=== PATIENT | female | born 1950 | race Caucasian/White ===

== ENCOUNTER 2016-12-17 22:24 | Emergency (ER) | payer MEDICARE ==
[2016-12-17 22:32] VITALS: BP 132/69
--- NOTE | 2016-12-17 23:49 | ER Document Report ---
HPI - HPI Patient complains to provider of: Rash Onset: Other - Several days ago Quality of pain: Fullness Pain Level: Denies Context: 56-year-old female was at her mother's house using a different laundry detergent and has developed a scaly itchy rash on her trunk and neck. She has a chronic rash under both breasts which is not the same. sHe came to the emergency room because she is unable to sleep due to the itching Associated Symptoms: None Exacerbated by: Denies Relieved by: Denies Similar symptoms previously: No Recently seen / treated by doctor: No - ROS ROS below otherwise negative: Yes Systems Reviewed and Negative: Yes All other systems reviewed and negative - REPRODUCTIVE Reproductive: DENIES: : - DERM Skin Color: Normal, [place] Past Medical History - General Information source: Patient - Social History Smoking Status: Never Smoker Frequency of alcohol use: None Drug Abuse: None Lives with: Spouse/Significant other Family History: Reviewed & Not Pertinent Patient has suicidal ideation: No Patient has homicidal ideation: No Renal/ Medical History: Denies: Hx Peritoneal Dialysis Surgical Hx: Negative - Immunizations Hx Diphtheria, Pertussis, Tetanus Vaccination: No Vertical Provider Document - CONSTITUTIONAL Agree With Documented VS: Yes Exam Limitations: No Limitations General Appearance: No Apparent Distress - INFECTION CONTROL TRAVEL OUTSIDE OF THE [place] IN LAST 30 DAYS: No - HEENT HEENT: Normal ENT Exam - NECK Neck: Supple - RESPIRATORY Respiratory: Breath Sounds Normal, No Respiratory Distress O2 Sat by Pulse Oximetry: 97 - CARDIOVASCULAR Cardiovascular: Regular Rate, Regular Rhythm - GI/ABDOMEN Gastrointestinal: Abdomen Soft, Abdomen Non-Tender - MUSCULOSKELETAL/EXTREMETIES Musculoskeletal/Extremeties: MAEW, FROM - NEURO Level of Consciousness: Awake, Alert - DERM Integumentary: Rash - Scaly maculopapular rash that is demarcated at the Bra line, strap line and waistline Course - Vital Signs Vital signs: Temp Pulse Resp BP Pulse Ox 98.0 F 77 16 132/69 H 97 12/17/16 22:29 12/17/16 22:29 12/17/16 22:29 12/17/16 22:29 12/17/16 22:29 Discharge - Discharge Clinical Impression: Contact dermatitis Qualifiers: Contact dermatitis type: allergic Contact dermatitis trigger: unspecified trigger Qualified Code(s): L23.9 - Allergic contact dermatitis, unspecified cause Condition: Good Disposition: HOME, SELF-CARE Instructions: Contact Dermatitis ([facility]), Steroid Medication, Use of Diphenhydramine, Family Physicians / Practices Additional Instructions: unscented, dye free detergents dove unscented soap to er if worse see retort pre cooker if persists Prescriptions: Prednisone [Deltasone 10 mg Tablet] 10 mg PO ASDIR PRN #15 tablet PRN Reason: Referrals: JEZ FELDMAN DO [ACTIVE STAFF] - Follow up as needed
[2016-12-18] MEDS ORDERED: DIPHENHYDRAMINE HCL 50 MG CAPSULE PO ONE (00:19)
[2016-12-18] MEDS ORDERED: PREDNISONE 20 MG TABLET PO ONE (00:19)
== END 2016-12-18 00:30 | disposition home or self-care (01) ==
LOC: ER 22:24
DX: L23.9 Allergic contact dermatitis, unspecified cause (principal); R21 Rash and other nonspecific skin eruption
CPT/HCPCS: 99282; A9270 ×2; J7512

== ENCOUNTER 2018-05-15 01:12 | Emergency (ER) | payer MEDICARE ==
[2018-05-15 01:18] VITALS: BP 126/62
[2018-05-15] MEDS ORDERED: HYDROXYZINE PAMOATE 50 MG CAPSULE PO ONE (01:37)
--- NOTE | 2018-05-15 01:41 | ER Document Report ---
HPI - HPI Pain Level: Denies Notes: Patient presents with complaint of rash ongoing since December. Patient reports she has been seen by her primary care provider in an urgent care and has tried Benadryl and prednisone without relief. Patient reports that the rash is itchy but does not hurt. Patient does report that she has been out working in her yard over the last several months. Patient unsure what has caused the rash. - REPRODUCTIVE LMP: na Reproductive: DENIES: : Past Medical History - General Information source: Patient - Social History Smoking Status: Current Every Day Smoker Family History: Reviewed & Not Pertinent - Medical History Medical History: Negative Renal/ Medical History: Denies: Hx Peritoneal Dialysis Surgical Hx: Negative - Immunizations Hx Diphtheria, Pertussis, Tetanus Vaccination: No Vertical Provider Document - CONSTITUTIONAL Notes: PHYSICAL EXAMINATION: GENERAL: Well-appearing, well-nourished and in no acute distress. HEAD: Atraumatic, normocephalic. EYES: Pupils equal round extraocular movements intact, conjunctiva are normal. ENT: Nares patent NECK: Normal range of motion LUNGS: No respiratory distress Musculoskeletal: Normal range of motion NEUROLOGICAL: Normal speech, normal gait. PSYCH: Normal mood, normal affect. SKIN: Warm, Dry, normal turgor, scattered pruritic rash with multiple larger lesions noted. - INFECTION CONTROL TRAVEL OUTSIDE OF THE [place] IN LAST 30 DAYS: No Course - Re-evaluation Re-evalutation: Rash does not appear to be anything life-threatening. Will place the patient on hydroxyzine as patient has already tried a course of prednisone without relief. Patient will be referred to dermatology. I did bring Dr. Mosquera to the room to evaluate the patient as well and she agrees with the plan of care. - Vital Signs Vital signs: Temp Pulse Resp BP Pulse Ox 97.5 F 77 18 126/62 H 97 05/15/18 01:17 05/15/18 01:17 05/15/18 01:17 05/15/18 01:17 05/15/18 01:17 Discharge - Discharge Clinical Impression: Rash Condition: Stable Disposition: HOME, SELF-CARE Additional Instructions: We are unsure exactly what is causing your rash but it does not appear to be life-threatening. Please take the hydroxyzine as directed to help with the itching. Please follow-up with the spreader, I have enclosed the contact information for them, call them tomorrow to get an appointment. Prescriptions: Hydroxyzine HCl [Atarax 25 mg Tablet] 1 - 2 tab PO QID #30 tablet Referrals: JEZ FELDMAN DO [ACTIVE STAFF] - Follow up as needed
== END 2018-05-15 01:49 | disposition home or self-care (01) ==
LOC: ER 01:12
DX: R21 Rash and other nonspecific skin eruption (principal); F17.200 Nicotine dependence, unspecified, uncomplicated
CPT/HCPCS: 99282; A9270

== ENCOUNTER → 2019-05-14 | Outpatient (CLI) | payer MEDICARE ==
--- NOTE | 2019-05-14 15:02 | WOMENS IMAGING REPORT ---
EXAM DESCRIPTION: U/S BREAST UNILAT LIMITED COMPLETED DATE/TIME: 05/14/2019 1:30 pm REASON FOR STUDY: R92.2 INCONCLUSIVE MAMMO R92.2 INCONCLUSIVE MAMMOGRAM COMPARISON: 05/05/2019 TECHNIQUE: Real-time and static grayscale imaging performed of the right breast targeted to the area of clinical/mammographic concern. Selected color Doppler images recorded. LIMITATIONS: None. FINDINGS: In the 10 o'clock position, there is an 8 x 5 x 7 mm hypoechoic nodule with incomplete pos terior wall and heterogeneous posterior shadowing. IMPRESSION: Indeterminate nodule. BIRAD: 4 Suspicious. Biopsy should be performed in the absence of clinical contra-indication. RECOMMENDATION: RECOMMENDED FOLLOW-UP: Ultrasound-guided biopsy right breast. COMMENT: The [employer] (A[employer]) has developed recommendations for screening MRI of the breasts in certain patient populations, to be used in conjunction with mammography. Breast MRI s urveillance may be appropriate for women with more than 20% lifetime risk of developing breast cancer as determined by genetic testing, significant family history of the disease, or history of mantle r adiation for Hodgkins Disease. ACR Practice Guidelines 2008. TECHNICAL DOCUMENTATION: JOB ID: [id number] [employer]- All Rights Reserved Reading location - IP/workstation name: [email or web address]
== END ==
LOC: WI 12:55
PROVIDERS: ATTEND Internal Medicine
DX: N63.10 Unspecified lump in the right breast, unspecified quadrant (principal)
CPT/HCPCS: 76642

== ENCOUNTER 2020-03-25 20:38 | Inpatient (IN) | payer MEDICARE ==
--- NOTE | 2020-03-26 01:26 | ER Document Report ---
ED GI/ - General Chief Complaint: Nausea/Vomiting/Diarrhea Stated Complaint: VOMITING/POSSIBLE SEIZURE Time Seen by Provider: 03/26/20 01:05 Primary Care Provider: CASSANDRA AYALA MD [ACTIVE STAFF] - Follow up as needed Notes: Patient is a 69-year-old female that comes emergency department for chief complaint of nausea and vomiting. Patient states she has had 3 days now of vomiting and today she just dry heaves several times. Patient denies any other symptoms including fever, sick contacts, diarrhea, abnormal bowel movements, chest pain, abdominal pain, flank pain. Patient states she actually feels much better now and denies any current symptoms. Patient denies any abdominal surgeries. She states that she was recently given Bactrim for a rash but has been taking this over a week, she only takes ibuprofen as needed for pain, she denies regular alcohol, or denies smoking, denies recreational drugs, denies any other medical history at all. TRAVEL OUTSIDE OF THE [place] IN LAST 30 DAYS: No - Related Data Allergies/Adverse Reactions: No Known Allergies Allergy (Unverified 02/19/12 03:33) Past Medical History - General Information source: Patient - Social History Smoking Status: Former Smoker Chew tobacco use (# tins/day): No Frequency of alcohol use: None Drug Abuse: None Lives with: Alone Family History: Reviewed & Not Pertinent Renal/ Medical History: Denies: Hx Peritoneal Dialysis - Immunizations Hx Diphtheria, Pertussis, Tetanus Vaccination: No Review of Systems - Review of Systems Constitutional: No symptoms reported EENT: No symptoms reported Cardiovascular: No symptoms reported Respiratory: No symptoms reported Gastrointestinal: See HPI Genitourinary: No symptoms reported Female Genitourinary: No symptoms reported Musculoskeletal: No symptoms reported Skin: No symptoms reported Hematologic/Lymphatic: No symptoms reported Neurological/Psychological: No symptoms reported Physical Exam - Vital signs Vitals: Temp Pulse Resp BP Pulse Ox 99.9 F 102 H 20 159/95 H 97 03/25/20 20:47 03/25/20 20:47 03/25/20 20:47 03/25/20 20:47 03/25/20 20:47 - Notes Notes: GENERAL: Alert, interacts well. No acute distress. HEAD: Normocephalic, atraumatic. EYES: Pupils equal, round, and reactive to light. Extraocular movements intact. ENT: Oral mucosa moist, tongue midline. Oropharynx unremarkable. Airway patent. NECK: Full range of motion. Supple. Trachea midline. No lymphadenopathy. LUNGS: Clear to auscultation bilaterally, no wheezes, rales, or rhonchi. No respiratory distress. Non-tender chest wall. HEART: Regular rate and rhythm. No murmur ABDOMEN: Mild generalized tenderness, nonspecific, no guarding. RECTAL: Nontender, no bleeding noted, no masses or lesions noted, Hemoccult negative. Exam performed with Kanchan BOYKIN at bedside. EXTREMITIES: Moves all 4 extremities spontaneously. No edema, normal radial and dorsalis pedis pulses bilaterally. No cyanosis. BACK: no cervical, thoracic, lumbar midline tenderness. No saddle anesthesia, normal distal neurovascular exam. Moves all extremities in full range of motion. NEUROLOGICAL: Alert and oriented x3. Normal speech. Cranial nerves II through XII grossly intact. Strength 5/5 in all extremities. PSYCH: Normal affect, normal mood. SKIN: Various pick lesions in multiple stages of healing over the extremities, no overt erythema, induration, fluctuance, swelling, or concerning findings. No active infection noted. Slightly pale. Course - Re-evaluation Re-evalutation: Patient initially very vague, stating she is not having any symptoms anymore, states she feels much better. Patient's blood pressure slightly borderline but she states this is her baseline, patient is very petite in size. Patient has some mild generalized abdominal tenderness, nonspecific, no guarding. Patient also has multiple areas that appear to be picked with scabs but there does not appear to be any current cellulitis or concerning findings in regards to the sk in exam. Lungs clear, no nuchal rigidity or headache. Work-up pending. Patient initially refusing IV, however she changed her mind and full work-up was completed. CBC shows leukocytosis at 14.5 thousand with 8% bandemia left shift. Hemoglobin is significantly low at 6.6 with microcytic anemia. I did perform a rectal exam but this was unremarkable and Hemoccult negative. Previous hemoglobin in the system is back in 2011 and was 11.9. Patient denies blood in stool, hematemesis, vaginal bleeding. She is not on a blood thinner. Acute abdominal series and x-ray unremarkable, chemistry nonspecific with hyponatremia which is also new compared to prior. Urinalysis unremarkable. Discussed with Dr. Mon, will transfuse 1 unit, CT abd/pelvis pending. Patient began to have a fever, this actually began before the blood transfusion, patient will be treated with Tylenol. I reevaluated patient during transfusion, she has no rash, flushing, itching, or any other complaints. No significant change from prior. As result I do not suspect a transfusion reaction, I am more concerned about SIRS, CT of the abdomen pelvis with no acute findings, unsure of infection source at this time. Started on broad-spectrum antibiotics with cefepime, discussed with Dr. Mon, will discuss with hospitalist for admission. Patient's primary care is Dr. Ayala. I spoke with Dr. Saunders, on-call for Dr. Ayala, patient accepted to [facility] full admission, he requests vancomycin and COVID testing. I have discussed with patient in detail, she states appreciation and agreement with admission. - Vital Signs Vital signs: Temp Pulse Resp BP Pulse Ox 102.6 F H 96 18 106/51 L 97 03/26/20 05:52 03/26/20 04:40 03/26/20 04:40 03/26/20 04:40 03/26/20 04:40 - Laboratory Result Diagrams: 03/26/20 01:04 03/26/20 01:04 Laboratory results interpreted by me: 03/25/20 03/26/20 03/26/20 20:41 01:04 01:04 WBC 14.5 H Hgb 6.6 L Hct 22.1 L MCV 59 L MCH 17.6 L MCHC 30.0 L RDW 20.6 H Seg Neuts % (Manual) 84 H Band Neutrophils % 8 H Lymphocytes % (Manual) 4 L Abs Neuts (Manual) 13.3 H Sodium 126.8 L Chloride 95 L Carbon Dioxide 21 L Glucose 130 H POC Glucose 151 H Calcium 7.8 L Direct Bilirubin 0.8 H AST 77 H Total Protein 6.1 L Albumin 3.1 L Lipase 18.0 L Urine Urobilinogen Crossmatch 03/26/20 03/26/20 02:40 03:05 WBC Hgb Hct MCV MCH MCHC RDW Seg Neuts % (Manual) Band Neutrophils % Lymphocytes % (Manual) Abs Neuts (Manual) Sodium Chloride Carbon Dioxide Glucose POC Glucose Calcium Direct Bilirubin AST Total Protein Albumin Lipase Urine Urobilinogen 4.0 H Crossmatch See Detail - EKG Interpretation by Me Additional EKG results interpreted by me: EKG shows sinus rhythm at a rate of 91, normal axis, QTC prolonged at 517, borderline left bundle branch block, no T wave inversions or ST segment changes in consecutive leads. Discharge - Discharge Clinical Impression: Anemia requiring transfusions, Bandemia Fever Qualifiers: Fever type: unspecified Qualified Code(s): R50.9 - Fever, unspecified Vomiting Qualifiers: Vomiting type: unspecified Vomiting Intractability: non-intractable Nausea presence: with nausea Qualified Code(s): R11.2 - Nausea with vomiting, unspecified Condition: Stable Disposition: ADMITTED INPATIENT Admitting Provider: Chip - for Dr. Ayala Unit Admitted: [facility] Referrals: CASSANDRA AYALA MD [ACTIVE STAFF] - Follow up as needed
[2020-03-26 01:54] LABS: ALBUMIN 3.1 g/dL (3.5-5.0); ALKALINE PHOSPHATASE 104 U/L (38-126); ANION GAP 11 (5-19); ASPARTATE AMINO TRANSFERASE 77 U/L (14-36); BILIRUBIN,DIRECT 0.8 mg/dL (0.0-0.4); BILIRUBIN,TOTAL 1.1 mg/dL (0.2-1.3); BLOOD UREA NITROGEN 12 mg/dL (7-20); CALCIUM 7.8 mg/dL (8.4-10.2); CARBON DIOXIDE 21 mmol/L (22-30); CHLORIDE 95 mmol/L (98-107); GLUCOSE 130 mg/dL (75-110); POTASSIUM 3.6 mmol/L (3.6-5.0); TOTAL PROTEIN 6.1 g/dL (6.3-8.2)
--- NOTE | 2020-03-26 02:21 | RADIOLOGY REPORT (SQ) ---
EXAM DESCRIPTION: XR ABDOMEN SUPINE AND ERECT WITH CHEST (ABD ACUTE SERIES) COMPLETED DATE/TME: 03/26/2020 01:24 CLINICAL HISTORY: 69 years, Female, vomiting x3 days, abd pain COMPARISON: Chest x-ray 02/19/2012 NUMBER OF VIEWS: 3 TECHNIQUE: Upright chest with supine and erect views of the abdomen LIMITATIONS: None. FINDINGS: Heart size normal. Lungs clear. No pneumothorax. No free air under the hemidiaphragms. Bowel gas pattern is nonspecific. Osteopenia. Moderate gas and stool in the colon IMPRESSION: No acute cardiopulmonary process. Moderate gas and stool in the colon copyright 2011 [employer]- All Rights Reserved
[2020-03-26 02:26] LABS: HEMATOCRIT 22.1 % (36.0-47.0); MEAN CORPUSCULAR HEMOGLOBIN 17.6 pg (27.0-33.4); PLATELET COUNT 247 10^3/uL (150-450); RED BLOOD COUNT 3.77 10^6/uL (3.72-5.28); RED CELL DISTRIBUTION WIDTH 20.6 % (11.5-14.0); WHITE BLOOD COUNT 14.5 10^3/uL (4.0-10.5)
[2020-03-26 02:48] LABS: MEAN CORPUSCULAR VOLUME 59 fl (80-97)
[2020-03-26 02:51] LABS: ABSOLUTE LYMPHOCYTES# (MANUAL) 0.6 10^3/uL (0.5-4.7); ABSOLUTE MONOCYTES # (MANUAL) 0.6 10^3/uL (0.1-1.4); BAND NEUTROPHILS % (MANUAL) 8 % (3-5); BASOPHILS % (MANUAL) 0 % (0-2); EOSINOPHILS % (MANUAL) 0 % (0-6); LYMPHOCYTES % (MANUAL) 4 % (13-45); MONOCYTES % (MANUAL) 4 % (3-13); SEGMENTED NEUTROPHILS % (MAN) 84 % (42-78); TOTAL CELLS COUNTED 100
[2020-03-26 02:54] LABS: ANISOCYTOSIS 2+; OVALOCYTES 1+; POIKILOCYTOSIS 2+; POLYCHROMASIA SLIGHT; SCHISTOCYTES SLIGHT; TEAR DROP CELLS SLIGHT; TOXIC GRANULATION 1+; TOXIC VACUOLATION PRESENT
[2020-03-26 02:55] LABS: PLATELET COMMENT ADEQUATE
[2020-03-26 02:56] LABS: HEMOGLOBIN 6.6 g/dL (12.0-15.5)
[2020-03-26 03:06] LABS: APPEARANCE,URINE CLEAR; BILIRUBIN,URINE NEGATIVE (NEGATIVE); COLOR,URINE YELLOW; GLUCOSE, URINE NEGATIVE (NEGATIVE); KETONES,URINE NEGATIVE (NEGATIVE); LEUKOCYTE ESTERASE,URINE NEGATIVE (NEGATIVE); NITRITE,URINE NEGATIVE (NEGATIVE); PROTEIN,URINE NEGATIVE (NEGATIVE); URINE SPECIFIC GRAVITY 1.008
[2020-03-26] MEDS ORDERED: NORMAL SALINE 250 ML IV PRN ×2 (03:06)
--- NOTE | 2020-03-26 04:25 | RADIOLOGY REPORT (SQ) ---
EXAM: CT abdomen and pelvis with IV contrast CLINICAL DATA: 69-year-old female with abdominal pain and vomiting TECHNICAL DATA: Axial CT imaging of the abdomen and pelvis was performed following the administration of intravenous contrast.. Oral contrast was not administered. Sagittal and coronal reconstructed images were then performed. The CT study is performed according to ALARA (as low as reasonably achievable) or ALARA/IMAGE GENTLY, with automatic adjustment of mA and/or kV according to patient size. Performed on: 03/26/2020 at 3:51 AM. Comparison: No prior studies were available for comparison. FINDINGS: Lung bases: The lung bases are clear. Liver:The liver is normal in size and configuration. No focal hepatic abnormalities are identified. There is slightly decreased attenuation of the liver which can be seen with fatty infiltration. Spleen:The spleen is normal is size, configuration and attenuation. Gallbladder and bile duct: The gallbladder is well distended and unremarkable. There is no biliary ductal dilatation. Pancreas: The pancreas is grossly normal in size and configuration. Adrenal Glands:The adrenal glands are normal in size and configuration. Kidneys:The kidneys are normal in size and configuration. There is no evidence of hydronephrosis. There is no evidence of nephrolithiasis. No definite solid or cystic renal mass lesions are identified. Stomach:The stomach is grossly normal. There is a small hiatal hernia. Bowel:The bowel gas pattern is non specific and non obstructive. Appendix: The appendix is normal. Free air:There is no evidence of free air. Free fluid: There is no evidence of free fluid. Vasculature: The aorta is normal in caliber and contour. The inferior vena cava is grossly unremarkable. Lymphadenopathy: No pathologic lymphadenopathy is identified. Bladder: The bladder is partially distended and smooth in contour. Reproductive: The uterus is grossly within normal limits. Bones: No acute osseous abnormalities are identified. There is trace anterolisthesis of L4 relative to L5. Soft tissues: No focal soft tissue abnormalities are identified. IMPRESSION: 1. No evidence of acute intra-abdominal or intrapelvic pathology. 2. There is no evidence of bowel obstruction. 3. Very small hiatal hernia.
[2020-03-26] MEDS ORDERED: ACETAMINOPHEN 325 MG TABLET PO ONE (04:47)
[2020-03-26] MEDS ORDERED: ACETAMINOPHEN 325 MG TABLET ONE (04:47)
[2020-03-26] MEDS ORDERED: CEFEPIME 2 GM/D5W RTU 2 GM/50 ML RTUPB IV ONE ×3 (04:48→22:27)
[2020-03-26] MEDS ORDERED: IBUPROFEN 400 MG TABLET PO ONE (05:42)
[2020-03-26] MEDS ORDERED: VANCOMYCIN HCL INJ 1000 MG VIAL IV ONE (05:51)
--- NOTE | 2020-03-26 08:22 | EKG REPORT ---
SEVERITY:- ABNORMAL ECG - SINUS RHYTHM INCOMPLETE LEFT BUNDLE BRANCH BLOCK LOW VOLTAGE IN FRONTAL LEADS CONSIDER ANTERIOR INFARCT : Confirmed by: Donnell Garcia MD 26-Mar-2020 08:20:56
[2020-03-26 09:16] LABS: HEMATOCRIT 25.1 % (36.0-47.0); HEMOGLOBIN 8.1 g/dL (12.0-15.5); MEAN CORPUSCULAR HEMOGLOBIN 20.1 pg (27.0-33.4); MEAN CORPUSCULAR HGB CONC 32.4 g/dL (32.0-36.0); MEAN CORPUSCULAR VOLUME 62 fl (80-97); PLATELET COUNT 188 10^3/uL (150-450); RED BLOOD COUNT 4.05 10^6/uL (3.72-5.28); RED CELL DISTRIBUTION WIDTH 25.7 % (11.5-14.0); WHITE BLOOD COUNT 9.1 10^3/uL (4.0-10.5)
[2020-03-26] MEDS ORDERED: VANCOMYCIN HCL 1,000 MG in DEXTROSE 5%-WATER 250 ML IV ONE (09:30)
[2020-03-26 09:43] LABS: ABSOLUTE LYMPHOCYTES# (MANUAL) 0.2 10^3/uL (0.5-4.7); ABSOLUTE MONOCYTES # (MANUAL) 0.3 10^3/uL (0.1-1.4); BAND NEUTROPHILS % (MANUAL) 3 % (3-5); BASOPHILS % (MANUAL) 0 % (0-2); EOSINOPHILS % (MANUAL) 1 % (0-6); LYMPHOCYTES % (MANUAL) 1 % (13-45); MONOCYTES % (MANUAL) 3 % (3-13); SEGMENTED NEUTROPHILS % (MAN) 91 % (42-78); TOTAL CELLS COUNTED 100
[2020-03-26 09:45] LABS: ANISOCYTOSIS 3+; HYPOCHROMASIA 2+; POIKILOCYTOSIS SLIGHT; POLYCHROMASIA SLIGHT; TEAR DROP CELLS SLIGHT; TOXIC GRANULATION 1+; TOXIC VACUOLATION PRESENT
[2020-03-26] MEDS ORDERED: NORMAL SALINE 500 ML IV ONE (09:45)
[2020-03-26 09:46] LABS: PLATELET COMMENT ADEQUATE
[2020-03-26] MEDS ORDERED: CEFEPIME HCL 2 GM in DEXTROSE 5%-WATER 50 ML IV ONE (11:30)
[2020-03-26] MEDS: NORMAL SALINE 1000 ML 1,000 ML IV PRN (14:50)
[2020-03-26] MEDS ORDERED: ONDANSETRON HCL INJ/PF 4 MG/2 ML SDV ONE (20:47)
[2020-03-26] MEDS ORDERED: ONDANSETRON HCL INJ/PF 4 MG/2 ML SDV IV PRN (21:08)
--- NOTE | 2020-03-26 21:08 | PDOC H&P ---
History of Present Illness Admission Date/PCP: 03/26/20 05:58 CASSANDRA AYALA MD Patient complains of: Nausea, Vomiting, Diarrhea History of Present Illness: KIEL ADAMES is a 69 year old female patient of Dr Ayala who presented to the ED with 3 days history of nausea and vomiting and subsequent development of diarrhea a day prior to her presentation. She denied any associated abdominal pain. No tarry or black stool. No hematemesis or hematochexia. Patient denied any definite fever or chills prior to her presentation but reported development of fever while in the ED. She denied consumption of any unusual drink or food prior to onset of her symptoms. No associated dysuria, hematuria, frequency, or flank pain. She denied any coughing or chest pain. No headache or dizziness. She denied recent travel or exposure to sick individual. Her initial ED evaluation was significant for vitals suggestive of inflammatory process with tachycardia, tachypnea, elevated temperature, anemia, and significant leukocytosis with left shift and bandemia. She reported use of prescribed Bactrim and OTC Ibuprofen recently. She was advised hospitalization for further evaluation and management. Her morbidities are listed below. Past Medical History Psychiatric Medical History: Reports: Depression Social History Lives with: Alone Smoking Status: Never Smoker Electronic Cigarette use?: No Frequency of Alcohol Use: Rare Hx Recreational Drug Use: No Drugs: None Hx Prescription Drug Abuse: No - Advance Directive Resuscitation Status: Full Code Family History Family History: Reviewed & Not Pertinent Parental Family History Reviewed: Yes Children Family History Reviewed: Yes Sibling(s) Family History Reviewed.: Yes Medication/Allergy Home Medications: Esomeprazole Magnesium [Nexium] 20 mg PO DAILY 03/26/20 Allergies/Adverse Reactions: No Known Allergies Allergy (Unverified 02/19/12 03:33) Review of Systems Constitutional: ABSENT: chills, fever(s), headache(s), weight gain, weight loss Eyes: ABSENT: visual disturbances Ears: ABSENT: hearing changes Cardiovascular: ABSENT: chest pain, dyspnea on exertion, edema, orthropnea, palpitations Respiratory: ABSENT: cough, hemoptysis Gastrointestinal: PRESENT: diarrhea, nausea, vomiting. ABSENT: abdominal pain, constipation, hematemesis, hematochezia Genitourinary: ABSENT: dysuria, hematuria Musculoskeletal: ABSENT: joint swelling Integumentary: ABSENT: rash, wounds Neurological: ABSENT: abnormal gait, abnormal speech, confusion, dizziness, focal weakness, syncope Psychiatric: ABSENT: anxiety, depression, homidical ideation, suicidal ideation Endocrine: ABSENT: cold intolerance, heat intolerance, menstrual abnormalities, polydipsia, polyuria Hematologic/Lymphatic: ABSENT: easy bleeding, easy bruising, lymphadenopathy Physical Exam Vital Signs: Temp Pulse Resp BP Pulse Ox 98.8 F 96 18 96/51 L 99 03/26/20 19:42 03/26/20 19:42 03/26/20 19:42 03/26/20 19:42 03/26/20 19:42 Intake & Output 03/25/20 03/26/20 03/27/20 06:59 06:59 06:59 Intake Total 0 1340 Balance 0 1340 Weight 50 kg 51.9 kg General appearance: PRESENT: no acute distress Head exam: PRESENT: atraumatic, normocephalic Eye exam: PRESENT: conjunctiva pink, EOMI, PERRLA. ABSENT: scleral icterus Ear exam: PRESENT: normal external ear exam Mouth exam: PRESENT: moist, tongue midline Neck exam: PRESENT: full ROM. ABSENT: carotid bruit, JVD, lymphadenopathy, thyromegaly Respiratory exam: PRESENT: clear to auscultation izzy Cardiovascular exam: PRESENT: RRR, +S1, +S2. ABSENT: diastolic murmur, rubs, systolic murmur Pulses: PRESENT: normal dorsalis pedis pul, +2 pedal pulses bilateral Vascular exam: PRESENT: normal capillary refill GI/Abdominal exam: PRESENT: normal bowel sounds, soft. ABSENT: distended, guarding, mass, organolmegaly, rebound, tenderness Rectal exam: PRESENT: deferred Extremities exam: ABSENT: pedal edema Neurological exam: PRESENT: alert, awake, oriented to person, oriented to place, oriented to time, oriented to situation, CN II-XII grossly intact. ABSENT: motor sensory deficit Psychiatric exam: PRESENT: appropriate affect, normal mood. ABSENT: homicidal ideation, suicidal ideation Skin exam: PRESENT: dry, intact, warm. ABSENT: cyanosis, rash Results Laboratory Results: 03/26/20 09:07 03/26/20 01:04 03/26/20 03/26/20 03/26/20 01:04 01:04 01:04 WBC 14.5 H RBC 3.77 Hgb 6.6 L Hct 22.1 L MCV 59 L MCH 17.6 L MCHC 30.0 L RDW 20.6 H Plt Count 247 Seg Neutrophils % Not Reportable Sodium 126.8 L Potassium 3.6 Chloride 95 L Carbon Dioxide 21 L Anion Gap 11 BUN 12 Creatinine 0.71 Est GFR ( Amer) > 60 Glucose 130 H Lactic Acid 1.6 Calcium 7.8 L Total Bilirubin 1.1 AST 77 H Alkaline Phosphatase 104 Total Protein 6.1 L Albumin 3.1 L Lipase 18.0 L Urine Color Urine Appearance Urine pH Ur Specific [place] Urine Protein Urine Glucose (UA) Urine Ketones Urine Blood Urine Nitrite Ur Leukocyte Esterase Urine WBC (Auto) Urine RBC (Auto) Blood Type Antibody Screen 03/26/20 03/26/20 03/26/20 02:40 03:05 09:07 WBC 9.1 RBC 4.05 Hgb 8.1 L Hct 25.1 L MCV 62 L MCH 20.1 L MCHC 32.4 RDW 25.7 H Plt Count 188 Seg Neutrophils % Not Reportable Sodium Potassium Chloride Carbon Dioxide Anion Gap BUN Creatinine Est GFR ( Amer) Glucose Lactic Acid Calcium Total Bilirubin AST Alkaline Phosphatase Total Protein Albumin Lipase Urine Color YELLOW Urine Appearance CLEAR Urine pH 6.0 Ur Specific [place] 1.008 Urine Protein NEGATIVE Urine Glucose (UA) NEGATIVE Urine Ketones NEGATIVE Urine Blood NEGATIVE Urine Nitrite NEGATIVE Ur Leukocyte Esterase NEGATIVE Urine WBC (Auto) 1 Urine RBC (Auto) 1 Blood Type O POSITIVE Antibody Screen NEGATIVE 03/26/20 03/26/20 01:04 06:30 Troponin I 0.017 0.018 Impressions: Acute Abdomen Series 03/26/20 01:24 IMPRESSION: No acute cardiopulmonary process. Moderate gas and stool in the colon copyright 2011 [employer]- All Rights Reserved Abdomen/Pelvis CT 03/26/20 02:59 IMPRESSION: 1. No evidence of acute intra-abdominal or intrapelvic pathology. 2. There is no evidence of bowel obstruction. 3. Very small hiatal hernia. Assessment & Plan - Diagnosis (1) SIRS (systemic inflammatory response syndrome) Is this a current diagnosis for this admission?: Yes Plan: See admitting attending physician orders for details of care plan. (2) Anemia requiring transfusions Is this a current diagnosis for this admission?: Yes Plan: See admitting attending physician orders for details of care plan. (3) Gastroenteritis Is this a current diagnosis for this admission?: Yes Plan: See admitting attending physician orders for details of care plan. (4) Suspected COVID-19 virus infection Is this a current diagnosis for this admission?: Yes Plan: See admitting attending physician orders for details of care plan. - Time Time Spent: 50 to 70 Minutes Medications reviewed and adjusted accordingly: Yes Anticipated Discharge Disposition: Home with Home Health Anticipated Discharge Timeframe: within 72 hours - Inpatient Certification Based on my medical assessment, after consideration of the patient's comorbidities, presenting symptoms, or acuity I expect that the services needed warrant INPATIENT care.: Yes I certify that my determination is in accordance with my understanding of Medic are's requirements for reasonable and necessary INPATIENT services [42 CFR 412.3e].: Yes Medical Necessity: Significant Comorbidiites Make Outpatient Treatment Too Risky, Need Close Monitoring Due to Risk of Patient Decompensation, Need For IV Fluids, Need For Continuous Telemetry Monitoring, Need for IV Antibiotics, Risk of Complication if Not Cared For in Hospital, Risk of Diagnosis Which Will Require Inpatient Eval/Care/Monitoring Post Hospital Care: D/C [employer] Worker Documentation - Plan Summary Plan Summary: See admitting attending physician orders for details of care plan.
[2020-03-26] MEDS ORDERED: VANCOMYCIN HCL 0 MG in DEXTROSE 5%-WATER 250 ML IV NR (21:15)
[2020-03-26] MEDS ORDERED: CEFEPIME 2 GM/D5W RTU 2 GM/50 ML RTUPB IV SCH (22:00)
[2020-03-26 22:11] LABS: ABSOLUTE RETICS # 0.053 10^6/uL (0.028-0.122); RETICULOCYTE COUNT (AUTO) 1.29 % (0.66-2.85)
--- NOTE | 2020-03-26 22:26 | RADIOLOGY REPORT (SQ) ---
EXAM DESCRIPTION: XR CHEST 1 VIEW COMPLETED DATE/TME: 03/26/2020 00:00 CLINICAL HISTORY: 69 years Female SIRS COMPARISON: 02/19/2012. FINDINGS: The cardiomediastinal silhouette appears unremarkable. No consolidating infiltrates or pleural effusions. No pneumothorax. IMPRESSION: No acute abnormality is identified.
[2020-03-26 23:16] LABS: FOLATE 8.82 ng/mL (>2.76)
[2020-03-26 23:19] LABS: IRON(TIBC) < 10.1 ug/dL (37-170)
[2020-03-27 05:40] LABS: HEMATOCRIT 23.9 % (36.0-47.0); MEAN CORPUSCULAR HEMOGLOBIN 19.9 pg (27.0-33.4); MEAN CORPUSCULAR HGB CONC 32.2 g/dL (32.0-36.0); MEAN CORPUSCULAR VOLUME 62 fl (80-97); PLATELET COUNT 148 10^3/uL (150-450); RED BLOOD COUNT 3.86 10^6/uL (3.72-5.28); RED CELL DISTRIBUTION WIDTH 25.1 % (11.5-14.0); WHITE BLOOD COUNT 6.8 10^3/uL (4.0-10.5)
[2020-03-27 06:11] LABS: ALBUMIN 2.4 g/dL (3.5-5.0); ALKALINE PHOSPHATASE 164 U/L (38-126); ANION GAP 7 (5-19); ASPARTATE AMINO TRANSFERASE 95 U/L (14-36); BILIRUBIN,DIRECT 2.2 mg/dL (0.0-0.4); BILIRUBIN,TOTAL 2.5 mg/dL (0.2-1.3); BLOOD UREA NITROGEN 11 mg/dL (7-20); CALCIUM 7.3 mg/dL (8.4-10.2); CARBON DIOXIDE 18 mmol/L (22-30); CHLORIDE 104 mmol/L (98-107); GLUCOSE 97 mg/dL (75-110); TOTAL PROTEIN 5.1 g/dL (6.3-8.2)
[2020-03-27 07:06] LABS: ABSOLUTE LYMPHOCYTES# (MANUAL) 0.9 10^3/uL (0.5-4.7); ABSOLUTE MONOCYTES # (MANUAL) 0.3 10^3/uL (0.1-1.4); BAND NEUTROPHILS % (MANUAL) 1 % (3-5); BASOPHILS % (MANUAL) 0 % (0-2); EOSINOPHILS % (MANUAL) 4 % (0-6); LYMPHOCYTES % (MANUAL) 13 % (13-45); MONOCYTES % (MANUAL) 5 % (3-13); PLATELET COMMENT DECREASED; SEGMENTED NEUTROPHILS % (MAN) 77 % (42-78); TOTAL CELLS COUNTED 100
[2020-03-27 07:09] LABS: ANISOCYTOSIS 3+
[2020-03-27 07:11] LABS: BURR CELLS 2+
[2020-03-27 07:12] LABS: OVALOCYTES 1+; SCHISTOCYTES SLIGHT
[2020-03-27 07:17] LABS: HEMOGLOBIN 7.7 g/dL (12.0-15.5)
[2020-03-27] MEDS: POTASSIUM CHLORIDE 20 MEQ/50 ML RTU IV SCH ×3 (07:31→11:25)
[2020-03-27] MEDS: NORMAL SALINE 1000 ML 1,000 ML IV PRN ×2 (07:32→15:34)
[2020-03-27] MEDS: ENOXAPARIN SODIUM INJ 40 MG/0.4 ML DISP.SYRIN SUBCUT SCH (09:12)
--- NOTE | 2020-03-27 10:16 | PDOC PROGRESS REPORT ---
Subjective Progress Note for:: 03/27/20 Subjective:: No more diarrhea or vomiting but still reported mild nausea. No abdominal pain. No chest pain or difficulty with breathing. No fever or chills. Reason For Visit: ANEMIA,BANDEMIA,FEVER Physical Exam Vital Signs: Temp Pulse Resp BP Pulse Ox 98.4 F 91 17 108/53 L 100 03/27/20 07:23 03/27/20 07:23 03/27/20 07:23 03/27/20 07:23 03/27/20 07:23 Intake & Output 03/26/20 03/27/20 03/28/20 06:59 06:59 06:59 Intake Total 0 2690 42 Balance 0 2690 42 Weight 50 kg 53.3 kg General appearance: PRESENT: no acute distress Head exam: PRESENT: atraumatic, normocephalic Eye exam: PRESENT: conjunctiva pale. ABSENT: scleral icterus Mouth exam: PRESENT: moist Respiratory exam: PRESENT: clear to auscultation izzy Cardiovascular exam: PRESENT: RRR, +S1, +S2. ABSENT: diastolic murmur, rubs, systolic murmur Vascular exam: ABSENT: pallor GI/Abdominal exam: PRESENT: normal bowel sounds, soft. ABSENT: distended, guarding, mass, organolmegaly, rebound, tenderness Extremities exam: ABSENT: pedal edema Neurological exam: PRESENT: alert, awake, oriented to person, oriented to place, oriented to time, oriented to situation, CN II-XII grossly intact. ABSENT: motor sensory deficit Psychiatric exam: PRESENT: appropriate affect, normal mood. ABSENT: homicidal ideation, suicidal ideation Skin exam: PRESENT: dry, warm Results Laboratory Results: 03/27/20 04:50 03/27/20 04:50 03/26/20 03/26/20 03/27/20 21:38 21:38 04:50 WBC 6.8 RBC 3.86 Hgb 7.7 L Hct 23.9 L MCV 62 L MCH 19.9 L MCHC 32.2 RDW 25.1 H Plt Count 148 L Seg Neutrophils % Not Reportable Retic Count (auto) 1.29 Sodium Potassium Chloride Carbon Dioxide Anion Gap BUN Creatinine Est GFR ( Amer) Glucose Calcium Magnesium Iron < 10.1 L TIBC 322 Ferritin 68.10 Total Bilirubin AST Alkaline Phosphatase Total Protein Albumin Vitamin B12 548.0 Folate 8.82 03/27/20 03/27/20 04:50 04:50 WBC RBC Hgb Hct MCV MCH MCHC RDW Plt Count Seg Neutrophils % Retic Count (auto) Sodium 129.1 L Potassium 3.0 L* Chloride 104 Carbon Dioxide 18 L Anion Gap 7 BUN 11 Creatinine 0.58 Est GFR ( Amer) > 60 Glucose 97 Calcium 7.3 L Magnesium 1.8 Iron TIBC Ferritin Total Bilirubin 2.5 H AST 95 H Alkaline Phosphatase 164 H Total Protein 5.1 L Albumin 2.4 L Vitamin B12 Folate 03/26/20 03/26/20 01:04 06:30 Troponin I 0.017 0.018 Impressions: Chest X-Ray 03/26/20 00:00 IMPRESSION: No acute abnormality is identified. Acute Abdomen Series 03/26/20 01:24 IMPRESSION: No acute cardiopulmonary process. Moderate gas and stool in the colon copyright 2010 [employer]- All Rights Reserved Abdomen/Pelvis CT 03/26/20 02:59 IMPRESSION: 1. No evidence of acute intra-abdominal or intrapelvic pathology. 2. There is no evidence of bowel obstruction. 3. Very small hiatal hernia. Assessment & Plan - Diagnosis (1) SIRS (systemic inflammatory response syndrome) Is this a current diagnosis for this admission?: Yes (2) Anemia requiring transfusions Is this a current diagnosis for this admission?: Yes (3) Gastroenteritis Is this a current diagnosis for this admission?: Yes (4) Suspected COVID-19 virus infection Is this a current diagnosis for this admission?: Yes (5) Abnormal mammogram of right breast Is this a current diagnosis for this admission?: Yes Plan: In view of her mammogram and right breast US findings in 04/2019 along with her presentation, I had extensive discussion with her regarding recommendation for a biopsy. She will think about it and we will schedule as she agreed to the procedure. - Time Time Spent with patient: 25-34 minutes Level of Care: TELE Medications reviewed and adjusted accordingly: Yes Anticipated discharge: Home with Homehealth Anticipated DC Timeframe: within 72 hours - Inpatient Certification Based on my medical assessment, after consideration of the patient's comorbidities, presenting symptoms, or acuity I expect that the services needed warrant INPATIENT care.: Yes I certify that my determination is in accordance with my understanding of Medicare's requirements for reasonable and necessary INPATIENT services [42 CFR 412.3e].: Yes Medical Necessity: Significant Comorbidiites Make Outpatient Treatment Too Risky, Need Close Monitoring Due to Risk of Patient Decompensation, Need For IV Fluids, Need For Continuous Telemetry Monitoring, Need for IV Antibiotics, Risk of Complication if Not Cared For in Hospital, Risk of Diagnosis Which Will R equire Inpatient Eval/Care/Monitoring Post Hospital Care: D/C Winemaker Documentation - Plan Summary Plan Summary: Continue current medication management. Transfuse 1 unit PRBC. Potassium replacement in progress. Obtain CBC with diff and CMP in AM.
[2020-03-27] MEDS ORDERED: NORMAL SALINE 250 ML IV PRN ×2 (10:23)
[2020-03-27] MEDS: CEFEPIME HCL 2 GM in DEXTROSE 5%-WATER 50 ML IV SCH ×2 (11:03→21:27)
[2020-03-27] MEDS: PANTOPRAZOLE SODIUM 40 MG TABLET.DR PO SCH (11:03)
[2020-03-27 17:21] LABS: HEMATOCRIT 30.6 % (36.0-47.0); MEAN CORPUSCULAR HEMOGLOBIN 21.5 pg (27.0-33.4); MEAN CORPUSCULAR HGB CONC 32.6 g/dL (32.0-36.0); PLATELET COUNT 211 10^3/uL (150-450); RED BLOOD COUNT 4.64 10^6/uL (3.72-5.28); RED CELL DISTRIBUTION WIDTH 27.1 % (11.5-14.0); WHITE BLOOD COUNT 9.2 10^3/uL (4.0-10.5)
[2020-03-27 17:24] LABS: MEAN CORPUSCULAR VOLUME 66 fl (80-97)
[2020-03-27 17:44] LABS: ABSOLUTE LYMPHOCYTES# (MANUAL) 0.7 10^3/uL (0.5-4.7); ABSOLUTE MONOCYTES # (MANUAL) 0.4 10^3/uL (0.1-1.4); BASOPHILS % (MANUAL) 1 % (0-2); EOSINOPHILS % (MANUAL) 5 % (0-6); LYMPHOCYTES % (MANUAL) 7 % (13-45); MONOCYTES % (MANUAL) 4 % (3-13); SEGMENTED NEUTROPHILS % (MAN) 82 % (42-78); TOTAL CELLS COUNTED 100
[2020-03-27 17:47] LABS: ANISOCYTOSIS 2+; BURR CELLS SLIGHT; HYPOCHROMASIA SLIGHT; OVALOCYTES SLIGHT; PLATELET COMMENT ADEQUATE; POIKILOCYTOSIS 1+; POLYCHROMASIA SLIGHT; SCHISTOCYTES SLIGHT; TEAR DROP CELLS SLIGHT; TOXIC GRANULATION 1+
[2020-03-27] MEDS: ACETAMINOPHEN 325 MG TABLET PO PRN (19:51)
[2020-03-28] MEDS: NORMAL SALINE 1000 ML 1,000 ML IV PRN (05:16)
[2020-03-28] MEDS: PANTOPRAZOLE SODIUM 40 MG TABLET.DR PO SCH (06:55)
[2020-03-28] MEDS: CEFEPIME HCL 2 GM in DEXTROSE 5%-WATER 50 ML IV SCH ×2 (11:02→21:04)
[2020-03-28] MEDS: ENOXAPARIN SODIUM INJ 40 MG/0.4 ML DISP.SYRIN SUBCUT SCH (11:07)
--- NOTE | 2020-03-28 11:45 | PDOC PROGRESS REPORT ---
Subjective Progress Note for:: 03/28/20 Subjective:: Patient denied any abdominal pain, diarrhea, vomiting, or nausea. She reported satisfactory oral intake. No chest pain or difficulty with breathing. No fever or chills. Reason For Visit: ANEMIA,BANDEMIA,FEVER Physical Exam Vital Signs: Temp Pulse Resp BP Pulse Ox 97.6 F 94 23 H 132/64 H 100 03/28/20 08:10 03/28/20 08:10 03/28/20 08:10 03/28/20 08:10 03/28/20 08:10 Intake & Output 03/27/20 03/28/20 03/29/20 06:59 06:59 06:59 Intake Total 2690 3175 Balance 2690 3175 Weight 53.3 kg 55.7 kg Physical Exam: General appearance: PRESENT: no acute distress Head exam: PRESENT: atraumatic, normocephalic Eye exam: PRESENT: conjunctiva pale. ABSENT: scleral icterus Mouth exam: PRESENT: moist Respiratory exam: PRESENT: clear to auscultation izzy Cardiovascular exam: PRESENT: RRR, +S1, +S2. ABSENT: diastolic murmur, rubs, systolic murmur Vascular exam: ABSENT: pallor GI/Abdominal exam: PRESENT: normal bowel sounds, soft. ABSENT: distended, guarding, mass, organomegaly, rebound, tenderness Extremities exam: ABSENT: pedal edema Neurological exam: PRESENT: alert, awake, oriented to person, oriented to place, oriented to time, oriented to situation, CN II-XII grossly intact. ABSENT: motor sensory deficit Psychiatric exam: PRESENT: appropriate affect, normal mood. ABSENT: homicidal ideation, suicidal ideation Skin exam: PRESENT: dry, warm Results Laboratory Results: 03/27/20 16:50 03/27/20 04:50 03/26/20 03/27/20 03:05 16:50 WBC 9.2 RBC 4.64 Hgb 10.0 L D Hct 30.6 L MCV 66 L D MCH 21.5 L MCHC 32.6 RDW 27.1 H Plt Count 211 Seg Neutrophils % Not Reportable Blood Type O POSITIVE Antibody Screen NEGATIVE 03/26/20 03/26/20 01:04 06:30 Troponin I 0.017 0.018 Impressions: Chest X-Ray 03/26/20 00:00 IMPRESSION: No acute abnormality is identified. Acute Abdomen Series 03/26/20 01:24 IMPRESSION: No acute cardiopulmonary process. Moderate gas and stool in the colon copyright 2011 [employer]- All Rights Reserved Abdomen/Pelvis CT 03/26/20 02:59 IMPRESSION: 1. No evidence of acute intra-abdominal or intrapelvic pathology. 2. There is no evidence of bowel obstruction. 3. Very small hiatal hernia. Assessment & Plan - Diagnosis (1) SIRS (systemic inflammatory response syndrome) Is this a current diagnosis for this admission?: Yes (2) Anemia requiring transfusions Is this a current diagnosis for this admission?: Yes (3) Gastroenteritis Is this a current diagnosis for this admission?: Yes (4) Suspected COVID-19 virus infection Is this a current diagnosis for this admission?: Yes (5) Abnormal mammogram of right breast Is this a current diagnosis for this admission?: Yes - Time Time Spent with patient: 25-34 minutes Level of Care: IMCU Medications reviewed and adjusted accordingly: Yes Anticipated discharge: Home, Home with Homehealth Anticipated DC Timeframe: within 72 hours - Inpatient Certification Based on my medical assessment, after consideration of the patient's comorbidities, presenting symptoms, or acuity I expect that the services needed warrant INPATIENT care.: Yes I certify that my determination is in accordance with my understanding of Medicare's requirements for reasonable and necessary INPATIENT services [42 CFR 412.3e].: Yes Medical Necessity: Significant Comorbidiites Make Outpatient Treatment Too Risky, Need Close Monitoring Due to Risk of Patient Decompensation, Need For IV Fluids, Need For Continuous Telemetry Monitoring, Need for IV Antibiotics, Risk of Complication if Not Cared For in Hospital, Risk of Diagnosis Which Will Require Inpatient Eval/Care/Monitoring - Plan Summary Plan Summary: Continue IV antibiotic coverage and follow up on culture findings.
[2020-03-28] MEDS ORDERED: DILTIAZEM HCL/D5W 125 MG/125 ML RTUINJ IV ONE (11:49)
[2020-03-28] MEDS ORDERED: DILTIAZEM HCL INJ 25 MG/5 ML VIAL ONE (11:49)
[2020-03-28] MEDS: DILTIAZEM HCL/D5W 125 MG/125 ML RTUINJ IV PRN (11:58)
[2020-03-28] MEDS ORDERED: DILTIAZEM HCL INJ 25 MG/5 ML VIAL IV ONE (12:00)
[2020-03-28 12:39] LABS: ABSOLUTE EOSINOPHILS # (AUTO) 0.2 10^3/uL (0.0-0.6); ABSOLUTE LYMPHOCYTES (AUTO) 0.5 10^3/uL (0.5-4.7); ABSOLUTE MONOCYTES (AUTO) 0.6 10^3/uL (0.1-1.4); ABSOLUTE NEUT (AUTO) 6.5 10^3/uL (1.7-8.2); BASOPHILS % (AUTO) 0.5 % (0-2); EOSINOPHILS % (AUTO) 2.8 % (0-6); HEMOGLOBIN 10.2 g/dL (12.0-15.5); LYMPHOCYTES % (AUTO) 6.2 % (13-45); MEAN CORPUSCULAR HEMOGLOBIN 21.5 pg (27.0-33.4); MEAN CORPUSCULAR HGB CONC 32.9 g/dL (32.0-36.0); MEAN CORPUSCULAR VOLUME 66 fl (80-97); MONOCYTES % (AUTO) 7.4 % (3-13); PLATELET COUNT 208 10^3/uL (150-450); RED BLOOD COUNT 4.73 10^6/uL (3.72-5.28); RED CELL DISTRIBUTION WIDTH 27.1 % (11.5-14.0); SEGMENTED NEUTROPHILS % (AUTO) 83.1 % (42-78); TOTAL CELLS COUNTED % (AUTO) 100 %; WHITE BLOOD COUNT 7.8 10^3/uL (4.0-10.5)
[2020-03-28 12:44] LABS: ALBUMIN 2.5 g/dL (3.5-5.0); ALKALINE PHOSPHATASE 283 U/L (38-126); ANION GAP 7 (5-19); ASPARTATE AMINO TRANSFERASE 113 U/L (14-36); BILIRUBIN,DIRECT 3.3 mg/dL (0.0-0.4); BILIRUBIN,TOTAL 3.7 mg/dL (0.2-1.3); BLOOD UREA NITROGEN 5 mg/dL (7-20); CALCIUM 7.7 mg/dL (8.4-10.2); CARBON DIOXIDE 18 mmol/L (22-30); CHLORIDE 109 mmol/L (98-107); GLUCOSE 117 mg/dL (75-110); POTASSIUM 3.5 mmol/L (3.6-5.0); TOTAL PROTEIN 5.4 g/dL (6.3-8.2)
[2020-03-28 12:45] LABS: ANISOCYTOSIS 3+; HYPOCHROMASIA 2+; OVALOCYTES 1+; POIKILOCYTOSIS 1+; POLYCHROMASIA SLIGHT
[2020-03-28 12:46] LABS: TARGET CELLS SLIGHT
[2020-03-28 12:48] LABS: PLATELET COMMENT ADEQUATE; TEAR DROP CELLS SLIGHT
[2020-03-28 12:53] LABS: FREE T3 3.15 pg/mL (2.77-5.27); FREE T4 (FREE THYROXINE) 2.12 ng/dL (0.78-2.19)
[2020-03-28] MEDS: APIXABAN 5 MG TABLET PO SCH ×2 (13:01→18:10)
[2020-03-28 13:07] LABS: THYROID STIMULATING HORMONE 1.35 uIU/mL (0.47-4.68)
[2020-03-28] MEDS: ACETAMINOPHEN 325 MG TABLET PO PRN (15:15)
[2020-03-28] MEDS: VANCOMYCIN HCL 1,000 MG in DEXTROSE 5%-WATER 250 ML IV SCH (15:16)
[2020-03-28] MEDS: POTASSIUM CHLORIDE 20 MEQ PACKET PO SCH ×2 (16:40→20:59)
[2020-03-28] MEDS ORDERED: LEVALBUTEROL HCL NEB 1.25 MG/3 ML AMPUL NEB ONE (17:00)
[2020-03-29] MEDS: LEVALBUTEROL HCL NEB 1.25 MG/3 ML AMPUL NEB PRN ×2 (00:31→06:00)
[2020-03-29] MEDS: DILTIAZEM HCL/D5W 125 MG/125 ML RTUINJ IV PRN (03:55)
[2020-03-29] MEDS: PANTOPRAZOLE SODIUM 40 MG TABLET.DR PO SCH (07:10)
--- NOTE | 2020-03-29 08:47 | EKG REPORT ---
SEVERITY:- ABNORMAL ECG - ATRIAL FIBRILLATION WITH RAPID V-RATE NONSPECIFIC INTRAVENTRICULAR CONDUCTION DELAY LOW VOLTAGE IN FRONTAL LEADS : Confirmed by: Kirill Hughes MD 29-Mar-2020 08:47:00
[2020-03-29] MEDS: APIXABAN 5 MG TABLET PO SCH ×2 (11:15→19:54)
[2020-03-29] MEDS: CEFEPIME HCL 2 GM in DEXTROSE 5%-WATER 50 ML IV SCH ×2 (11:16→21:27)
[2020-03-29] MEDS: VANCOMYCIN HCL 1,000 MG in DEXTROSE 5%-WATER 250 ML IV SCH (12:56)
[2020-03-29 14:49] LABS: PATH REVIEW PATHOLOGIST REVIEWED
[2020-03-29] MEDS ORDERED: DEXTROSE 5%-WATER 500 ML with AMIODARONE HCL 900 MG IV PRN ×2 (19:15)
[2020-03-29] MEDS ORDERED: AMIODARONE HCL 150 MG in DEXTROSE 5%-WATER 100 ML IV ONE (19:15)
--- NOTE | 2020-03-29 19:45 | PDOC PROGRESS REPORT ---
Subjective Progress Note for:: 03/29/20 Subjective:: Patient was seen by the bedside, she is noncompliant, she has not been seen in the office this year for follow-up evaluation, she came to the emergency room on 03/26/2020, For evaluation of nausea vomiting diarrhea, she was found to have grossly abnormal lab data, she has an deficiency anemia, the ferritin was elevated partly because there was component of inflammation ongoing, she had leukocytosis, hyponatremia presently empirically on IV antibiotic. She also ward ve A. fib with rapid ventricular response. When I saw her today in the hospital she was wheezing, the BNP was elevated, she had mammogram done [place] 05[place]05/[place], it was incomplete mammogram she was supposed to follow-up she never did. She has iron deficiency anemia, she has no history of colonoscopy, though she was referred outpatient she never went Reason For Visit: ANEMIA,BANDEMIA,FEVER Physical Exam Vital Signs: Temp Pulse Resp BP Pulse Ox 98.0 F 76 16 113/71 92 03/29/20 16:03 03/29/20 16:03 03/29/20 16:03 03/29/20 16:03 03/29/20 16:03 Intake & Output 03/28/20 03/29/20 03/30/20 06:59 06:59 06:59 Intake Total 3175 2807 910 Output Total 1100 Balance 3175 1707 910 Weight 55.7 kg 58 kg General appearance: PRESENT: no acute distress Eye exam: PRESENT: PERRLA Respiratory exam: PRESENT: rhonchi, wheezes Cardiovascular exam: PRESENT: +S1, +S2 GI/Abdominal exam: PRESENT: soft Neurological exam: PRESENT: alert Results Laboratory Results: 03/28/20 12:05 03/28/20 12:05 03/26/20 03/26/20 03/29/20 01:04 06:30 18:24 Troponin I 0.017 0.018 NT-Pro-B Natriuret Pep [id number] H Impressions: Chest X-Ray 03/26/20 00:00 IMPRESSION: No acute abnormality is identified. Acute Abdomen Series 03/26/20 01:24 IMPRESSION: No acute cardiopulmonary process. Moderate gas and stool in the colon copyright 2010 [employer]- All Rights Reserved Abdomen/Pelvis CT 03/26/20 02:59 IMPRESSION: 1. No evidence of acute intra-abdominal or intrapelvic pathology. 2. There is no evidence of bowel obstruction. 3. Very small hiatal hernia. Assessment & Plan - Diagnosis (1) Iron deficiency anemia Qualifiers: Iron deficiency anemia type: chronic blood loss Qualified Code(s): D50.0 - Iron deficiency anemia secondary to blood loss (chronic) Is this a current diagnosis for this admission?: Yes Plan: She has iron deficiency anemia, no history of colonoscopy, GI consult will be requested (2) Atrial fibrillation with rapid ventricular response Is this a current diagnosis for this admission?: Yes Plan: She has atrial fibrillation with rapid ventricular response, she has no history of A. fib, presently on Cardizem infusion, not rate controlled, pressure on the low side, DC Cardizem infusion, start amiodarone. Order 2D echo (3) Hyponatremia Is this a current diagnosis for this admission?: Yes Plan: This is most likely from loss of volume due to diarrhea, improved with hydration (4) Wheezing Is this a current diagnosis for this admission?: Yes Plan: The differential diagnosis include lung disease, heart disease, PE, Request CT chest with contrast (5) Fever Qualifiers: Fever type: unspecified Qualified Code(s): R50.9 - Fever, unspecified Is this a current diagnosis for this admission?: Yes Plan: The etiology of the fever is not clear - Time Time Spent with patient: 35 or more minutes Level of Care: IMCU Medications reviewed and adjusted accordingly: Yes Anticipated discharge: Home Anticipated DC Timeframe: within 72 hours
[2020-03-29] MEDS ORDERED: NORMAL SALINE 1000 ML 1,000 ML IV PRN (19:46)
[2020-03-30] MEDS: PANTOPRAZOLE SODIUM 40 MG TABLET.DR PO SCH (06:54)
--- NOTE | 2020-03-30 07:55 | Progress Note ---
Provider Note Provider Note: received consult on this patient does require a GI work up to include both and EGD and colonoscopy due to iron deficiency anemia Covid 19 negative will get patient rate controlled first and stabilized from the cardiac standpoint prior to undergoing procedure will follow along Full consult to follow
--- NOTE | 2020-03-30 10:03 | RADIOLOGY REPORT (SQ) ---
EXAM DESCRIPTION: CT CHEST WITH IMAGES COMPLETED DATE/TIME: 03/30/2020 9:31 am REASON FOR STUDY: wheezing COMPARISON: CT of the abdomen and pelvis with contrast from 03/26/2020. TECHNIQUE: CT scan of the chest performed using helical scanning technique with dynamic intravenous contrast injection. Images reviewed with lung, soft tissue and bone windows. Reconstructed coronal and sagittal MPR and MIP images reviewed. All images stored on PACS. All CT scanners at this facility use dose modulation, iterative reconstruction, and/or weight based d osing when appropriate to reduce radiation dose to as low as reasonably achievable (ALARA). [facility]: Dose Right [facility]: CareDose [facility]: Dose Right [facility]: Teradose 4D [facility]: Spondo CONTRAST TYPE AND DOSE: Contrast/concentration: Isovue 350.00 mmol/ml; Total Contrast Delivered: 80. 0 ml; Total Saline Delivered: 51.0 ml RENAL FUNCTION: Creatinine 0.54 milligrams/deciliter. RADIATION DOSE: CT Rad equipment meets quality standard of care and radiation dose reduction techniq ues were employed. CTDIvol: 6.8 mGy. DLP: 245 mGy-cm. LIMITATIONS: None. FINDINGS: LUNGS AND PLEURA: The trachea and main bronchi are patent. There are small bilateral pleu ral effusions. The nodular ground-glass opacities in the right lower lobe (image 49 of series 4 and 55 of series 4) are nonspecific and could represent an infectious or inflammatory process. There is no bronchiectasis or segmental mucus plugging. The linear opacities in the right middle lobe associa linda with mild volume loss are consistent with atelectasis. There is no lobar consolidation or pneumo thorax. HILAR AND MEDIASTINAL STRUCTURES: No adenopathy or mass. HEART AND VASCULAR STRUCTURES: Variant 4 vessel arch with a direct origin of the left vertebral arter y from the arch. There is no thoracic aortic dissection or aneurysm. The main pulmonary artery viv ures 3.2 cm in diameter - correlate for pulmonary hypertension. There is mild cardiomegaly. There i s no pericardial effusion. HARDWARE: None in the chest. UPPER ABDOMEN: Hepatic steatosis. THYROID AND OTHER SOFT TISSUES: The thyroid gland is heterogeneous. There is no adenopathy. BONES: Chronic fractures of several lateral right-sided ribs. OTHER: No other finding. IMPRESSION: 1. Mild cardiomegaly and bilateral pleural effusions without evidence of pulmonary edema . 2. Nodular ground-glass opacities in the right lower lobe (image 49 of series 4 and 55 of series 4) t hat are nonspecific and could represent an infectious or inflammatory process. TECHNICAL DOCUMENTATION: JOB ID: [id number] Quality ID # [id number]: Final reports with documentation of one or more dose reduction techniques (e.g., Au tomated exposure control, adjustment of the mA and/or kV according to patient size, use of iterative reconstruction technique) 2010 [employer]- All Rights Reserved Reading location - IP/workstation name: [email or web address]
[2020-03-30] MEDS: APIXABAN 5 MG TABLET PO SCH ×2 (10:04→17:18)
[2020-03-30] MEDS: CEFEPIME HCL 2 GM in DEXTROSE 5%-WATER 50 ML IV SCH ×2 (10:04→22:03)
--- NOTE | 2020-03-30 10:11 | PDOC CONSULTATION ---
Consultation Consult Date: 03/30/20 Provider Consulted: TRENTON ALCANTARA Consult reason:: iron deficiency anemia. patient is A fib, on Eliquis, needing rate control History of Present Illness Admission Date/PCP: 03/26/20 05:58 History of Present Illness: KIEL ADAMES is a 69 year old female patient is admitted and I am asked to see patient for work up of iron deficiency anemia patient had been advised to see outpatient GI in the past but never kept appts admitted in A fib, rate control in progress while patient is mobile, she gets very tachycardic and has SOB when she has to move is on Eliquis needs work up for iron deficiency anemia to rule out possible GIB however, will likely need stabalization of cardiac issues first please get cardiology clearance also issue with having to stop her anticoagulant will need to be addressed while Hgb is on the low side no overt bleeding has been noted currently not a candidate to get prepped yet Past Medical History Psychiatric Medical History: Reports: Depression Social History Lives with: Alone Smoking Status: Never Smoker Electronic Cigarette use?: No Frequency of Alcohol Use: Rare Hx Recreational Drug Use: No Drugs: None Hx Prescription Drug Abuse: No - Advance Directive Resuscitation Status: Full Code Family History Family History: Reviewed & Not Pertinent Parental Family History Reviewed: Yes Children Family History Reviewed: Unknown Sibling(s) Family History Reviewed.: Unknown Medication/Allergy Home Medications: Esomeprazole Magnesium [Nexium] 20 mg PO DAILY 03/26/20 Allergies/Adverse Reactions: No Known Allergies Allergy (Unverified 02/19/12 03:33) Review of Systems Constitutional: ABSENT: fever(s), headache(s), weakness Eyes: ABSENT: visual disturbances Ears: ABSENT: hearing changes Nose, Mouth, and Throat: ABSENT: mouth pain, sore throat Cardiovascular: PRESENT: orthropnea Respiratory: PRESENT: dyspnea. ABSENT: hemoptysis Gastrointestinal: ABSENT: diarrhea, dysphagia, melena Genitourinary: ABSENT: dysuria, hematuria Musculoskeletal: ABSENT: deformity Integumentary: ABSENT: pruritus Neurological: ABSENT: syncope, tingling, tremor(s), vertigo Endocrine: ABSENT: polydipsia, polyphagia, polyuria Hematologic/Lymphatic: ABSENT: easy bruising Physical Exam Vital Signs: Temp Pulse Resp BP Pulse Ox 97.7 F 97 18 106/75 94 03/30/20 09:57 03/30/20 07:35 03/30/20 07:35 03/30/20 07:35 03/30/20 07:35 Intake & Output 03/29/20 03/30/20 03/31/20 06:59 06:59 06:59 Intake Total 2807 1797 Output Total 1100 Balance 1707 1797 Weight 58 kg 57.1 kg General appearance: PRESENT: well-developed, well-nourished Head exam: PRESENT: atraumatic, normocephalic Eye exam: PRESENT: EOMI, PERRLA. ABSENT: scleral icterus Mouth exam: PRESENT: moist, neck supple Throat exam: ABSENT: tonsillar exudate Neck exam: ABSENT: meningismus, thyromegaly, tracheostomy Respiratory exam: PRESENT: tachypnea. ABSENT: chest wall tenderness, rales Cardiovascular exam: PRESENT: irregular rhythm GI/Abdominal exam: PRESENT: soft. ABSENT: rebound, rigid, tenderness Musculoskeletal exam: PRESENT: full ROM Neurological exam: PRESENT: oriented to time, oriented to situation, CN II-XII grossly intact Focused psych exam: ABSENT: restlessness Skin exam: ABSENT: mottled, pallor, urticaria, vesicles Results Laboratory Results: 03/28/20 12:05 03/28/20 12:05 03/28/20 12:05 Thyroxine (T4) 6.5 03/26/20 03/26/20 03/29/20 01:04 06:30 18:24 Troponin I 0.017 0.018 NT-Pro-B Natriuret Pep [id number] H Impressions: Chest X-Ray 03/26/20 00:00 IMPRESSION: No acute abnormality is identified. Acute Abdomen Series 03/26/20 01:24 IMPRESSION: No acute cardiopulmonary process. Moderate gas and stool in the colon copyright 2011 [employer]- All Rights Reserved Abdomen/Pelvis CT 03/26/20 02:59 IMPRESSION: 1. No evidence of acute intra-abdominal or intrapelvic pathology. 2. There is no evidence of bowel obstruction. 3. Very small hiatal hernia. Assessment & Plan - Diagnosis (1) Iron deficiency anemia Qualifiers: Iron deficiency anemia type: chronic blood loss Qualified Code(s): D50.0 - Iron deficiency anemia secondary to blood loss (chronic) Is this a current diagnosis for this admission?: Yes Plan: will need GI work up at some point given lack of outpatient compliance however at this point, will need stabalization of cardiac issues prior to undetaking since no overt active bleeding noted please get cardiology clearance issue of stopping Eliquis will put the patient at high risk so that will be a discussion point as well will follow up on these issues prior to prepping the patient likely will have to defer her GI work up for several days as needed spoke with RN - Time Time Spent: 50 to 70 Minutes
[2020-03-30 10:27] LABS: VANCOMYCIN,TROUGH 5.8 ug/mL (5.0-20.0)
[2020-03-30] MEDS: LORAZEPAM 0.5 MG TABLET PO SCH ×2 (15:42→22:03)
[2020-03-30] MEDS: FOLIC ACID 1 MG TABLET PO SCH (15:42)
[2020-03-30] MEDS: THIAMINE HCL 100 MG TABLET PO SCH (15:42)
[2020-03-30] MEDS: METOPROLOL SUCCINATE 50 MG TAB.SR.24H PO SCH (15:43)
[2020-03-30 16:03] LABS: INTERNATIONAL RATION (INR) 1.39; PROTHROMBIN TIME 17.3 SEC (11.4-15.4)
[2020-03-30 16:04] LABS: PARTIAL THROMBOPLASTIN TIME 47.1 SEC (23.5-35.8)
--- NOTE | 2020-03-30 16:20 | PDOC PROGRESS REPORT ---
Subjective Progress Note for:: 03/30/20 Subjective:: Patient seen by the bedside, the liver enzymes elevation is consistent with alcohol liver disease, I asked patient about alcohol use, she admitted to drinking heavily, presently trying to reduce alcohol consumption Reason For Visit: ANEMIA,BANDEMIA,FEVER Physical Exam Vital Signs: Temp Pulse Resp BP Pulse Ox 97.9 F 90 18 127/76 H 100 03/30/20 11:04 03/30/20 15:00 03/30/20 11:04 03/30/20 15:00 03/30/20 11:04 Intake & Output 03/29/20 03/30/20 03/31/20 06:59 06:59 06:59 Intake Total 2807 1797 168 Output Total 1100 Balance 1707 1797 168 Weight 58 kg 57.1 kg 57.1 kg General appearance: PRESENT: no acute distress Eye exam: PRESENT: PERRLA Respiratory exam: PRESENT: clear to auscultation izzy Cardiovascular exam: PRESENT: +S1, +S2 GI/Abdominal exam: PRESENT: soft Neurological exam: PRESENT: alert, CN II-XII grossly intact Results Laboratory Results: 03/28/20 12:05 03/28/20 12:05 03/28/20 12:05 Thyroxine (T4) 6.5 03/26/20 03/26/20 03/29/20 01:04 06:30 18:24 Troponin I 0.017 0.018 NT-Pro-B Natriuret Pep [id number] H Impressions: Chest X-Ray 03/26/20 00:00 IMPRESSION: No acute abnormality is identified. Acute Abdomen Series 03/26/20 01:24 IMPRESSION: No acute cardiopulmonary process. Moderate gas and stool in the colon copyright 2011 [employer]- All Rights Reserved Abdomen/Pelvis CT 03/26/20 02:59 IMPRESSION: 1. No evidence of acute intra-abdominal or intrapelvic pathology. 2. There is no evidence of bowel obstruction. 3. Very small hiatal hernia. Chest CT 03/30/20 09:15 IMPRESSION: 1. Mild cardiomegaly and bilateral pleural effusions without evidence of pulmonary edema. 2. Nodular ground-glass opacities in the right lower lobe (image 49 of series 4 and 55 of series 4) that are nonspecific and could represent an infectious or inflammatory process. Assessment & Plan - Diagnosis (1) Iron deficiency anemia Qualifiers: Iron deficiency anemia type: chronic blood loss Qualified Code(s): D50.0 - Iron deficiency anemia secondary to blood loss (chronic) Is this a current diagnosis for this admission?: Yes Plan: Patient was seen by GI she will need to have colonoscopy before discharge (2) Atrial fibrillation with rapid ventricular response Is this a current diagnosis for this admission?: Yes Plan: Presently rate controlled, discontinued amiodarone start metoprolol succinate (3) Hyponatremia Is this a current diagnosis for this admission?: Yes (4) Fever Qualifiers: Fever type: unspecified Qualified Code(s): R50.9 - Fever, unspecified Is this a current diagnosis for this admission?: Yes (5) Cardiomyopathy, alcoholic Is this a current diagnosis for this admission?: Yes Plan: She has cardiomyopathy, history of alcohol abuse, heavy alcohol use, transthoracic cardiogram was done, the estimated ejection fraction 44%, consistent with cardiomyopathy most likely alcohol-related (6) Alcoholic liver disease Is this a current diagnosis for this admission?: Yes Plan: The liver enzymes consistent with alcohol liver disease, on direct questioning she admitted to heavy alcohol consumption. Start lorazepam preemptively to prevent alcohol withdrawal syndrome. Start thiamine and folic acid - Time Time Spent with patient: 35 or more minutes Level of Care: IMCU Medications reviewed and adjusted accordingly: Yes Anticipated discharge: Home Anticipated DC Timeframe: within 72 hours
--- NOTE | 2020-03-30 22:17 | XCELERA REPORT ---
[address] [address] Transthoracic Echocardiogram Report Name: KIEL ADAMES Age: 69 yrs Gender: Female : 1950 Patient Status: [facility] Date: 03/29/2020 08:19 PM Height: 57 in Weight: 127 lb BSA: 1.5 m2 Procedure: A two-dimensional transthoracic echocardiogram with color flow and Doppler was performed. Study Quality: Poor. Poor endocardial visualisation , hence very difficult to assess wall motion and LVEF accurately. Reason For Study: HTN,A-FIB History: HTN,A-FIB. Ordering Physician: CASSANDRA AYALA Performed By: Luz Drummond Interpretation Summary The left ventricle is normal in size. LVEF is probaly moderately reduced ar 35%. Mild LV diastolic dysfunction by tissue doppers.In a setting of moderate global hypokinesis ther eis severe hypokinesis of the whole IV septum. There is no thrombus. Probably no ASD,VSD,or PFO seen. The right ventricle is mildly dilated. The right atrium is mildly dilated. The left atrium is mildly dilated. There is no vegetation seen on the mitral valve. There is no mitral valve stenosis. There is a moderate to severe amount of mitral regurgitation There is no aortic valvular vegetation. There is no aortic valve stenosis There is no LVOT obstruction. There is a mild amount of aortic regurgitation There is no tricuspid stenosis. There is a moderate to severe amount of tricuspid regurgitation There is moderate pulmonary hypertension by echo RVSP is 53 to 58 mm of Hg , with RA mean of 5 to 10. There is no pulmonic valvular stenosis. There is a trace amount of pulmonic regurgitation The aortic root is not well visualized but is probably normal size. The inferior vena cava appeared normal and decreased > 50% with respiration (RAP 5-10 mmHg) There is no pericardial effusion. MMode/2D Measurements & Calculations RVDd: 3.0 cm LVIDd: 4.5 cm FS: 21.2 % Ao root diam: 2.7 cm IVSd: 0.93 cm LVIDs: 3.6 cm EDV(Teich): 92.7 ml Ao root area: 5.7 cm2 LVPWd: 0.90 cm ESV(Teich): 52.7 ml LA dimension: 3.8 cm EF(Teich): 43.2 % Doppler Measurements & Calculations MV E max lucy: MV P1/2t max lucy: Ao V2 max: AI max lucy: 104.9 cm/sec 108.6 cm/sec 130.3 cm/sec 364.9 cm/sec MV A max lucy: MV P1/2t: 79.4 msec Ao max PG: AI max P.2 cm/sec MVA(P1/2t): 2.8 cm2 6.8 mmHg 53.2 mmHg MV E/A: 1.1 MV dec slope: AI dec slope: 304.8 cm/sec2 400.8 cm/sec2 AI P1/2t: MV dec time: 350.6 msec 0.18 sec LV V1 max PG: PA V2 max: PI end-d lucy: TR max lucy: 2.4 mmHg 99.1 cm/sec 133.0 cm/sec 347.5 cm/sec LV V1 max: PA max P.9 mmHg TR max P.5 cm/sec 48.3 mmHg AV P1/2t-pr_phl: MV P1/2t-pr_phl: 350.6 msec 79.4 msec Left Ventricle The left ventricle is normal in size. There is normal left ventricular wall thickness. LVEF is probaly moderately reduced ar 35%. Mild LV diastolic dysfunction by tissue doppers.In a setting of moderate global hypokinesis ther eis severe hypokinesis of the whole IV septum. There is no thrombus. Probably no ASD,VSD,or PFO seen. Right Ventricle The right ventricle is mildly dilated. Atria The right atrium is mildly dilated. The left atrium is mildly dilated. Mitral Valve There is no evidence of mitral valve prolapse. There is no vegetation seen on the mitral valve. There is no mitral valve stenosis. There is a moderate to severe amount of mitral regurgitation. Aortic Valve There is no aortic valvular vegetation. There is no aortic valve stenosis. There is no LVOT obstruction. There is a mild amount of aortic regurgitation. Tricuspid Valve There is no tricuspid stenosis. There is a moderate to severe amount of tricuspid regurgitation. There is moderate pulmonary hypertension by echo. RVSP is 53 to 58 mm of Hg , with RA mean of 5 to 10. Pulmonic Valve There is no pulmonic valvular stenosis. There is a trace amount of pulmonic regurgitation. Great Vessels The aortic root is not well visualized but is probably normal size. The inferior vena cava appeared normal and decreased > 50% with respiration (RAP 5-10 mmHg). Effusions There is no pericardial effusion. : CASSANDRA AYALA Lakshmi
[2020-03-31] MEDS: PANTOPRAZOLE SODIUM 40 MG TABLET.DR PO SCH (06:19)
[2020-03-31] MEDS: LORAZEPAM 0.5 MG TABLET PO SCH ×3 (06:19→22:25)
[2020-03-31] MEDS: SACUBITRIL/VALSARTAN 24 MG/26 MG TABLET PO SCH ×2 (12:06→17:28)
[2020-03-31] MEDS: APIXABAN 5 MG TABLET PO SCH ×2 (12:06→17:28)
[2020-03-31] MEDS: THIAMINE HCL 100 MG TABLET PO SCH (12:07)
[2020-03-31] MEDS: FOLIC ACID 1 MG TABLET PO SCH (12:07)
[2020-03-31] MEDS: METOPROLOL SUCCINATE 50 MG TAB.SR.24H PO SCH (12:08)
--- NOTE | 2020-03-31 16:50 | PDOC CONSULTATION ---
Consultation-Blank Consultation: CARDIOLOGY CONSULTATION by Dr. Marianna Tejada on 03/31/2020. Patient seen at 5 PM. 60 minutes spent on this patient more than 50% of time spent direct patient care. REASON FOR CONSULTATION: Patient with atrial fibrillation and cardiomyopathy. CONSULT REQUESTING PHYSICIAN: Dr. Blank. HISTORY OF PRESENT ILLNESS: I am not sure if the patient is reliable historian. Review the patient's records the patient is admitted with nausea and vomiting and fever and was found to be also anemic with a hemoglobin of 6.6. She denies any abdominal pain or tarry stools. She was also diagnosed as having systemic inflammatory response syndrome and treated with antibiotics and given blood transfusions. Subsequently echocardiogram done showed LV ejection fraction to be reduced at 35%. With wall motion abnormalities. There is moderate to severe mitral regurgitation with also moderate to severe tricuspid regurgitation with moderate pulmonary hypertension. The patient also was seen to be in atrial fibrillation and the patient had been started on Eliquis. She was also on IV amiodarone and at present is in sinus rhythm. Not on IV amiodarone anymore. The patient subsequently now is present in sinus rhythm. She denies chest pain discomfort there is no shortness of breath. There is no PND orthopnea. She has been seen by GI. And the plan is to do endoscopy with the patient's status is stable. The patient does not smoke. She has a history of chronic alcohol excessive usage. She has not had any delirium tremens. Past Medical History: Denies coronary artery disease [place] or angina. No prior history of congestive heart failure or cardiac arrhythmia. No history of hypertension or diabetes mellitus. No history of TIA CVA. No history of asthma COPD or sleep apnea. Psychiatric Medical History: Reports: Depression Social History Lives with: Alone Smoking Status: Never Smoker Electronic Cigarette use?: No Frequency of Alcohol Use: Rare Hx Recreational Drug Use: No Drugs: None Hx Prescription Drug Abuse: No - Advance Directive Resuscitation Status: Full Code. Her is her surrogate healthcare decision maker Family History Family History: Reviewed & Not Pertinent Parental Family History Reviewed: Yes Children Family History Reviewed: Yes Sibling(s) Family History Reviewed.: Yes Medication/Allergy Home Medications: Esomeprazole Magnesium [Nexium] 20 mg PO DAILY 03/26/20 Allergies/Adverse Reactions: No Known Allergies Allergy (Unverified 02/19/12 03:33) Current Medications Generic Name Dose Route Start Last Admin Trade Name Paco PRN Reason Stop Dose Admin Acetaminophen 650 mg 03/26/20 21:11 03/28/20 15:15 Tylenol 325 Mg Tablet PO 04/25/20 21:10 650 mg Q4HP PRN Administration FEVER >101 Apixaban 5 mg 03/28/20 12:00 03/31/20 17:28 Eliquis 5 Mg Tablet PO 04/27/20 11:59 5 mg BID SIMBA Administration Folic Acid 1 mg 03/30/20 15:15 03/31/20 12:07 Folvite 1 Mg Tablet PO 04/29/20 15:14 1 mg DAILY SIMBA Administration Levalbuterol HCl 1.25 mg 03/28/20 23:03 03/31/20 17:40 Xopenex Neb 1.25 Mg/3 Ml Ampul NEB 04/27/20 23:02 1.25 mg RTQ4HP PRN Administration WHEEZING Lorazepam 0.25 mg 03/30/20 15:15 03/31/20 15:06 Ativan 0.5 Mg Tablet PO 04/06/20 15:14 0.25 mg Q8 SIMBA Administration Metoprolol Succinate 100 mg 03/30/20 15:15 03/31/20 12:08 Toprol Xl 50 Mg Tab.Sr PO 04/29/20 15:14 Not Given DAILY SIMBA Ondansetron HCl 4 mg 03/26/20 21:08 03/26/20 21:00 Zofran Inj/Pf 4 Mg/2 Ml Sdv IV 04/25/20 21:07 4 mg Q4HP PRN Administration FOR NAUSEA/VOMITING Pantoprazole Sodium 40 mg 03/27/20 06:00 03/31/20 06:[address] Tablet PO 04/26/20 05:59 40 mg Q6AM SIMBA Administration Sacubitril/Valsartan 1 tab 03/31/20 10:00 03/31/20 17:28 Entresto 24 Mg/26 Mg Tablet PO 04/30/20 09:59 1 tab BID SIMBA Administration Thiamine HCl 100 mg 03/30/20 15:15 03/31/20 12:07 Thiamine 100 Mg Tablet PO 04/29/20 15:14 100 mg DAILY SIMBA Administration Discontinued Medications Generic Name Dose Route Start Last Admin Trade Name Paco PRN Reason Stop Dose Admin Acetaminophen 975 mg 03/26/20 04:47 03/26/20 04:49 Tylenol 325 Mg Tablet PO 03/26/20 04:48 975 mg NOW ONE Administration Acetaminophen Confirm 03/26/20 04:47 03/26/20 04:55 Tylenol 325 Mg Tablet Administered 03/26/20 04:48 Not Given Dose 325 mg .ROUTE .STK-MED ONE Diltiazem HCl 10 mg 03/28/20 12:00 03/28/20 11:54 Cardizem Inj 25 Mg/5 Ml Vial IV 03/28/20 12:01 10 mg NOW ONE Administration Diltiazem HCl Confirm 03/28/20 11:49 03/28/20 11:54 Cardizem Inj 25 Mg/5 Ml Vial Administered 03/28/20 11:50 Not Given Dose 25 mg .ROUTE .STK-MED ONE Enoxaparin Sodium 40 mg 03/27/20 10:00 03/28/20 11:07 Lovenox Inj 40 Mg/0.4 Ml Disp.Syrin SUBCUT 04/26/20 09:59 40 mg DAILY SIMBA Administration Sodium Chloride 250 mls @ 30 mls/hr 03/26/20 03:06 Nacl 0.9% 250 Ml Iv Soln IV 03/27/20 03:05 .DURING TRANSFUSION PRN THIS MED IS NOT "PRN" Sodium Chloride 250 mls @ 0 mls/hr 03/26/20 03:06 Nacl 0.9% 250 Ml Iv Soln IV 03/27/20 03:05 CONTINUOUS PRN AFTER EACH UNIT As Directed Cefepime HCl 2 gm in 50 mls @ 100 mls/hr 03/26/20 04:48 03/26/20 08:53 Maxipime Rtu 2 Gm-D5w 50 Ml Premix Bag IV 03/26/20 05:17 Not Given NOW ONE Vancomycin HCl 1,000 mg/ 250 mls @ 166.667 mls/hr 03/26/20 09:30 03/26/20 11:34 Dextrose IV 03/26/20 10:59 Infused NOW ONE Infusion Cefepime HCl 2 gm in 50 mls @ 100 mls/hr 03/26/20 11:30 Maxipime Rtu 2 Gm-D5w 50 Ml Premix Bag IV 03/26/20 11:59 NOW ONE Cefepime HCl 2 gm/ Dextrose 50 mls @ 100 mls/hr 03/26/20 11:30 03/26/20 14:50 IV 03/26/20 11:59 100 mls/hr NOW ONE Administration Sodium Chloride 500 mls @ 0 mls/hr 03/26/20 09:45 03/26/20 13:00 Nacl 0.9% 500 Ml Iv Soln IV 03/26/20 09:46 Infused BOLUS ONE Infusion Wide Open Sodium Chloride 1,000 mls @ 100 mls/hr 03/26/20 09:43 03/28/20 11:20 Nacl 0.9% 1000 Ml Iv Soln IV 04/25/20 09:42 0 mls/hr CONTINUOUS PRN Infusion THIS MED IS NOT "PRN" Cefepime HCl 2 gm in 50 mls @ 100 mls/hr 03/26/20 22:00 03/26/20 23:43 Maxipime Rtu 2 Gm-D5w 50 Ml Premix Bag IV 04/02/20 21:59 Infused Q12 SIMBA Infusion Cefepime HCl Confirm 03/26/20 22:27 03/26/20 22:53 Maxipime Rtu 2 Gm-D5w 50 Ml Premix Bag Administered 03/26/20 22:28 Not Given Dose 2 gm in 50 mls @ ud IV .STK-MED ONE Potassium Chloride/Water 20 meq in 50 mls @ 25 mls/hr 03/27/20 07:00 03/27/20 13:25 Potassium Chloride Abilio 20 Meq/50 Ml IV 03/27/20 12:59 Infused Q2H SIMBA Infusion Cefepime HCl 2 gm/ Dextrose 50 mls @ 100 mls/hr 03/27/20 10:00 03/30/20 22:03 IV 04/03/20 09:59 100 mls/hr Q12 SIMBA Administration Sodium Chloride 250 mls @ 30 mls/hr 03/27/20 10:23 Nacl 0.9% 250 Ml Iv Soln IV 03/28/20 10:22 .DURING TRANSFUSION PRN THIS MED IS NOT "PRN" Sodium Chloride 250 mls @ 0 mls/hr 03/27/20 10:23 Nacl 0.9% 250 Ml Iv Soln IV 03/28/20 10:22 CONTINUOUS PRN AFTER EACH UNIT As Directed Vancomycin HCl 1,000 mg/ 250 mls @ 166.667 mls/hr 03/28/20 15:00 03/29/20 14:26 Dextrose IV 04/04/20 14:59 Infused DAILY SIMBA Infusion Diltiazem HCl 125 mg in 125 mls @ 0 mls/hr 03/28/20 11:44 03/29/20 19:15 Cardizem Rtu Inj 125 Mg-D5w 125 Ml Premix IV 04/27/20 11:43 0 mls/hr CONTINUOUS PRN 0 mls/hr THIS MED IS NOT "PRN" Titration Protocol Titrate Diltiazem HCl Confirm 03/28/20 11:49 03/28/20 11:55 Cardizem Rtu Inj 125 Mg-D5w 125 Ml Premix Administered 03/28/20 11:50 Not Given Dose 125 mg in 125 mls @ ud IV .STK-MED ONE Amiodarone HCl 150 mg/ 100 mls @ 600 mls/hr 03/29/20 19:15 03/29/20 21:05 Dextrose IV 03/29/20 19:24 600 mls/hr NOW ONE Administration Protocol Amiodarone HCl 900 mg/ 500 mls @ 0 mls/hr 03/29/20 19:15 03/30/20 18:55 Dextrose IV 04/01/20 19:14 Infused CONTINUOUS PRN Titration THIS MED IS NOT "PRN" Protocol Per Protocol Sodium Chloride 1,000 mls @ 30 mls/hr 03/29/20 19:46 03/29/20 21:06 Nacl 0.9% 1000 Ml Iv Soln IV 04/25/20 09:42 30 mls/hr CONTINUOUS PRN Administration THIS MED IS NOT "PRN" Ibuprofen 400 mg 03/26/20 05:42 03/26/20 05:45 Motrin 400 Mg Tablet PO 03/26/20 05:43 400 mg NOW ONE Administration Levalbuterol HCl 1.25 mg 03/28/20 17:00 03/28/20 16:55 Xopenex Neb 1.25 Mg/3 Ml Ampul NEB 03/28/20 17:01 1.25 mg RTNOW ONE Administration Ondansetron HCl Confirm 03/26/20 20:47 03/26/20 22:53 Zofran Inj/Pf 4 Mg/2 Ml Sdv Administered 03/26/20 20:48 Not Given Dose 4 mg .ROUTE .STK-MED ONE Potassium Chloride 40 meq 03/28/20 16:00 03/28/20 20:59 Potassium Chloride 20 Meq Packet PO 03/28/20 20:01 40 meq Q4A SIMBA Administration Vancomycin HCl 1,000 mg 03/26/20 05:51 03/26/20 08:53 Vancocin Inj 1000 Mg Vial IV 03/26/20 05:52 Not Given NOW ONE Review of Systems Constitutional: ABSENT: chills, fever(s), headache(s), weight gain, weight loss Eyes: ABSENT: visual disturbances Ears: ABSENT: hearing changes Cardiovascular: ABSENT: chest pain, dyspnea on exertion, edema, orthropnea, palpitations Respiratory: ABSENT: cough, hemoptysis Gastrointestinal: PRESENT: diarrhea, nausea, vomiting. ABSENT: abdominal pain, constipation, hematemesis, hematochezia Genitourinary: ABSENT: dysuria, hematuria Musculoskeletal: ABSENT: joint swelling Integumentary: ABSENT: rash, wounds Neurological: ABSENT: abnormal gait, abnormal speech, confusion, dizziness, focal weakness, syncope Psychiatric: ABSENT: anxiety, depression, homidical ideation, suicidal ideation Endocrine: ABSENT: cold intolerance, heat intolerance, menstrual abnormalities, polydipsia, polyuria Hematologic/Lymphatic: ABSENT: easy bleeding, easy bruising, lymphadenopathy PHYSICAL EXAMINATION: The patient is well-built. At present no acute distress. Selected Entries 03/31/20 16:37 Temperature 98.0 F Temperature Axillary Source Pulse Rate 73 Respiratory 18 Rate Blood Pressure 133/63 H Blood Pressure 86 Mean BP Location Left Arm BP Position Sitting Oxygen Flow 1.50 Rate Oxygen Delivery Room Air Method HEAD:: Is atraumatic normocephalic EYES: Pupils equal round regular reactive light accommodation. Extraocular movements are normal. There is no conjunctival pallor. There is no scleral icterus. EARS: Tympanic membranes are intact. External auditory canals canals are clear. NOSE: There is no deviated nasal septum. There is no inflammation of the nasal mucous membrane. NOSE: There is no deviated nasal septum. There is no inflammation of the nasal mucous membrane. MOUTH: Mucous membranes of the mouth are moist. Tongue is moist. THROAT: There is no redness of the oropharynx. There is no exudates. SKIN: There is no skin rashes. There is no petechia or ecchymosis. There is no skin lesions. NECK: Supple. There is no JVD. Carotids are equal there is no bruit there is no lymphadenopathy. There is no goiter. LUNGS: Trachea central lungs are clear to auscultation percussion. There is no chest wall tenderness. Heart HEART: S1-S2 is heard. There is no S3 gallop. There is no S4 gallop. There is systolic murmur of mitral regurgitation and tricuspid regurgitation present. There is no rub. ABDOMEN: Soft. Nontender there is no paraspinal megaly. Bowel sounds are well heard. EXTREMITIES: Femorals are well felt. Leg pulses well felt. There is no pedal edema. There is no DVT or cellulitis. There is no cyanosis or clubbing. Capillary refill is normal. There is no calf tenderness. 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 PSYCHIATRIC: The patient judgment site are intact his affect is normal. EKG: The EKG on 03/28/2020 shows atrial fibrillation with rapid ventricular response nonspecific IVCD of the left bundle branch block type pattern. The patient is EKG today shows sinus rhythm with left bundle branch block pattern. Labs- Entire Visit 03/25/20 03/26/20 03/26/20 20:41 01:04 01:04 WBC 14.5 H RBC 3.77 Hgb 6.6 L Hct 22.1 L MCV 59 L MCH 17.6 L MCHC 30.0 L RDW 20.6 H Plt Count 247 Lymph % (Auto) Not Reportable Story % (Auto) Not Reportable Eos % (Auto) Not Reportable Baso % (Auto) Not Reportable Reticulocyte # Absolute Neuts (auto) Not Reportable Absolute Lymphs (auto) Not Reportable Absolute Monos (auto) Not Reportable Absolute Eos (auto) Not Reportable Absolute Basos (auto) Not Reportable Total Counted 100 Seg Neutrophils % Not Reportable Seg Neuts % (Manual) 84 H Band Neutrophils % 8 H Lymphocytes % (Manual) 4 L Atypical Lymphs % Monocytes % (Manual) 4 Eosinophils % (Manual) 0 Basophils % (Manual) 0 Abs Neuts (Manual) 13.3 H Abs Lymphs (Manual) 0.6 Abs Monocytes (Manual) 0.6 Absolute Eos (Manual) 0.0 Abs Basophils (Manual) 0.0 Toxic Granulation 1+ Toxic Vacuolation PRESENT Platelet Comment ADEQUATE Polychromasia SLIGHT Hypochromasia Poikilocytosis 2+ Anisocytosis 2+ Microcytosis 3+ Target Cells Tear Drop Cells SLIGHT Ovalocytes 1+ Robert Cells Schistocytes SLIGHT Retic Count (auto) PT INR APTT Sodium 126.8 L Potassium 3.6 Chloride 95 L Carbon Dioxide 21 L Anion Gap 11 BUN 12 Creatinine 0.71 Est GFR ( Amer) > 60 Est GFR (MDRD) Non-Af > 60 Glucose 130 H POC Glucose 151 H Lactic Acid Calcium 7.8 L Magnesium Iron TIBC Iron Saturation Ferritin Total Bilirubin 1.1 Direct Bilirubin 0.8 H Neonat Total Bilirubin Not Reportable Neonat Direct Bilirubin Not Reportable Neonat Indirect Bili Not Reportable AST 77 H ALT 31 Alkaline Phosphatase 104 Troponin I NT-Pro-B Natriuret Pep Total Protein 6.1 L Albumin 3.1 L Lipase 18.0 L Carcinoembryonic Ag Vitamin B12 Folate TSH Free T4 Thyroxine (T4) Free T3 pg/mL Urine Color Urine Appearance Urine pH Ur Specific [place] Urine Protein Urine Glucose (UA) Urine Ketones Urine Blood Urine Nitrite Urine Bilirubin Urine Urobilinogen Ur Leukocyte Esterase Urine WBC (Auto) Urine RBC (Auto) Squamous Epi Cells Auto Urine Mucus (Auto) Urine Ascorbic Acid POC Stool Occult Blood Time Trough Drawn Vancomycin Trough COVID-19 Source COVID-19 (IGNACIA) Slides for Path Review PATHOLOGIST REVIEWED Blood Type Blood Type Confirm Antibody Screen Crossmatch 03/26/20 03/26/20 03/26/20 01:04 01:04 02:40 WBC RBC Hgb Hct MCV MCH MCHC RDW Plt Count Lymph % (Auto) Story % (Auto) Eos % (Auto) Baso % (Auto) Reticulocyte # Absolute Neuts (auto) Absolute Lymphs (auto) Absolute Monos (auto) Absolute Eos (auto) Absolute Basos (auto) Total Counted Seg Neutrophils % Seg Neuts % (Manual) Band Neutrophils % Lymphocytes % (Manual) Atypical Lymphs % Monocytes % (Manual) Eosinophils % (Manual) Basophils % (Manual) Abs Neuts (Manual) Abs Lymphs (Manual) Abs Monocytes (Manual) Absolute Eos (Manual) Abs Basophils (Manual) Toxic Granulation Toxic Vacuolation Platelet Comment Polychromasia Hypochromasia Poikilocytosis Anisocytosis Microcytosis Target Cells Tear Drop Cells Ovalocytes [place] Cells Schistocytes Retic Count (auto) PT INR APTT Sodium Potassium Chloride Carbon Dioxide Anion Gap BUN Creatinine Est GFR ( Amer) Est GFR (MDRD) Non-Af Glucose POC Glucose Lactic Acid 1.6 Calcium Magnesium Iron TIBC Iron Saturation Ferritin Total Bilirubin Direct Bilirubin Neonat Total Bilirubin Neonat Direct Bilirubin Neonat Indirect Bili AST ALT Alkaline Phosphatase Troponin I 0.017 NT-Pro-B Natriuret Pep Total Protein Albumin Lipase Carcinoembryonic Ag Vitamin B12 Folate TSH Free T4 Thyroxine (T4) Free T3 pg/mL Urine Color YELLOW Urine Appearance CLEAR Urine pH 6.0 Ur Specific [place] 1.008 Urine Protein NEGATIVE Urine Glucose (UA) NEGATIVE Urine Ketones NEGATIVE Urine Blood NEGATIVE Urine Nitrite NEGATIVE Urine Bilirubin NEGATIVE Urine Urobilinogen 4.0 H Ur Leukocyte Esterase NEGATIVE Urine WBC (Auto) 1 Urine RBC (Auto) 1 Squamous Epi Cells Auto <1 Urine Mucus (Auto) RARE Urine Ascorbic Acid NEGATIVE POC Stool Occult Blood Time Trough Drawn Vancomycin Trough COVID-19 Source COVID-19 (IGNACIA) Slides for Path Review Blood Type Blood Type Confirm Antibody Screen Crossmatch 03/26/20 03/26/20 03/26/20 03:05 03:06 03:45 WBC RBC Hgb Hct MCV MCH MCHC RDW Plt Count Lymph % (Auto) Story % (Auto) Eos % (Auto) Baso % (Auto) Reticulocyte # Absolute Neuts (auto) Absolute Lymphs (auto) Absolute Monos (auto) Absolute Eos (auto) Absolute Basos (auto) Total Counted Seg Neutrophils % Seg Neuts % (Manual) Band Neutrophils % Lymphocytes % (Manual) Atypical Lymphs % Monocytes % (Manual) Eosinophils % (Manual) Basophils % (Manual) Abs Neuts (Manual) Abs Lymphs (Manual) Abs Monocytes (Manual) Absolute Eos (Manual) Abs Basophils (Manual) Toxic Granulation Toxic Vacuolation Platelet Comment Polychromasia Hypochromasia Poikilocytosis Anisocytosis Microcytosis Target Cells Tear Drop Cells Ovalocytes [place] Cells Schistocytes Retic Count (auto) PT INR APTT Sodium Potassium Chloride Carbon Dioxide Anion Gap BUN Creatinine Est GFR ( Amer) Est GFR (MDRD) Non-Af Glucose POC Glucose Lactic Acid Calcium Magnesium Iron TIBC Iron Saturation Ferritin Total Bilirubin Direct Bilirubin Neonat Total Bilirubin Neonat Direct Bilirubin Neonat Indirect Bili AST ALT Alkaline Phosphatase Troponin I NT-Pro-B Natriuret Pep Total Protein Albumin Lipase Carcinoembryonic Ag Vitamin B12 Folate TSH Free T4 Thyroxine (T4) Free T3 pg/mL Urine Color Urine Appearance Urine pH Ur Specific [place] Urine Protein Urine Glucose (UA) Urine Ketones Urine Blood Urine Nitrite Urine Bilirubin Urine Urobilinogen Ur Leukocyte Esterase Urine WBC (Auto) Urine RBC (Auto) Squamous Epi Cells Auto Urine Mucus (Auto) Urine Ascorbic Acid POC Stool Occult Blood NEGATIVE Time Trough Drawn Vancomycin Trough COVID-19 Source COVID-19 (IGNACIA) Slides for Path Review Blood Type O POSITIVE Blood Type Confirm O POSITIVE Antibody Screen NEGATIVE Crossmatch See Detail 03/26/20 03/26/20 03/26/20 06:20 06:30 09:07 WBC 9.1 RBC 4.05 Hgb 8.1 L Hct 25.1 L MCV 62 L MCH 20.1 L MCHC 32.4 RDW 25.7 H Plt Count 188 Lymph % (Auto) Not Reportable Story % (Auto) Not Reportable Eos % (Auto) Not Reportable Baso % (Auto) Not Reportable Reticulocyte # Absolute Neuts (auto) Not Reportable Absolute Lymphs (auto) Not Reportable Absolute Monos (auto) Not Reportable Absolute Eos (auto) Not Reportable Absolute Basos (auto) Not Reportable Total Counted 100 Seg Neutrophils % Not Reportable Seg Neuts % (Manual) 91 H Band Neutrophils % 3 Lymphocytes % (Manual) 1 L Atypical Lymphs % 1 Monocytes % (Manual) 3 Eosinophils % (Manual) 1 Basophils % (Manual) 0 Abs Neuts (Manual) 8.6 H Abs Lymphs (Manual) 0.2 L Abs Monocytes (Manual) 0.3 Absolute Eos (Manual) 0.1 Abs Basophils (Manual) 0.0 Toxic Granulation 1+ Toxic Vacuolation PRESENT Platelet Comment ADEQUATE Polychromasia SLIGHT Hypochromasia 2+ Poikilocytosis SLIGHT Anisocytosis 3+ Microcytosis 3+ Target Cells Tear Drop Cells SLIGHT Ovalocytes Robert Cells Schistocytes Retic Count (auto) PT INR APTT Sodium Potassium Chloride Carbon Dioxide Anion Gap BUN Creatinine Est GFR ( Amer) Est GFR (MDRD) Non-Af Glucose POC Glucose Lactic Acid Calcium Magnesium Iron TIBC Iron Saturation Ferritin Total Bilirubin Direct Bilirubin Neonat Total Bilirubin Neonat Direct Bilirubin Neonat Indirect Bili AST ALT Alkaline Phosphatase Troponin I 0.018 NT-Pro-B Natriuret Pep Total Protein Albumin Lipase Carcinoembryonic Ag Vitamin B12 Folate TSH Free T4 Thyroxine (T4) Free T3 pg/mL Urine Color Urine Appearance Urine pH Ur Specific [place] Urine Protein Urine Glucose (UA) Urine Ketones Urine Blood Urine Nitrite Urine Bilirubin Urine Urobilinogen Ur Leukocyte Esterase Urine WBC (Auto) Urine RBC (Auto) Squamous Epi Cells Auto Urine Mucus (Auto) Urine Ascorbic Acid POC Stool Occult Blood Time Trough Drawn Vancomycin Trough COVID-19 Source NASOPHARYNGEAL COVID-19 (IGNACIA) NOT DETECTED Slides for Path Review Blood Type Blood Type Confirm Antibody Screen Crossmatch 03/26/20 03/26/20 03/27/20 21:38 21:38 04:50 WBC 6.8 RBC 3.86 Hgb 7.7 L Hct 23.9 L MCV 62 L MCH 19.9 L MCHC 32.2 RDW 25.1 H Plt Count 148 L Lymph % (Auto) Not Reportable Story % (Auto) Not Reportable Eos % (Auto) Not Reportable Baso % (Auto) Not Reportable Reticulocyte # 0.053 Absolute Neuts (auto) Not Reportable Absolute Lymphs (auto) Not Reportable Absolute Monos (auto) Not Reportable Absolute Eos (auto) Not Reportable Absolute Basos (auto) Not Reportable Total Counted 100 Seg Neutrophils % Not Reportable Seg Neuts % (Manual) 77 Band Neutrophils % 1 L Lymphocytes % (Manual) 13 Atypical Lymphs % Monocytes % (Manual) 5 Eosinophils % (Manual) 4 Basophils % (Manual) 0 Abs Neuts (Manual) 5.3 Abs Lymphs (Manual) 0.9 Abs Monocytes (Manual) 0.3 Absolute Eos (Manual) 0.3 Abs Basophils (Manual) 0.0 Toxic Granulation Toxic Vacuolation Platelet Comment DECREASED Polychromasia Hypochromasia Poikilocytosis Anisocytosis 3+ Microcytosis 3+ Target Cells Tear Drop Cells Ovalocytes 1+ [place] Cells 2+ Schistocytes SLIGHT Retic Count (auto) 1.29 PT INR APTT Sodium Potassium Chloride Carbon Dioxide Anion Gap BUN Creatinine Est GFR ( Amer) Est GFR (MDRD) Non-Af Glucose POC Glucose Lactic Acid Calcium Magnesium Iron < 10.1 L TIBC 322 Iron Saturation UNABLE TO CALCULATE Ferritin 68.10 Total Bilirubin Direct Bilirubin Neonat Total Bilirubin Neonat Direct Bilirubin Neonat Indirect Bili AST ALT Alkaline Phosphatase Troponin I NT-Pro-B Natriuret Pep Total Protein Albumin Lipase Carcinoembryonic Ag Vitamin B12 548.0 Folate 8.82 TSH Free T4 Thyroxine (T4) Free T3 pg/mL Urine Color Urine Appearance Urine pH Ur Specific [place] Urine Protein Urine Glucose (UA) Urine Ketones Urine Blood Urine Nitrite Urine Bilirubin Urine Urobilinogen Ur Leukocyte Esterase Urine WBC (Auto) Urine RBC (Auto) Squamous Epi Cells Auto Urine Mucus (Auto) Urine Ascorbic Acid POC Stool Occult Blood Time Trough Drawn Vancomycin Trough COVID-19 Source COVID-19 (IGNACIA) Slides for Path Review Blood Type Blood Type Confirm Antibody Screen Crossmatch 03/27/20 03/27/20 03/27/20 04:50 04:50 16:50 WBC 9.2 RBC 4.64 Hgb 10.0 L D Hct 30.6 L MCV 66 L D MCH 21.5 L MCHC 32.6 RDW 27.1 H Plt Count 211 Lymph % (Auto) Not Reportable Story % (Auto) Not Reportable Eos % (Auto) Not Reportable Baso % (Auto) Not Reportable Reticulocyte # Absolute Neuts (auto) Not Reportable Absolute Lymphs (auto) Not Reportable Absolute Monos (auto) Not Reportable Absolute Eos (auto) Not Reportable Absolute Basos (auto) Not Reportable Total Counted 100 Seg Neutrophils % Not Reportable Seg Neuts % (Manual) 82 H Band Neutrophils % Lymphocytes % (Manual) 7 L Atypical Lymphs % 1 Monocytes % (Manual) 4 Eosinophils % (Manual) 5 Basophils % (Manual) 1 Abs Neuts (Manual) 7.5 Abs Lymphs (Manual) 0.7 Abs Monocytes (Manual) 0.4 Absolute Eos (Manual) 0.5 Abs Basophils (Manual) 0.1 Toxic Granulation 1+ Toxic Vacuolation Platelet Comment ADEQUATE Polychromasia SLIGHT Hypochromasia SLIGHT Poikilocytosis 1+ Anisocytosis 2+ Microcytosis 2+ Target Cells Tear Drop Cells SLIGHT Ovalocytes SLIGHT [place] Cells SLIGHT Schistocytes SLIGHT Retic Count (auto) PT INR APTT Sodium 129.1 L Potassium 3.0 L* Chloride 104 Carbon Dioxide 18 L Anion Gap 7 BUN 11 Creatinine 0.58 Est GFR ( Amer) > 60 Est GFR (MDRD) Non-Af > 60 Glucose 97 POC Glucose Lactic Acid Calcium 7.3 L Magnesium 1.8 Iron TIBC Iron Saturation Ferritin Total Bilirubin 2.5 H Direct Bilirubin 2.2 H Neonat Total Bilirubin Not Reportable Neonat Direct Bilirubin Not Reportable Neonat Indirect Bili Not Reportable AST 95 H ALT 47 H Alkaline Phosphatase 164 H Troponin I NT-Pro-B Natriuret Pep Total Protein 5.1 L Albumin 2.4 L Lipase Carcinoembryonic Ag Vitamin B12 Folate TSH Free T4 Thyroxine (T4) Free T3 pg/mL Urine Color Urine Appearance Urine pH Ur Specific [place] Urine Protein Urine Glucose (UA) Urine Ketones Urine Blood Urine Nitrite Urine Bilirubin Urine Urobilinogen Ur Leukocyte Esterase Urine WBC (Auto) Urine RBC (Auto) Squamous Epi Cells Auto Urine Mucus (Auto) Urine Ascorbic Acid POC Stool Occult Blood Time Trough Drawn Vancomycin Trough COVID-19 Source COVID-19 (IGNACIA) Slides for Path Review Blood Type Blood Type Confirm Antibody Screen Crossmatch 03/28/20 03/28/20 03/28/20 12:05 12:05 12:05 WBC 7.8 RBC 4.73 Hgb 10.2 L Hct 31.0 L MCV 66 L MCH 21.5 L MCHC 32.9 RDW 27.1 H Plt Count 208 Lymph % (Auto) 6.2 L Story % (Auto) 7.4 Eos % (Auto) 2.8 Baso % (Auto) 0.5 Reticulocyte # Absolute Neuts (auto) 6.5 Absolute Lymphs (auto) 0.5 Absolute Monos (auto) 0.6 Absolute Eos (auto) 0.2 Absolute Basos (auto) 0.0 Total Counted Seg Neutrophils % 83.1 H Seg Neuts % (Manual) Band Neutrophils % Lymphocytes % (Manual) Atypical Lymphs % Monocytes % (Manual) Eosinophils % (Manual) Basophils % (Manual) Abs Neuts (Manual) Abs Lymphs (Manual) Abs Monocytes (Manual) Absolute Eos (Manual) Abs Basophils (Manual) Toxic Granulation Toxic Vacuolation Platelet Comment ADEQUATE Polychromasia SLIGHT Hypochromasia 2+ Poikilocytosis 1+ Anisocytosis 3+ Microcytosis 3+ Target Cells SLIGHT Tear Drop Cells SLIGHT Ovalocytes 1+ Robert Cells Schistocytes Retic Count (auto) PT INR APTT Sodium 134.0 L Potassium 3.5 L Chloride 109 H Carbon Dioxide 18 L Anion Gap 7 BUN 5 L Creatinine 0.54 Est GFR ( Amer) > 60 Est GFR (MDRD) Non-Af > 60 Glucose 117 H POC Glucose Lactic Acid Calcium 7.7 L Magnesium 1.9 Iron TIBC Iron Saturation Ferritin Total Bilirubin 3.7 H Direct Bilirubin 3.3 H Neonat Total Bilirubin Not Reportable Neonat Direct Bilirubin Not Reportable Neonat Indirect Bili Not Reportable AST 113 H ALT 74 H Alkaline Phosphatase 283 H Troponin I NT-Pro-B Natriuret Pep Total Protein 5.4 L Albumin 2.5 L Lipase Carcinoembryonic Ag Vitamin B12 Folate TSH 1.35 Free T4 2.12 Thyroxine (T4) Free T3 pg/mL 3.15 Urine Color Urine Appearance Urine pH Ur Specific [place] Urine Protein Urine Glucose (UA) Urine Ketones Urine Blood Urine Nitrite Urine Bilirubin Urine Urobilinogen Ur Leukocyte Esterase Urine WBC (Auto) Urine RBC (Auto) Squamous Epi Cells Auto Urine Mucus (Auto) Urine Ascorbic Acid POC Stool Occult Blood Time Trough Drawn Vancomycin Trough COVID-19 Source COVID-19 (IGNACIA) Slides for Path Review Blood Type Blood Type Confirm Antibody Screen Crossmatch 03/28/20 03/29/20 03/29/20 12:05 18:24 18:24 WBC RBC Hgb Hct MCV MCH MCHC RDW Plt Count Lymph % (Auto) Story % (Auto) Eos % (Auto) Baso % (Auto) Reticulocyte # Absolute Neuts (auto) Absolute Lymphs (auto) Absolute Monos (auto) Absolute Eos (auto) Absolute Basos (auto) Total Counted Seg Neutrophils % Seg Neuts % (Manual) Band Neutrophils % Lymphocytes % (Manual) Atypical Lymphs % Monocytes % (Manual) Eosinophils % (Manual) Basophils % (Manual) Abs Neuts (Manual) Abs Lymphs (Manual) Abs Monocytes (Manual) Absolute Eos (Manual) Abs Basophils (Manual) Toxic Granulation Toxic Vacuolation Platelet Comment Polychromasia Hypochromasia Poikilocytosis Anisocytosis Microcytosis Target Cells Tear Drop Cells Ovalocytes [place] Cells Schistocytes Retic Count (auto) PT INR APTT Sodium Potassium Chloride Carbon Dioxide Anion Gap BUN Creatinine Est GFR ( Amer) Est GFR (MDRD) Non-Af Glucose POC Glucose Lactic Acid Calcium Magnesium Iron TIBC Iron Saturation Ferritin Total Bilirubin Direct Bilirubin Neonat Total Bilirubin Neonat Direct Bilirubin Neonat Indirect Bili AST ALT Alkaline Phosphatase Troponin I NT-Pro-B Natriuret Pep 43304 H Total Protein Albumin Lipase Carcinoembryonic Ag 1.87 Vitamin B12 Folate TSH Free T4 Thyroxine (T4) 6.5 Free T3 pg/mL Urine Color Urine Appearance Urine pH Ur Specific [place] Urine Protein Urine Glucose (UA) Urine Ketones Urine Blood Urine Nitrite Urine Bilirubin Urine Urobilinogen Ur Leukocyte Esterase Urine WBC (Auto) Urine RBC (Auto) Squamous Epi Cells Auto Urine Mucus (Auto) Urine Ascorbic Acid POC Stool Occult Blood Time Trough Drawn Vancomycin Trough COVID-19 Source COVID-19 (IGNACIA) Slides for Path Review Blood Type Blood Type Confirm Antibody Screen Crossmatch 03/30/20 03/30/20 03/31/20 09:41 15:41 20:53 WBC 8.2 RBC 4.64 Hgb 9.9 L Hct 31.4 L MCV 68 L MCH 21.3 L MCHC 31.5 L RDW 27.6 H Plt Count 395 Lymph % (Auto) Not Reportable Story % (Auto) Not Reportable Eos % (Auto) Not Reportable Baso % (Auto) Not Reportable Reticulocyte # Absolute Neuts (auto) Not Reportable Absolute Lymphs (auto) Not Reportable Absolute Monos (auto) Not Reportable Absolute Eos (auto) Not Reportable Absolute Basos (auto) Not Reportable Total Counted 100 Seg Neutrophils % Not Reportable Seg Neuts % (Manual) 75 Band Neutrophils % 2 L Lymphocytes % (Manual) 15 Atypical Lymphs % 1 Monocytes % (Manual) 5 Eosinophils % (Manual) 2 Basophils % (Manual) 0 Abs Neuts (Manual) 6.3 Abs Lymphs (Manual) 1.3 Abs Monocytes (Manual) 0.4 Absolute Eos (Manual) 0.2 Abs Basophils (Manual) 0.0 Toxic Granulation Toxic Vacuolation Platelet Comment ADEQUATE Polychromasia SLIGHT Hypochromasia SLIGHT Poikilocytosis SLIGHT Anisocytosis 3+ Microcytosis 2+ Target Cells SLIGHT Tear Drop Cells Ovalocytes SLIGHT [place] Cells Schistocytes Retic Count (auto) PT 17.3 H INR 1.39 APTT 47.1 H Sodium Potassium Chloride Carbon Dioxide Anion Gap BUN Creatinine Est GFR ( Amer) Est GFR (MDRD) Non-Af Glucose POC Glucose Lactic Acid Calcium Magnesium Iron TIBC Iron Saturation Ferritin Total Bilirubin Direct Bilirubin Neonat Total Bilirubin Neonat Direct Bilirubin Neonat Indirect Bili AST ALT Alkaline Phosphatase Troponin I NT-Pro-B Natriuret Pep Total Protein Albumin Lipase Carcinoembryonic Ag Vitamin B12 Folate TSH Free T4 Thyroxine (T4) Free T3 pg/mL Urine Color Urine Appearance Urine pH Ur Specific [place] Urine Protein Urine Glucose (UA) Urine Ketones Urine Blood Urine Nitrite Urine Bilirubin Urine Urobilinogen Ur Leukocyte Esterase Urine WBC (Auto) Urine RBC (Auto) Squamous Epi Cells Auto Urine Mucus (Auto) Urine Ascorbic Acid POC Stool Occult Blood Time Trough Drawn 0941 Vancomycin Trough 5.8 COVID-19 Source COVID-19 (IGNACIA) Slides for Path Review Blood Type Blood Type Confirm Antibody Screen Crossmatch 03/31/20 20:53 WBC RBC Hgb Hct MCV MCH MCHC RDW Plt Count Lymph % (Auto) Story % (Auto) Eos % (Auto) Baso % (Auto) Reticulocyte # Absolute Neuts (auto) Absolute Lymphs (auto) Absolute Monos (auto) Absolute Eos (auto) Absolute Basos (auto) Total Counted Seg Neutrophils % Seg Neuts % (Manual) Band Neutrophils % Lymphocytes % (Manual) Atypical Lymphs % Monocytes % (Manual) Eosinophils % (Manual) Basophils % (Manual) Abs Neuts (Manual) Abs Lymphs (Manual) Abs Monocytes (Manual) Absolute Eos (Manual) Abs Basophils (Manual) Toxic Granulation Toxic Vacuolation Platelet Comment Polychromasia Hypochromasia Poikilocytosis Anisocytosis Microcytosis Target Cells Tear Drop Cells Ovalocytes [place] Cells Schistocytes Retic Count (auto) PT INR APTT Sodium 132.8 L Potassium 3.7 Chloride 104 Carbon Dioxide 20 L Anion Gap 9 BUN 5 L Creatinine 0.62 Est GFR ( Amer) > 60 Est GFR (MDRD) Non-Af > 60 Glucose 150 H POC Glucose Lactic Acid Calcium 8.0 L Magnesium Iron TIBC Iron Saturation Ferritin Total Bilirubin 1.2 Direct Bilirubin 0.8 H Neonat Total Bilirubin Not Reportable Neonat Direct Bilirubin Not Reportable Neonat Indirect Bili Not Reportable AST 34 ALT 49 H Alkaline Phosphatase 274 H Troponin I NT-Pro-B Natriuret Pep Total Protein 5.7 L Albumin 2.8 L Lipase Carcinoembryonic Ag Vitamin B12 Folate TSH Free T4 Thyroxine (T4) Free T3 pg/mL Urine Color Urine Appearance Urine pH Ur Specific [place] Urine Protein Urine Glucose (UA) Urine Ketones Urine Blood Urine Nitrite Urine Bilirubin Urine Urobilinogen Ur Leukocyte Esterase Urine WBC (Auto) Urine RBC (Auto) Squamous Epi Cells Auto Urine Mucus (Auto) Urine Ascorbic Acid POC Stool Occult Blood Time Trough Drawn Vancomycin Trough COVID-19 Source COVID-19 (IGNACIA) Slides for Path Review Blood Type Blood Type Confirm Antibody Screen Crossmatch Chest X-Ray 03/26/20 00:00 IMPRESSION: No acute abnormality is identified. Acute Abdomen Series 03/26/20 01:24 IMPRESSION: No acute cardiopulmonary process. Moderate gas and stool in the colon copyright 2011 [employer]- All Rights Reserved Abdomen/Pelvis CT 03/26/20 02:59 IMPRESSION: 1. No evidence of acute intra-abdominal or intrapelvic pathology. 2. There is no evidence of bowel obstruction. 3. Very small hiatal hernia. Chest CT 03/30/20 09:15 IMPRESSION: 1. Mild cardiomegaly and bilateral pleural effusions without evidence of pulmonary edema. 2. Nodular ground-glass opacities in the right lower lobe (image 49 of series 4 and 55 of series 4) that are nonspecific and could represent an infectious or inflammatory process. ECHOCARDIOGRAM: Shows moderately reduced LV ejection fraction of 35% with wall motion abnormality. There is moderate to severe mitral regurgitation moderate to severe tricuspid regurgitation. There is moderate pulmonary hypertension there is no pericardial effusion. Impression/RECOMMENDATION. 1. Paroxysmal atrial fibrillation: Patient present in sinus rhythm. Patient on Eliquis. At present heart rate seems to be controlled. The patient's corrected Jose vas 2 score is 3 hence chronic anticoagulation is indicated. But needs a GI work-up to make sure that there is no increasing bleeding risk from GI bleeds. 2. Severe anemia seems to be iron deficiency. GI work-up in progress. Would strongly recommend that the patient have an inpatient GI work-up since the patient is being placed on Eliquis. 3. 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 Would recommend st arting the patient on a beta-barrington and Entresto. 4. Abnormal LFTs secondary to alcohol abuse. 5. Moderate to severe mitral regurgitation. 6. Moderate to severe tricuspid regurgitation 7. Moderate pulmonary hypertension. 8. History of alcohol abuse. Patient counseled to abstain from alcohol in the face of alcohol have been explained in detail. EKG reviewed. Medications adjusted. Medical decision making is of high complexity. 60 minutes spent as patient more than 50% time spent in direct patient care. Medical regimen and management plan discussed with attending provider on the case. 7.
[2020-03-31] MEDS: LEVALBUTEROL HCL NEB 1.25 MG/3 ML AMPUL NEB PRN (17:40)
--- NOTE | 2020-03-31 20:20 | PDOC PROGRESS REPORT ---
Subjective Progress Note for:: 03/31/20 Subjective:: Patient seen by the bedside,, complain of cough, she was seen by Dr. Barclay, cardiology. Reason For Visit: ANEMIA,BANDEMIA,FEVER Physical Exam Vital Signs: Temp Pulse Resp BP Pulse Ox 98.0 F 73 16 133/63 H 100 03/31/20 16:37 03/31/20 17:40 03/31/20 17:40 03/31/20 16:37 03/31/20 16:37 Intake & Output 03/30/20 03/31/20 04/01/20 06:59 06:59 06:59 Intake Total 1797 1198 1238 Balance 1797 1198 1238 Weight 57.1 kg 57.1 kg General appearance: PRESENT: no acute distress Eye exam: PRESENT: PERRLA Respiratory exam: PRESENT: clear to auscultation izzy Cardiovascular exam: PRESENT: +S1, +S2 GI/Abdominal exam: PRESENT: soft Neurological exam: PRESENT: alert Results Laboratory Results: 03/28/20 12:05 03/28/20 12:05 03/26/20 07:54 Blood Blood Culture - Final NO GROWTH IN 5 DAYS 03/26/20 06:30 Blood Blood Culture - Final NO GROWTH IN 5 DAYS 03/26/20 03/26/20 03/29/20 01:04 06:30 18:24 Troponin I 0.017 0.018 NT-Pro-B Natriuret Pep 46082 H Impressions: Chest X-Ray 03/26/20 00:00 IMPRESSION: No acute abnormality is identified. Acute Abdomen Series 03/26/20 01:24 IMPRESSION: No acute cardiopulmonary process. Moderate gas and stool in the colon copyright 2011 [employer]- All Rights Reserved Abdomen/Pelvis CT 03/26/20 02:59 IMPRESSION: 1. No evidence of acute intra-abdominal or intrapelvic pathology. 2. There is no evidence of bowel obstruction. 3. Very small hiatal hernia. Chest CT 03/30/20 09:15 IMPRESSION: 1. Mild cardiomegaly and bilateral pleural effusions without evidence of pulmonary edema. 2. Nodular ground-glass opacities in the right lower lobe (image 49 of series 4 and 55 of series 4) that are nonspecific and could represent an infectious or inflammatory process. Assessment & Plan - Diagnosis (1) Iron deficiency anemia Qualifiers: Iron deficiency anemia type: chronic blood loss Qualified Code(s): D50.0 - Iron deficiency anemia secondary to blood loss (chronic) Is this a current diagnosis for this admission?: Yes Plan: Patient was seen by GI she will need to have colonoscopy before discharge (2) Atrial fibrillation with rapid ventricular response Is this a current diagnosis for this admission?: Yes Plan: Presently rate controlled, continue present treatment (3) Hyponatremia Is this a current diagnosis for this admission?: Yes Plan: Resolved (4) Fever Qualifiers: Fever type: unspecified Qualified Code(s): R50.9 - Fever, unspecified Is this a current diagnosis for this admission?: Yes (5) Cardiomyopathy, alcoholic Is this a current diagnosis for this admission?: Yes Plan: She has cardiomyopathy, history of alcohol abuse, heavy alcohol use, transthoracic cardiogram was done, the estimated ejection fraction 34%, consistent with cardiomyopathy most likely alcohol-related (6) Alcoholic liver disease Is this a current diagnosis for this admission?: Yes Plan: The liver enzymes consistent with alcohol liver disease, on direct questioning she admitted to heavy alcohol consumption. continue lorazepam preemptively to prevent alcohol withdrawal syndrome. continue thiamine and folic acid - Time Time Spent with patient: 25-34 minutes Level of Care: IMCU Medications reviewed and adjusted accordingly: Yes Anticipated discharge: Home Anticipated DC Timeframe: within 72 hours
[2020-03-31 21:24] LABS: HEMATOCRIT 31.4 % (36.0-47.0); HEMOGLOBIN 9.9 g/dL (12.0-15.5); MEAN CORPUSCULAR HEMOGLOBIN 21.3 pg (27.0-33.4); MEAN CORPUSCULAR HGB CONC 31.5 g/dL (32.0-36.0); MEAN CORPUSCULAR VOLUME 68 fl (80-97); PLATELET COUNT 395 10^3/uL (150-450); RED BLOOD COUNT 4.64 10^6/uL (3.72-5.28); RED CELL DISTRIBUTION WIDTH 27.6 % (11.5-14.0); WHITE BLOOD COUNT 8.2 10^3/uL (4.0-10.5)
[2020-03-31 21:34] LABS: ALBUMIN 2.8 g/dL (3.5-5.0); ALKALINE PHOSPHATASE 274 U/L (38-126); ANION GAP 9 (5-19); ASPARTATE AMINO TRANSFERASE 34 U/L (14-36); BILIRUBIN,DIRECT 0.8 mg/dL (0.0-0.4); BILIRUBIN,TOTAL 1.2 mg/dL (0.2-1.3); BLOOD UREA NITROGEN 5 mg/dL (7-20); CARBON DIOXIDE 20 mmol/L (22-30); CHLORIDE 104 mmol/L (98-107); GLUCOSE 150 mg/dL (75-110); POTASSIUM 3.7 mmol/L (3.6-5.0); TOTAL PROTEIN 5.7 g/dL (6.3-8.2)
[2020-03-31 21:44] LABS: ABSOLUTE LYMPHOCYTES# (MANUAL) 1.3 10^3/uL (0.5-4.7); ABSOLUTE MONOCYTES # (MANUAL) 0.4 10^3/uL (0.1-1.4); BAND NEUTROPHILS % (MANUAL) 2 % (3-5); BASOPHILS % (MANUAL) 0 % (0-2); EOSINOPHILS % (MANUAL) 2 % (0-6); LYMPHOCYTES % (MANUAL) 15 % (13-45); MONOCYTES % (MANUAL) 5 % (3-13); SEGMENTED NEUTROPHILS % (MAN) 75 % (42-78); TOTAL CELLS COUNTED 100
[2020-03-31 21:46] LABS: ANISOCYTOSIS 3+; OVALOCYTES SLIGHT; PLATELET COMMENT ADEQUATE; POIKILOCYTOSIS SLIGHT; POLYCHROMASIA SLIGHT; TARGET CELLS SLIGHT
[2020-03-31 21:48] LABS: HYPOCHROMASIA SLIGHT
[2020-04-01] MEDS: PANTOPRAZOLE SODIUM 40 MG TABLET.DR PO SCH (06:00)
[2020-04-01] MEDS: LORAZEPAM 0.5 MG TABLET PO SCH ×3 (06:00→22:32)
--- NOTE | 2020-04-01 10:23 | Progress Note ---
Provider Note Provider Note: Cardiology consult noted patient has been stable on sinus rhythm will prep for colonoscopy on Wednesday 04/04. since has iron deficiency anemia , may benefit from EGD as well prep orders will be written over the weekend she currently has to stay on anticoagulation due to her GEORGE score
[2020-04-01] MEDS: APIXABAN 5 MG TABLET PO SCH ×2 (10:25→18:20)
[2020-04-01] MEDS: THIAMINE HCL 100 MG TABLET PO SCH (10:26)
[2020-04-01] MEDS: METOPROLOL SUCCINATE 50 MG TAB.SR.24H PO SCH (10:26)
[2020-04-01] MEDS: SACUBITRIL/VALSARTAN 24 MG/26 MG TABLET PO SCH ×2 (10:26→18:24)
[2020-04-01] MEDS: FOLIC ACID 1 MG TABLET PO SCH (10:26)
--- NOTE | 2020-04-01 16:44 | EKG REPORT ---
SEVERITY:- ABNORMAL ECG - SINUS RHYTHM VENTRICULAR PREMATURE COMPLEX LEFT BUNDLE BRANCH BLOCK : Confirmed by: Kirill Hughes MD 01-Apr-2020 16:43:41
--- NOTE | 2020-04-01 19:27 | Progress Note ---
Provider Note Provider Note: CARDIOLOGY PROGRESS NOTE by Dr. Shmuel Mcclendon on 04/01/2020 SUBJECTIVE: The patient denies any chest pain discomfort. She remains in sinus rhythm. There is no ventricle arrhythmia seen on the monitor. There is no TIA CVA symptoms. There is no further evidence of GI bleed. Patient is awaiting a work-up. She has a good dose of beta-barrington. Will later increase the patient's Entresto. The patient is more likely Eliquis will be held until the GI work-up is finished. PHYSICAL EXAMINATION: The patient is well-built. In no acute distress Selected Entries 04/02/20 14:54 Temperature 98.3 F Temperature Oral Source Pulse Rate 72 Respiratory 18 Rate Blood Pressure 113/57 L Blood Pressure 75 Mean BP Location Right Arm BP Position Supine O2 Sat by Pulse 100 Oximetry Oxygen Delivery Room Air Method HEAD:: Is atraumatic normocephalic EYES: Pupils equal round regular reactive light accommodation. Extraocular movements are normal. There is no conjunctival pallor. There is no scleral icterus. EARS: Tympanic membranes are intact. External auditory canals canals are clear. NOSE: There is no deviated nasal septum. There is no inflammation of the nasal mucous membrane. NOSE: There is no deviated nasal septum. There is no inflammation of the nasal mucous membrane. MOUTH: Mucous membranes of the mouth are moist. Tongue is moist. THROAT: There is no redness of the oropharynx. There is no exudates. SKIN: There is no skin rashes. There is no petechia or ecchymosis. There is no skin lesions. NECK: Supple. There is no JVD. Carotids are equal there is no bruit there is no lymphadenopathy. There is no goiter. LUNGS: Trachea central lungs are clear to auscultation percussion. There is no chest wall tenderness. Heart HEART: S1-S2 is heard. There is no S3 gallop. There is no S4 gallop. There is systolic murmur of mitral regurgitation and tricuspid regurgitation present. There is no rub. ABDOMEN: Soft. Nontender there is no paraspinal megaly. Bowel sounds are well heard. EXTREMITIES: Femorals are well felt. Leg pulses well felt. There is no pedal edema. There is no DVT or cellulitis. There is no cyanosis or clubbing. Capillary refill is normal. There is no calf tenderness. GATE KEEPER: The patient is conscious awake alert oriented x3 with no focal deficits. PSYCHIATRIC: The patient judgment site are intact his affect is normal. Labs- Entire Visit 03/25/20 03/26/20 03/26/20 20:41 01:04 01:04 WBC 14.5 H RBC 3.77 Hgb 6.6 L Hct 22.1 L MCV 59 L MCH 17.6 L MCHC 30.0 L RDW 20.6 H Plt Count 247 Lymph % (Auto) Not Reportable Wilkinson % (Auto) Not Reportable Eos % (Auto) Not Reportable Baso % (Auto) Not Reportable Reticulocyte # Absolute Neuts (auto) Not Reportable Absolute Lymphs (auto) Not Reportable Absolute Monos (auto) Not Reportable Absolute Eos (auto) Not Reportable Absolute Basos (auto) Not Reportable Total Counted 100 Seg Neutrophils % Not Reportable Seg Neuts % (Manual) 84 H Band Neutrophils % 8 H Lymphocytes % (Manual) 4 L Atypical Lymphs % Monocytes % (Manual) 4 Eosinophils % (Manual) 0 Basophils % (Manual) 0 Abs Neuts (Manual) 13.3 H Abs Lymphs (Manual) 0.6 Abs Monocytes (Manual) 0.6 Absolute Eos (Manual) 0.0 Abs Basophils (Manual) 0.0 Toxic Granulation 1+ Toxic Vacuolation PRESENT Platelet Comment ADEQUATE Polychromasia SLIGHT Hypochromasia Poikilocytosis 2+ Anisocytosis 2+ Microcytosis 3+ Target Cells Tear Drop Cells SLIGHT Ovalocytes 1+ Robert Cells Schistocytes SLIGHT Retic Count (auto) PT INR APTT Sodium 126.8 L Potassium 3.6 Chloride 95 L Carbon Dioxide 21 L Anion Gap 11 BUN 12 Creatinine 0.71 Est GFR ( Amer) > 60 Est GFR (MDRD) Non-Af > 60 Glucose 130 H POC Glucose 151 H Lactic Acid Calcium 7.8 L Magnesium Iron TIBC Iron Saturation Ferritin Total Bilirubin 1.1 Direct Bilirubin 0.8 H Neonat Total Bilirubin Not Reportable Neonat Direct Bilirubin Not Reportable Neonat Indirect Bili Not Reportable AST 77 H ALT 31 Alkaline Phosphatase 104 Troponin I NT-Pro-B Natriuret Pep Total Protein 6.1 L Albumin 3.1 L Lipase 18.0 L Carcinoembryonic Ag Vitamin B12 Folate TSH Free T4 Thyroxine (T4) Free T3 pg/mL Urine Color Urine Appearance Urine pH Ur Specific [place] Urine Protein Urine Glucose (UA) Urine Ketones Urine Blood Urine Nitrite Urine Bilirubin Urine Urobilinogen Ur Leukocyte Esterase Urine WBC (Auto) Urine RBC (Auto) Squamous Epi Cells Auto Urine Mucus (Auto) Urine Ascorbic Acid POC Stool Occult Blood Time Trough Drawn Vancomycin Trough COVID-19 Source COVID-19 (IGNACIA) Slides for Path Review PATHOLOGIST REVIEWED Blood Type Blood Type Confirm Antibody Screen Crossmatch 03/26/20 03/26/20 03/26/20 01:04 01:04 02:40 WBC RBC Hgb Hct MCV MCH MCHC RDW Plt Count Lymph % (Auto) Wilkinson % (Auto) Eos % (Auto) Baso % (Auto) Reticulocyte # Absolute Neuts (auto) Absolute Lymphs (auto) Absolute Monos (auto) Absolute Eos (auto) Absolute Basos (auto) Total Counted Seg Neutrophils % Seg Neuts % (Manual) Band Neutrophils % Lymphocytes % (Manual) Atypical Lymphs % Monocytes % (Manual) Eosinophils % (Manual) Basophils % (Manual) Abs Neuts (Manual) Abs Lymphs (Manual) Abs Monocytes (Manual) Absolute Eos (Manual) Abs Basophils (Manual) Toxic Granulation Toxic Vacuolation Platelet Comment Polychromasia Hypochromasia Poikilocytosis Anisocytosis Microcytosis Target Cells Tear Drop Cells Ovalocytes Robert Cells Schistocytes Retic Count (auto) PT INR APTT Sodium Potassium Chloride Carbon Dioxide Anion Gap BUN Creatinine Est GFR ( Amer) Est GFR (MDRD) Non-Af Glucose POC Glucose Lactic Acid 1.6 Calcium Magnesium Iron TIBC Iron Saturation Ferritin Total Bilirubin Direct Bilirubin Neonat Total Bilirubin Neonat Direct Bilirubin Neonat Indirect Bili AST ALT Alkaline Phosphatase Troponin I 0.017 NT-Pro-B Natriuret Pep Total Protein Albumin Lipase Carcinoembryonic Ag Vitamin B12 Folate TSH Free T4 Thyroxine (T4) Free T3 pg/mL Urine Color YELLOW Urine Appearance CLEAR Urine pH 6.0 Ur Specific [place] 1.008 Urine Protein NEGATIVE Urine Glucose (UA) NEGATIVE Urine Ketones NEGATIVE Urine Blood NEGATIVE Urine Nitrite NEGATIVE Urine Bilirubin NEGATIVE Urine Urobilinogen 4.0 H Ur Leukocyte Esterase NEGATIVE Urine WBC (Auto) 1 Urine RBC (Auto) 1 Squamous Epi Cells Auto <1 Urine Mucus (Auto) RARE Urine Ascorbic Acid NEGATIVE POC Stool Occult Blood Time Trough Drawn Vancomycin Trough COVID-19 Source COVID-19 (IGNACIA) Slides for Path Review Blood Type Blood Type Confirm Antibody Screen Crossmatch 03/26/20 03/26/20 03/26/20 03:05 03:06 03:45 WBC RBC Hgb Hct MCV MCH MCHC RDW Plt Count Lymph % (Auto) Wilkinson % (Auto) Eos % (Auto) Baso % (Auto) Reticulocyte # Absolute Neuts (auto) Absolute Lymphs (auto) Absolute Monos (auto) Absolute Eos (auto) Absolute Basos (auto) Total Counted Seg Neutrophils % Seg Neuts % (Manual) Band Neutrophils % Lymphocytes % (Manual) Atypical Lymphs % Monocytes % (Manual) Eosinophils % (Manual) Basophils % (Manual) Abs Neuts (Manual) Abs Lymphs (Manual) Abs Monocytes (Manual) Absolute Eos (Manual) Abs Basophils (Manual) Toxic Granulation Toxic Vacuolation Platelet Comment Polychromasia Hypochromasia Poikilocytosis Anisocytosis Microcytosis Target Cells Tear Drop Cells Ovalocytes Robert Cells Schistocytes Retic Count (auto) PT INR APTT Sodium Potassium Chloride Carbon Dioxide Anion Gap BUN Creatinine Est GFR ( Amer) Est GFR (MDRD) Non-Af Glucose POC Glucose Lactic Acid Calcium Magnesium Iron TIBC Iron Saturation Ferritin Total Bilirubin Direct Bilirubin Neonat Total Bilirubin Neonat Direct Bilirubin Neonat Indirect Bili AST ALT Alkaline Phosphatase Troponin I NT-Pro-B Natriuret Pep Total Protein Albumin Lipase Carcinoembryonic Ag Vitamin B12 Folate TSH Free T4 Thyroxine (T4) Free T3 pg/mL Urine Color Urine Appearance Urine pH Ur Specific [place] Urine Protein Urine Glucose (UA) Urine Ketones Urine Blood Urine Nitrite Urine Bilirubin Urine Urobilinogen Ur Leukocyte Esterase Urine WBC (Auto) Urine RBC (Auto) Squamous Epi Cells Auto Urine Mucus (Auto) Urine Ascorbic Acid POC Stool Occult Blood NEGATIVE Time Trough Drawn Vancomycin Trough COVID-19 Source COVID-19 (IGNACIA) Slides for Path Review Blood Type O POSITIVE Blood Type Confirm O POSITIVE Antibody Screen NEGATIVE Crossmatch See Detail 03/26/20 03/26/20 03/26/20 06:20 06:30 09:07 WBC 9.1 RBC 4.05 Hgb 8.1 L Hct 25.1 L MCV 62 L MCH 20.1 L MCHC 32.4 RDW 25.7 H Plt Count 188 Lymph % (Auto) Not Reportable Wilkinson % (Auto) Not Reportable Eos % (Auto) Not Reportable Baso % (Auto) Not Reportable Reticulocyte # Absolute Neuts (auto) Not Reportable Absolute Lymphs (auto) Not Reportable Absolute Monos (auto) Not Reportable Absolute Eos (auto) Not Reportable Absolute Basos (auto) Not Reportable Total Counted 100 Seg Neutrophils % Not Reportable Seg Neuts % (Manual) 91 H Band Neutrophils % 3 Lymphocytes % (Manual) 1 L Atypical Lymphs % 1 Monocytes % (Manual) 3 Eosinophils % (Manual) 1 Basophils % (Manual) 0 Abs Neuts (Manual) 8.6 H Abs Lymphs (Manual) 0.2 L Abs Monocytes (Manual) 0.3 Absolute Eos (Manual) 0.1 Abs Basophils (Manual) 0.0 Toxic Granulation 1+ Toxic Vacuolation PRESENT Platelet Comment ADEQUATE Polychromasia SLIGHT Hypochromasia 2+ Poikilocytosis SLIGHT Anisocytosis 3+ Microcytosis 3+ Target Cells Tear Drop Cells SLIGHT Ovalocytes Robert Cells Schistocytes Retic Count (auto) PT INR APTT Sodium Potassium Chloride Carbon Dioxide Anion Gap BUN Creatinine Est GFR ( Amer) Est GFR (MDRD) Non-Af Glucose POC Glucose Lactic Acid Calcium Magnesium Iron TIBC Iron Saturation Ferritin Total Bilirubin Direct Bilirubin Neonat Total Bilirubin Neonat Direct Bilirubin Neonat Indirect Bili AST ALT Alkaline Phosphatase Troponin I 0.018 NT-Pro-B Natriuret Pep Total Protein Albumin Lipase Carcinoembryonic Ag Vitamin B12 Folate TSH Free T4 Thyroxine (T4) Free T3 pg/mL Urine Color Urine Appearance Urine pH Ur Specific [place] Urine Protein Urine Glucose (UA) Urine Ketones Urine Blood Urine Nitrite Urine Bilirubin Urine Urobilinogen Ur Leukocyte Esterase Urine WBC (Auto) Urine RBC (Auto) Squamous Epi Cells Auto Urine Mucus (Auto) Urine Ascorbic Acid POC Stool Occult Blood Time Trough Drawn Vancomycin Trough COVID-19 Source NASOPHARYNGEAL COVID-19 (IGNACIA) NOT DETECTED Slides for Path Review Blood Type Blood Type Confirm Antibody Screen Crossmatch 03/26/20 03/26/20 03/27/20 21:38 21:38 04:50 WBC 6.8 RBC 3.86 Hgb 7.7 L Hct 23.9 L MCV 62 L MCH 19.9 L MCHC 32.2 RDW 25.1 H Plt Count 148 L Lymph % (Auto) Not Reportable Wilkinson % (Auto) Not Reportable Eos % (Auto) Not Reportable Baso % (Auto) Not Reportable Reticulocyte # 0.053 Absolute Neuts (auto) Not Reportable Absolute Lymphs (auto) Not Reportable Absolute Monos (auto) Not Reportable Absolute Eos (auto) Not Reportable Absolute Basos (auto) Not Reportable Total Counted 100 Seg Neutrophils % Not Reportable Seg Neuts % (Manual) 77 Band Neutrophils % 1 L Lymphocytes % (Manual) 13 Atypical Lymphs % Monocytes % (Manual) 5 Eosinophils % (Manual) 4 Basophils % (Manual) 0 Abs Neuts (Manual) 5.3 Abs Lymphs (Manual) 0.9 Abs Monocytes (Manual) 0.3 Absolute Eos (Manual) 0.3 Abs Basophils (Manual) 0.0 Toxic Granulation Toxic Vacuolation Platelet Comment DECREASED Polychromasia Hypochromasia Poikilocytosis Anisocytosis 3+ Microcytosis 3+ Target Cells Tear Drop Cells Ovalocytes 1+ Robert Cells 2+ Schistocytes SLIGHT Retic Count (auto) 1.29 PT INR APTT Sodium Potassium Chloride Carbon Dioxide Anion Gap BUN Creatinine Est GFR ( Amer) Est GFR (MDRD) Non-Af Glucose POC Glucose Lactic Acid Calcium Magnesium Iron < 10.1 L TIBC 322 Iron Saturation UNABLE TO CALCULATE Ferritin 68.10 Total Bilirubin Direct Bilirubin Neonat Total Bilirubin Neonat Direct Bilirubin Neonat Indirect Bili AST ALT Alkaline Phosphatase Troponin I NT-Pro-B Natriuret Pep Total Protein Albumin Lipase Carcinoembryonic Ag Vitamin B12 548.0 Folate 8.82 TSH Free T4 Thyroxine (T4) Free T3 pg/mL Urine Color Urine Appearance Urine pH Ur Specific [place] Urine Protein Urine Glucose (UA) Urine Ketones Urine Blood Urine Nitrite Urine Bilirubin Urine Urobilinogen Ur Leukocyte Esterase Urine WBC (Auto) Urine RBC (Auto) Squamous Epi Cells Auto Urine Mucus (Auto) Urine Ascorbic Acid POC Stool Occult Blood Time Trough Drawn Vancomycin Trough COVID-19 Source COVID-19 (IGNACIA) Slides for Path Review Blood Type Blood Type Confirm Antibody Screen Crossmatch 03/27/20 03/27/20 03/27/20 04:50 04:50 16:50 WBC 9.2 RBC 4.64 Hgb 10.0 L D Hct 30.6 L MCV 66 L D MCH 21.5 L MCHC 32.6 RDW 27.1 H Plt Count 211 Lymph % (Auto) Not Reportable Wilkinson % (Auto) Not Reportable Eos % (Auto) Not Reportable Baso % (Auto) Not Reportable Reticulocyte # Absolute Neuts (auto) Not Reportable Absolute Lymphs (auto) Not Reportable Absolute Monos (auto) Not Reportable Absolute Eos (auto) Not Reportable Absolute Basos (auto) Not Reportable Total Counted 100 Seg Neutrophils % Not Reportable Seg Neuts % (Manual) 82 H Band Neutrophils % Lymphocytes % (Manual) 7 L Atypical Lymphs % 1 Monocytes % (Manual) 4 Eosinophils % (Manual) 5 Basophils % (Manual) 1 Abs Neuts (Manual) 7.5 Abs Lymphs (Manual) 0.7 Abs Monocytes (Manual) 0.4 Absolute Eos (Manual) 0.5 Abs Basophils (Manual) 0.1 Toxic Granulation 1+ Toxic Vacuolation Platelet Comment ADEQUATE Polychromasia SLIGHT Hypochromasia SLIGHT Poikilocytosis 1+ Anisocytosis 2+ Microcytosis 2+ Target Cells Tear Drop Cells SLIGHT Ovalocytes SLIGHT [place] Cells SLIGHT Schistocytes SLIGHT Retic Count (auto) PT INR APTT Sodium 129.1 L Potassium 3.0 L* Chloride 104 Carbon Dioxide 18 L Anion Gap 7 BUN 11 Creatinine 0.58 Est GFR ( Amer) > 60 Est GFR (MDRD) Non-Af > 60 Glucose 97 POC Glucose Lactic Acid Calcium 7.3 L Magnesium 1.8 Iron TIBC Iron Saturation Ferritin Total Bilirubin 2.5 H Direct Bilirubin 2.2 H Neonat Total Bilirubin Not Reportable Neonat Direct Bilirubin Not Reportable Neonat Indirect Bili Not Reportable AST 95 H ALT 47 H Alkaline Phosphatase 164 H Troponin I NT-Pro-B Natriuret Pep Total Protein 5.1 L Albumin 2.4 L Lipase Carcinoembryonic Ag Vitamin B12 Folate TSH Free T4 Thyroxine (T4) Free T3 pg/mL Urine Color Urine Appearance Urine pH Ur Specific [place] Urine Protein Urine Glucose (UA) Urine Ketones Urine Blood Urine Nitrite Urine Bilirubin Urine Urobilinogen Ur Leukocyte Esterase Urine WBC (Auto) Urine RBC (Auto) Squamous Epi Cells Auto Urine Mucus (Auto) Urine Ascorbic Acid POC Stool Occult Blood Time Trough Drawn Vancomycin Trough COVID-19 Source COVID-19 (IGNACIA) Slides for Path Review Blood Type Blood Type Confirm Antibody Screen Crossmatch 03/28/20 03/28/20 03/28/20 12:05 12:05 12:05 WBC 7.8 RBC 4.73 Hgb 10.2 L Hct 31.0 L MCV 66 L MCH 21.5 L MCHC 32.9 RDW 27.1 H Plt Count 208 Lymph % (Auto) 6.2 L Wilkinson % (Auto) 7.4 Eos % (Auto) 2.8 Baso % (Auto) 0.5 Reticulocyte # Absolute Neuts (auto) 6.5 Absolute Lymphs (auto) 0.5 Absolute Monos (auto) 0.6 Absolute Eos (auto) 0.2 Absolute Basos (auto) 0.0 Total Counted Seg Neutrophils % 83.1 H Seg Neuts % (Manual) Band Neutrophils % Lymphocytes % (Manual) Atypical Lymphs % Monocytes % (Manual) Eosinophils % (Manual) Basophils % (Manual) Abs Neuts (Manual) Abs Lymphs (Manual) Abs Monocytes (Manual) Absolute Eos (Manual) Abs Basophils (Manual) Toxic Granulation Toxic Vacuolation Platelet Comment ADEQUATE Polychromasia SLIGHT Hypochromasia 2+ Poikilocytosis 1+ Anisocytosis 3+ Microcytosis 3+ Target Cells SLIGHT Tear Drop Cells SLIGHT Ovalocytes 1+ Robert Cells Schistocytes Retic Count (auto) PT INR APTT Sodium 134.0 L Potassium 3.5 L Chloride 109 H Carbon Dioxide 18 L Anion Gap 7 BUN 5 L Creatinine 0.54 Est GFR ( Amer) > 60 Est GFR (MDRD) Non-Af > 60 Glucose 117 H POC Glucose Lactic Acid Calcium 7.7 L Magnesium 1.9 Iron TIBC Iron Saturation Ferritin Total Bilirubin 3.7 H Direct Bilirubin 3.3 H Neonat Total Bilirubin Not Reportable Neonat Direct Bilirubin Not Reportable Neonat Indirect Bili Not Reportable AST 113 H ALT 74 H Alkaline Phosphatase 283 H Troponin I NT-Pro-B Natriuret Pep Total Protein 5.4 L Albumin 2.5 L Lipase Carcinoembryonic Ag Vitamin B12 Folate TSH 1.35 Free T4 2.12 Thyroxine (T4) Free T3 pg/mL 3.15 Urine Color Urine Appearance Urine pH Ur Specific [place] Urine Protein Urine Glucose (UA) Urine Ketones Urine Blood Urine Nitrite Urine Bilirubin Urine Urobilinogen Ur Leukocyte Esterase Urine WBC (Auto) Urine RBC (Auto) Squamous Epi Cells Auto Urine Mucus (Auto) Urine Ascorbic Acid POC Stool Occult Blood Time Trough Drawn Vancomycin Trough COVID-19 Source COVID-19 (IGNACIA) Slides for Path Review Blood Type Blood Type Confirm Antibody Screen Crossmatch 03/28/20 03/29/20 03/29/20 12:05 18:24 18:24 WBC RBC Hgb Hct MCV MCH MCHC RDW Plt Count Lymph % (Auto) [place] % (Auto) Eos % (Auto) Baso % (Auto) Reticulocyte # Absolute Neuts (auto) Absolute Lymphs (auto) Absolute Monos (auto) Absolute Eos (auto) Absolute Basos (auto) Total Counted Seg Neutrophils % Seg Neuts % (Manual) Band Neutrophils % Lymphocytes % (Manual) Atypical Lymphs % Monocytes % (Manual) Eosinophils % (Manual) Basophils % (Manual) Abs Neuts (Manual) Abs Lymphs (Manual) Abs Monocytes (Manual) Absolute Eos (Manual) Abs Basophils (Manual) Toxic Granulation Toxic Vacuolation Platelet Comment Polychromasia Hypochromasia Poikilocytosis Anisocytosis Microcytosis Target Cells Tear Drop Cells Ovalocytes [place] Cells Schistocytes Retic Count (auto) PT INR APTT Sodium Potassium Chloride Carbon Dioxide Anion Gap BUN Creatinine Est GFR ( Amer) Est GFR (MDRD) Non-Af Glucose POC Glucose Lactic Acid Calcium Magnesium Iron TIBC Iron Saturation Ferritin Total Bilirubin Direct Bilirubin Neonat Total Bilirubin Neonat Direct Bilirubin Neonat Indirect Bili AST ALT Alkaline Phosphatase Troponin I NT-Pro-B Natriuret Pep 07980 H Total Protein Albumin Lipase Carcinoembryonic Ag 1.87 Vitamin B12 Folate TSH Free T4 Thyroxine (T4) 6.5 Free T3 pg/mL Urine Color Urine Appearance Urine pH Ur Specific [place] Urine Protein Urine Glucose (UA) Urine Ketones Urine Blood Urine Nitrite Urine Bilirubin Urine Urobilinogen Ur Leukocyte Esterase Urine WBC (Auto) Urine RBC (Auto) Squamous Epi Cells Auto Urine Mucus (Auto) Urine Ascorbic Acid POC Stool Occult Blood Time Trough Drawn Vancomycin Trough COVID-19 Source COVID-19 (IGNACIA) Slides for Path Review Blood Type Blood Type Confirm Antibody Screen Crossmatch 03/30/20 03/30/20 03/31/20 09:41 15:41 20:53 WBC 8.2 RBC 4.64 Hgb 9.9 L Hct 31.4 L MCV 68 L MCH 21.3 L MCHC 31.5 L RDW 27.6 H Plt Count 395 Lymph % (Auto) Not Reportable [place] % (Auto) Not Reportable Eos % (Auto) Not Reportable Baso % (Auto) Not Reportable Reticulocyte # Absolute Neuts (auto) Not Reportable Absolute Lymphs (auto) Not Reportable Absolute Monos (auto) Not Reportable Absolute Eos (auto) Not Reportable Absolute Basos (auto) Not Reportable Total Counted 100 Seg Neutrophils % Not Reportable Seg Neuts % (Manual) 75 Band Neutrophils % 2 L Lymphocytes % (Manual) 15 Atypical Lymphs % 1 Monocytes % (Manual) 5 Eosinophils % (Manual) 2 Basophils % (Manual) 0 Abs Neuts (Manual) 6.3 Abs Lymphs (Manual) 1.3 Abs Monocytes (Manual) 0.4 Absolute Eos (Manual) 0.2 Abs Basophils (Manual) 0.0 Toxic Granulation Toxic Vacuolation Platelet Comment ADEQUATE Polychromasia SLIGHT Hypochromasia SLIGHT Poikilocytosis SLIGHT Anisocytosis 3+ Microcytosis 2+ Target Cells SLIGHT Tear Drop Cells Ovalocytes SLIGHT Robert Cells Schistocytes Retic Count (auto) PT 17.3 H INR 1.39 APTT 47.1 H Sodium Potassium Chloride Carbon Dioxide Anion Gap BUN Creatinine Est GFR ( Amer) Est GFR (MDRD) Non-Af Glucose POC Glucose Lactic Acid Calcium Magnesium Iron TIBC Iron Saturation Ferritin Total Bilirubin Direct Bilirubin Neonat Total Bilirubin Neonat Direct Bilirubin Neonat Indirect Bili AST ALT Alkaline Phosphatase Troponin I NT-Pro-B Natriuret Pep Total Protein Albumin Lipase Carcinoembryonic Ag Vitamin B12 Folate TSH Free T4 Thyroxine (T4) Free T3 pg/mL Urine Color Urine Appearance Urine pH Ur Specific [place] Urine Protein Urine Glucose (UA) Urine Ketones Urine Blood Urine Nitrite Urine Bilirubin Urine Urobilinogen Ur Leukocyte Esterase Urine WBC (Auto) Urine RBC (Auto) Squamous Epi Cells Auto Urine Mucus (Auto) Urine Ascorbic Acid POC Stool Occult Blood Time Trough Drawn [id number] Vancomycin Trough 5.8 COVID-19 Source COVID-19 (IGNACIA) Slides for Path Review Blood Type Blood Type Confirm Antibody Screen Crossmatch 03/31/20 20:53 WBC RBC Hgb Hct MCV MCH MCHC RDW Plt Count Lymph % (Auto) [place] % (Auto) Eos % (Auto) Baso % (Auto) Reticulocyte # Absolute Neuts (auto) Absolute Lymphs (auto) Absolute Monos (auto) Absolute Eos (auto) Absolute Basos (auto) Total Counted Seg Neutrophils % Seg Neuts % (Manual) Band Neutrophils % Lymphocytes % (Manual) Atypical Lymphs % Monocytes % (Manual) Eosinophils % (Manual) Basophils % (Manual) Abs Neuts (Manual) Abs Lymphs (Manual) Abs Monocytes (Manual) Absolute Eos (Manual) Abs Basophils (Manual) Toxic Granulation Toxic Vacuolation Platelet Comment Polychromasia Hypochromasia Poikilocytosis Anisocytosis Microcytosis Target Cells Tear Drop Cells Ovalocytes Robert Cells Schistocytes Retic Count (auto) PT INR APTT Sodium 132.8 L Potassium 3.7 Chloride 104 Carbon Dioxide 20 L Anion Gap 9 BUN 5 L Creatinine 0.62 Est GFR ( Amer) > 60 Est GFR (MDRD) Non-Af > 60 Glucose 150 H POC Glucose Lactic Acid Calcium 8.0 L Magnesium Iron TIBC Iron Saturation Ferritin Total Bilirubin 1.2 Direct Bilirubin 0.8 H Neonat Total Bilirubin Not Reportable Neonat Direct Bilirubin Not Reportable Neonat Indirect Bili Not Reportable AST 34 ALT 49 H Alkaline Phosphatase 274 H Troponin I NT-Pro-B Natriuret Pep Total Protein 5.7 L Albumin 2.8 L Lipase Carcinoembryonic Ag Vitamin B12 Folate TSH Free T4 Thyroxine (T4) Free T3 pg/mL Urine Color Urine Appearance Urine pH Ur Specific [place] Urine Protein Urine Glucose (UA) Urine Ketones Urine Blood Urine Nitrite Urine Bilirubin Urine Urobilinogen Ur Leukocyte Esterase Urine WBC (Auto) Urine RBC (Auto) Squamous Epi Cells Auto Urine Mucus (Auto) Urine Ascorbic Acid POC Stool Occult Blood Time Trough Drawn Vancomycin Trough COVID-19 Source COVID-19 (IGNACIA) Slides for Path Review Blood Type Blood Type Confirm Antibody Screen Crossmatch Chest X-Ray 03/26/20 00:00 IMPRESSION: No acute abnormality is identified. Acute Abdomen Series 03/26/20 01:24 IMPRESSION: No acute cardiopulmonary process. Moderate gas and stool in the colon copyright 2011 [employer]- All Rights Reserved Abdomen/Pelvis CT 03/26/20 02:59 IMPRESSION: 1. No evidence of acute intra-abdominal or intrapelvic pathology. 2. There is no evidence of bowel obstruction. 3. Very small hiatal hernia. Chest CT 03/30/20 09:15 IMPRESSION: 1. Mild cardiomegaly and bilateral pleural effusions without evidence of pulmonary edema. 2. Nodular ground-glass opacities in the right lower lobe (image 49 of series 4 and 55 of series 4) that are nonspecific and could represent an infectious or inflammatory process. Impression/RECOMMENDATION. 1. Paroxysmal atrial fibrillation: Patient present in sinus rhythm. Patient on Eliquis. At present heart rate seems to be controlled. The patient's corrected Jose vas 2 score is 3 hence chronic anticoagulation is indicated. But needs a GI work-up to make sure that there is no increasing bleeding risk from GI bleeds. 2. Severe anemia seems to be iron deficiency. GI work-up in progress. Would strongly recommend that the patient have an inpatient GI work-up since the patient is being placed on Eliquis. 3. 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 Would recommend starting the patient on a beta-barrington and Entresto. 4. Abnormal LFTs secondary to alcohol abuse. 5. Moderate to severe mitral regurgitation. 6. Moderate to severe tricuspid regurgitation 7. Moderate pulmonary hypertension. 8. Left bundle branch block pattern. This is chronic. 9. History of alcohol abuse. Patient counseled to abstain from alcohol in the face of alcohol have been explained in detail. EKG reviewed. Medications adjusted. Medical decision making is of high complexity. 60 minutes spent as patient more than 50% time spent in direct patient care. Medical regimen and management plan discussed with attending provider on the case.
--- NOTE | 2020-04-01 21:17 | PDOC PROGRESS REPORT ---
Subjective Progress Note for:: 04/01/20 Subjective:: Patient seen by the bedside, scheduled for colonoscopy on Saturday, we will hold Eliquis anticoagulation for 2 to 3 days Reason For Visit: ANEMIA,BANDEMIA,FEVER Physical Exam Vital Signs: Temp Pulse Resp BP Pulse Ox 98.9 F 83 14 103/74 100 04/01/20 20:19 04/01/20 20:19 04/01/20 20:19 04/01/20 20:19 04/01/20 20:19 Intake & Output 03/31/20 04/01/20 04/02/20 06:59 06:59 06:59 Intake Total 1198 1238 720 Balance 1198 1238 720 Weight 57.1 kg 55.5 kg General appearance: PRESENT: no acute distress Eye exam: PRESENT: PERRLA Respiratory exam: PRESENT: clear to auscultation izzy Cardiovascular exam: PRESENT: +S1, +S2 GI/Abdominal exam: PRESENT: soft Neurological exam: PRESENT: alert Results Laboratory Results: 03/31/20 20:53 03/31/20 20:53 03/31/20 03/31/20 20:53 20:53 WBC 8.2 RBC 4.64 Hgb 9.9 L Hct 31.4 L MCV 68 L MCH 21.3 L MCHC 31.5 L RDW 27.6 H Plt Count 395 Seg Neutrophils % Not Reportable Sodium 132.8 L Potassium 3.7 Chloride 104 Carbon Dioxide 20 L Anion Gap 9 BUN 5 L Creatinine 0.62 Est GFR ( Amer) > 60 Glucose 150 H Calcium 8.0 L Total Bilirubin 1.2 AST 34 Alkaline Phosphatase 274 H Total Protein 5.7 L Albumin 2.8 L 03/26/20 03/26/20 03/29/20 01:04 06:30 18:24 Troponin I 0.017 0.018 NT-Pro-B Natriuret Pep [id number] H Impressions: Chest X-Ray 03/26/20 00:00 IMPRESSION: No acute abnormality is identified. Acute Abdomen Series 03/26/20 01:24 IMPRESSION: No acute cardiopulmonary process. Moderate gas and stool in the colon copyright 2011 [employer]- All Rights Reserved Abdomen/Pelvis CT 03/26/20 02:59 IMPRESSION: 1. No evidence of acute intra-abdominal or intrapelvic pathology. 2. There is no evidence of bowel obstruction. 3. Very small hiatal hernia. Chest CT 03/30/20 09:15 IMPRESSION: 1. Mild cardiomegaly and bilateral pleural effusions without evidence of pulmonary edema. 2. Nodular ground-glass opacities in the right lower lobe (image 49 of series 4 and 55 of series 4) that are nonspecific and could represent an infectious or inflammatory process. Assessment & Plan - Diagnosis (1) Iron deficiency anemia Qualifiers: Iron deficiency anemia type: chronic blood loss Qualified Code(s): D50.0 - Iron deficiency anemia secondary to blood loss (chronic) Is this a current diagnosis for this admission?: Yes Plan: Patient was seen by GI she will need to have colonoscopy before discharge (2) Atrial fibrillation with rapid ventricular response Is this a current diagnosis for this admission?: Yes Plan: Presently rate controlled, continue present treatment (3) Hyponatremia Is this a current diagnosis for this admission?: Yes (4) Fever Qualifiers: Fever type: unspecified Qualified Code(s): R50.9 - Fever, unspecified Is this a current diagnosis for this admission?: Yes (5) Cardiomyopathy, alcoholic Is this a current diagnosis for this admission?: Yes Plan: She has cardiomyopathy, history of alcohol abuse, heavy alcohol use, transthoracic cardiogram was done, the estimated ejection fraction 34%, consistent with cardiomyopathy most likely alcohol-related (6) Alcoholic liver disease Is this a current diagnosis for this admission?: Yes Plan: The liver enzymes consistent with alcohol liver disease, on direct questioning she admitted to heavy alcohol consumption. continue lorazepam preemptively to prevent alcohol withdrawal syndrome. continue thiamine and folic acid - Time Time Spent with patient: 25-34 minutes Level of Care: IMCU Medications reviewed and adjusted accordingly: Yes Anticipated discharge: Home Anticipated DC Timeframe: within 72 hours
[2020-04-02] MEDS: PANTOPRAZOLE SODIUM 40 MG TABLET.DR PO SCH (05:56)
[2020-04-02] MEDS: LORAZEPAM 0.5 MG TABLET PO SCH ×3 (05:56→22:21)
[2020-04-02] MEDS: SACUBITRIL/VALSARTAN 24 MG/26 MG TABLET PO SCH ×2 (09:59→17:29)
[2020-04-02] MEDS: METOPROLOL SUCCINATE 50 MG TAB.SR.24H PO SCH (09:59)
[2020-04-02] MEDS: THIAMINE HCL 100 MG TABLET PO SCH (09:59)
[2020-04-02] MEDS: FOLIC ACID 1 MG TABLET PO SCH (10:00)
--- NOTE | 2020-04-02 14:39 | Progress Note ---
Provider Note Provider Note: CARDIOLOGY PROGRESS NOTE by Dr. Marianna Tejada on 04/02/2020 SUBJECTIVE: The patient is sitting up in the chair. She has no complaints. She denies any chest pain or discomfort. There is no shortness of breath. There is no PND orthopnea or leg edema. She remains in sinus rhythm. There is no recurrence of atrial fibrillation or flutter. There is no ventricle arrhythmia seen on the monitor. There is no further evidence of active bleeding. The patient's Eliquis has been held since the patient is going to have a endoscopic GI work-up to assess for GI source of anemia on Saturday. PHYSICAL EXAMINATION: The patient is well-built in no acute distress. Selected Entries 04/02/20 11:08 Temperature 97.5 F Temperature Oral Source Pulse Rate 71 Respiratory 18 Rate Blood Pressure 134/59 H Blood Pressure 84 Mean BP Location Right Arm BP Position Supine O2 Sat by Pulse 100 Oximetry Oxygen Delivery Room Air Method HEAD:: Is atraumatic normocephalic EYES: Pupils equal round regular reactive light accommodation. Extraocular movements are normal. There is no conjunctival pallor. There is no scleral icterus. EARS: Tympanic membranes are intact. External auditory canals canals are clear. NOSE: There is no deviated nasal septum. There is no inflammation of the nasal mucous membrane. NOSE: There is no deviated nasal septum. There is no inflammation of the nasal mucous membrane. MOUTH: Mucous membranes of the mouth are moist. Tongue is moist. THROAT: There is no redness of the oropharynx. There is no exudates. SKIN: There is no skin rashes. There is no petechia or ecchymosis. There is no skin lesions. NECK: Supple. There is no JVD. Carotids are equal there is no bruit there is no lymphadenopathy. There is no goiter. LUNGS: Trachea central lungs are clear to auscultation percussion. There is no chest wall tenderness. Heart HEART: S1-S2 is heard. There is no S3 gallop. There is no S4 gallop. There is systolic murmur of mitral regurgitation and tricuspid regurgitation present. There is no rub. ABDOMEN: Soft. Nontender there is no paraspinal megaly. Bowel sounds are well heard. EXTREMITIES: Femorals are well felt. Leg pulses well felt. There is no pedal edema. There is no DVT or cellulitis. There is no cyanosis or clubbing. Capillary refill is normal. There is no calf tenderness. 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 PSYCHIATRIC: The patient judgment site are intact his affect is normal. Chest X-Ray 03/26/20 00:00 IMPRESSION: No acute abnormality is identified. Acute Abdomen Series 03/26/20 01:24 IMPRESSION: No acute cardiopulmonary process. Moderate gas and stool in the colon copyright 2011 [employer]- All Rights Reserved Abdomen/Pelvis CT 03/26/20 02:59 IMPRESSION: 1. No evidence of acute intra-abdominal or intrapelvic pathology. 2. There is no evidence of bowel obstruction. 3. Very small hiatal hernia. Chest CT 03/30/20 09:15 IMPRESSION: 1. Mild cardiomegaly and bilateral pleural effusions without evidence of pulmonary edema. 2. Nodular ground-glass opacities in the right lower lobe (image 49 of series 4 and 55 of series 4) that are nonspecific and could represent an infectious or inflammatory process. Impression/RECOMMENDATION. 1. Paroxysmal atrial fibrillation: Patient present in sinus rhythm. Patient on Eliquis. At present heart rate seems to be controlled. The patient's corrected Jose vas 2 score is 3 hence chronic anticoagulation is indicated. But needs a GI work-up to make sure that there is no increasing bleeding risk from GI bleeds. 2. Severe anemia seems to be iron deficiency. GI work-up in progress. Would strongly recommend that the patient have an inpatient GI work-up since the patient is being placed on Eliquis. 3. 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 Would recommend starting the patient on a beta-barrington and Entresto. 4. Abnormal LFTs secondary to alcohol abuse. 5. Moderate to severe mitral regurgitation. 6. Moderate to severe tricuspid regurgitation 7. Moderate pulmonary hypertension. 8. History of alcohol abuse. Patient counseled to abstain from alcohol in the face of alcohol have been explained in detail. EKG reviewed. Medications adjusted. Medical decision making is of high complexity. 60 minutes spent as patient more than 50% time spent in direct patient care. Medical regimen and management plan discussed with attending provider on the case. 7.
--- NOTE | 2020-04-02 15:23 | PDOC PROGRESS REPORT ---
Subjective Progress Note for:: 04/02/20 Subjective:: Patient seen by the bedside, she is scheduled for colonoscopy on Saturday, Elilalais on hold for now Reason For Visit: ANEMIA,BANDEMIA,FEVER Physical Exam Vital Signs: Temp Pulse Resp BP Pulse Ox 97.5 F 71 18 134/59 H 100 04/02/20 11:08 04/02/20 11:08 04/02/20 11:08 04/02/20 11:08 04/02/20 11:08 Intake & Output 04/01/20 04/02/20 04/03/20 06:59 06:59 06:59 Intake Total 1238 720 450 Balance 1238 720 450 Weight 55.5 kg 55.6 kg General appearance: PRESENT: no acute distress Eye exam: PRESENT: PERRLA Respiratory exam: PRESENT: clear to auscultation izzy Cardiovascular exam: PRESENT: +S1, +S2 GI/Abdominal exam: PRESENT: soft Neurological exam: PRESENT: alert, CN II-XII grossly intact Results Laboratory Results: 03/31/20 20:53 03/31/20 20:53 03/26/20 03/26/20 03/29/20 01:04 06:30 18:24 Troponin I 0.017 0.018 NT-Pro-B Natriuret Pep [id number] H Impressions: Chest X-Ray 03/26/20 00:00 IMPRESSION: No acute abnormality is identified. Acute Abdomen Series 03/26/20 01:24 IMPRESSION: No acute cardiopulmonary process. Moderate gas and stool in the colon copyright 2011 [email or web address]- All Rights Reserved Abdomen/Pelvis CT 03/26/20 02:59 IMPRESSION: 1. No evidence of acute intra-abdominal or intrapelvic pathology. 2. There is no evidence of bowel obstruction. 3. Very small hiatal hernia. Chest CT 03/30/20 09:15 IMPRESSION: 1. Mild cardiomegaly and bilateral pleural effusions without evidence of pulmonary edema. 2. Nodular ground-glass opacities in the right lower lobe (image 49 of series 4 and 55 of series 4) that are nonspecific and could represent an infectious or inflammatory process. Assessment & Plan - Diagnosis (1) Iron deficiency anemia Qualifiers: Iron deficiency anemia type: chronic blood loss Qualified Code(s): D50.0 - Iron deficiency anemia secondary to blood loss (chronic) Is this a current diagnosis for this admission?: Yes Plan: Patient was seen by GI she will need to have colonoscopy before discharge (2) Atrial fibrillation with rapid ventricular response Is this a current diagnosis for this admission?: Yes Plan: Presently rate controlled, continue present treatment (3) Hyponatremia Is this a current diagnosis for this admission?: Yes (4) Fever Qualifiers: Fever type: unspecified Qualified Code(s): R50.9 - Fever, unspecified Is this a current diagnosis for this admission?: Yes (5) Cardiomyopathy, alcoholic Is this a current diagnosis for this admission?: Yes Plan: She has cardiomyopathy, history of alcohol abuse, heavy alcohol use, transthoracic cardiogram was done, the estimated ejection fraction 34%, consistent with cardiomyopathy most likely alcohol-related (6) Alcoholic liver disease Is this a current diagnosis for this admission?: Yes Plan: The liver enzymes consistent with alcohol liver disease, on direct questioning she admitted to heavy alcohol consumption. continue lorazepam preemptively to prevent alcohol withdrawal syndrome. continue thiamine and folic acid (7) Acute systolic heart failure Is this a current diagnosis for this admission?: Yes Plan: Continue Entresto, evidence-based beta-barrington, consult Dr. Barclay cardiology - Time Time Spent with patient: 25-34 minutes Level of Care: IMCU Medications reviewed and adjusted accordingly: Yes Anticipated discharge: Home Anticipated DC Timeframe: within 72 hours
[2020-04-03] MEDS: LORAZEPAM 0.5 MG TABLET PO SCH ×3 (05:46→21:17)
[2020-04-03] MEDS: PANTOPRAZOLE SODIUM 40 MG TABLET.DR PO SCH (05:46)
[2020-04-03] MEDS: FOLIC ACID 1 MG TABLET PO SCH (10:21)
[2020-04-03] MEDS: THIAMINE HCL 100 MG TABLET PO SCH (10:21)
[2020-04-03] MEDS: SACUBITRIL/VALSARTAN 24 MG/26 MG TABLET PO SCH ×2 (10:21→18:02)
[2020-04-03] MEDS: METOPROLOL SUCCINATE 50 MG TAB.SR.24H PO SCH (10:21)
[2020-04-03] MEDS ORDERED: PEG 3350/NA SULF,BICARB,CL/KCL 4000 ML PO ONE (12:00)
--- NOTE | 2020-04-03 12:20 | PDOC PROGRESS REPORT ---
Subjective Progress Note for:: 04/03/20 Subjective:: Patient seen by the bedside, she is scheduled for colonoscopy tomorrow, she is getting colon prep today in anticipation of colonoscopy tomorrow. Reason For Visit: ANEMIA,BANDEMIA,FEVER Physical Exam Vital Signs: Temp Pulse Resp BP Pulse Ox 98.7 F 86 17 125/56 L 100 04/03/20 08:00 04/03/20 08:00 04/03/20 08:00 04/03/20 08:00 04/03/20 08:00 Intake & Output 04/02/20 04/03/20 04/04/20 06:59 06:59 06:59 Intake Total 720 1530 Balance 720 1530 Weight 55.6 kg 53.9 kg General appearance: PRESENT: no acute distress Eye exam: PRESENT: PERRLA Respiratory exam: PRESENT: clear to auscultation izzy Cardiovascular exam: PRESENT: +S1, +S2 GI/Abdominal exam: PRESENT: soft Neurological exam: PRESENT: alert, CN II-XII grossly intact Results Laboratory Results: 03/31/20 20:53 03/31/20 20:53 03/26/20 03/26/20 03/29/20 01:04 06:30 18:24 Troponin I 0.017 0.018 NT-Pro-B Natriuret Pep [id number] H Impressions: Chest X-Ray 03/26/20 00:00 IMPRESSION: No acute abnormality is identified. Acute Abdomen Series 03/26/20 01:24 IMPRESSION: No acute cardiopulmonary process. Moderate gas and stool in the colon copyright 2011 [employer]- All Rights Reserved Abdomen/Pelvis CT 03/26/20 02:59 IMPRESSION: 1. No evidence of acute intra-abdominal or intrapelvic pathology. 2. There is no evidence of bowel obstruction. 3. Very small hiatal hernia. Chest CT 03/30/20 09:15 IMPRESSION: 1. Mild cardiomegaly and bilateral pleural effusions without evidence of pulmonary edema. 2. Nodular ground-glass opacities in the right lower lobe (image 49 of series 4 and 55 of series 4) that are nonspecific and could represent an infectious or inflammatory process. Assessment & Plan - Diagnosis (1) Iron deficiency anemia Qualifiers: Iron deficiency anemia type: chronic blood loss Qualified Code(s): D50.0 - Iron deficiency anemia secondary to blood loss (chronic) Is this a current diagnosis for this admission?: Yes Plan: She has iron deficiency anemia no history of colonoscopy, patient scheduled tomorrow for colonoscopy (2) Hyponatremia Is this a current diagnosis for this admission?: Yes (3) Fever Qualifiers: Fever type: unspecified Qualified Code(s): R50.9 - Fever, unspecified Is this a current diagnosis for this admission?: Yes (4) Cardiomyopathy, alcoholic Is this a current diagnosis for this admission?: Yes (5) Alcoholic liver disease Is this a current diagnosis for this admission?: Yes (6) Acute systolic heart failure Is this a current diagnosis for this admission?: Yes Plan: She has newly diagnosed acute systolic heart failure, most likely alcohol- related presently on Entresto, evidence-based beta-barrington metoprolol succinate (7) Paroxysmal atrial fibrillation with rapid ventricular response Is this a current diagnosis for this admission?: Yes Plan: Patient presently sinus rhythm rate control on Eliquis for CVA prophylaxis - Time Time Spent with patient: 35 or more minutes Level of Care: IMCU Medications reviewed and adjusted accordingly: Yes Anticipated discharge: Home Anticipated DC Timeframe: within 48 hours
[2020-04-03] MEDS: ACETAMINOPHEN 325 MG TABLET PO PRN (13:52)
--- NOTE | 2020-04-03 14:57 | Progress Note ---
Provider Note Provider Note: CARDIOLOGY PROGRESS NOTE by Dr. Marianna Tejada on 04/02/2020 SUBJECTIVE: The patient is sitting up in the chair. She has no complaints. She denies any chest pain or discomfort. There is no shortness of breath. There is no PND orthopnea or leg edema. She remains in sinus rhythm. There is no r ecurrence of atrial fibrillation or flutter. There is no ventricle arrhythmia seen on the monitor. There is no further evidence of active bleeding. The patient's Eliquis has been held since the patient is going to have a endoscopic GI work-up to assess for GI source of anemia on Saturday. PHYSICAL EXAMINATION: The patient is well-built in no acute distress. Selected Entries 04/03/20 10:54 Temperature 98.0 F Temperature Oral Source Pulse Rate 81 Respiratory 19 Rate Blood Pressure 120/57 L Blood Pressure 78 Mean BP Location Right Arm BP Position Supine O2 Sat by Pulse 100 Oximetry Oxygen Delivery Room Air Method HEAD:: Is atraumatic normocephalic EYES: Pupils equal round regular reactive light accommodation. Extraocular movements are normal. There is no conjunctival pallor. There is no scleral icterus. EARS: Tympanic membranes are intact. External auditory canals canals are clear. NOSE: There is no deviated nasal septum. There is no inflammation of the nasal mucous membrane. NOSE: There is no deviated nasal septum. There is no inflammation of the nasal mucous membrane. MOUTH: Mucous membranes of the mouth are moist. Tongue is moist. THROAT: There is no redness of the oropharynx. There is no exudates. SKIN: There is no skin rashes. There is no petechia or ecchymosis. There is no skin lesions. NECK: Supple. There is no JVD. Carotids are equal there is no bruit there is no lymphadenopathy. There is no goiter. LUNGS: Trachea central lungs are clear to auscultation percussion. There is no chest wall tenderness. Heart HEART: S1-S2 is heard. There is no S3 gallop. There is no S4 gallop. There is systolic murmur of mitral regurgitation and tricuspid regurgitation present. There is no rub. ABDOMEN: Soft. Nontender there is no paraspinal megaly. Bowel sounds are well heard. EXTREMITIES: Femorals are well felt. Leg pulses well felt. There is no pedal edema. There is no DVT or cellulitis. There is no cyanosis or clubbing. Capillary refill is normal. There is no calf tenderness. VEHICLE CARE SPECIALIST: The patient is conscious awake alert oriented x3 with no focal deficits. PSYCHIATRIC: The patient judgment site are intact his affect is normal. Chest X-Ray 03/26/20 00:00 IMPRESSION: No acute abnormality is identified. Acute Abdomen Series 03/26/20 01:24 IMPRESSION: No acute cardiopulmonary process. Moderate gas and stool in the colon copyright 2011 [employer]- All Rights Reserved Abdomen/Pelvis CT 03/26/20 02:59 IMPRESSION: 1. No evidence of acute intra-abdominal or intrapelvic pathology. 2. There is no evidence of bowel obstruction. 3. Very small hiatal hernia. Chest CT 03/30/20 09:15 IMPRESSION: 1. Mild cardiomegaly and bilateral pleural effusions without evidence of pulmonary edema. 2. Nodular ground-glass opacities in the right lower lobe (image 49 of series 4 and 55 of series 4) that are nonspecific and could represent an infectious or inflammatory process. Impression/RECOMMENDATION. 1. Paroxysmal atrial fibrillation: Patient present in sinus rhythm. Patient on Eliquis. At present heart rate seems to be controlled. The patient's corrected Jose vas 2 score is 3 hence chronic anticoagulation is indicated. But needs a GI work-up to make sure that there is no increasing bleeding risk from GI bleeds. 2. Severe anemia seems to be iron deficiency. GI work-up in progress. Would strongly recommend that the patient have an inpatient GI work-up since the patient is being placed on Eliquis. 3. 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 Would recommend starting the patient on a beta-barrington and Entresto. 4. Abnormal LFTs secondary to alcohol abuse. 5. Moderate to severe mitral regurgitation. 6. Moderate to severe tricuspid regurgitation 7. Moderate pulmonary hypertension. 8. History of alcohol abuse. Patient counseled to abstain from alcohol in the face of alcohol have been explained in detail. EKG reviewed. Medications adjusted. Medical decision making is of moderate complexity. 40 minutes spent as patient more than 50% time spent in direct patient care. Medical regimen and management plan discussed with attending provider on the case.
[2020-04-03] MEDS ORDERED: DEXTROSE 40% GEL 15 GM TUBE PO PRN ×2 (18:04)
[2020-04-03] MEDS ORDERED: DEXTROSE 50%-WATER 25 GM/50 ML DISP.SYRIN IV PRN ×2 (18:04)
[2020-04-03] MEDS ORDERED: GLUCAGON,HUMAN RECOMB 1 MG INJ SUBCUT PRN (18:04)
[2020-04-04] MEDS: PANTOPRAZOLE SODIUM 40 MG TABLET.DR PO SCH (05:15)
[2020-04-04] MEDS: LORAZEPAM 0.5 MG TABLET PO SCH ×2 (05:15→13:33)
[2020-04-04] MEDS: FOLIC ACID 1 MG TABLET PO SCH (09:29)
[2020-04-04] MEDS: THIAMINE HCL 100 MG TABLET PO SCH (09:29)
[2020-04-04] MEDS: METOPROLOL SUCCINATE 50 MG TAB.SR.24H PO SCH (09:29)
[2020-04-04] MEDS: SACUBITRIL/VALSARTAN 24 MG/26 MG TABLET PO SCH ×2 (09:30→18:01)
[2020-04-04 10:17] LABS: ANION GAP 10 (5-19); CALCIUM 8.5 mg/dL (8.4-10.2); CARBON DIOXIDE 21 mmol/L (22-30); CHLORIDE 106 mmol/L (98-107); GLUCOSE 91 mg/dL (75-110)
[2020-04-04 10:19] LABS: BLOOD UREA NITROGEN < 2 mg/dL (7-20)
[2020-04-04 10:30] LABS: ABSOLUTE BASOPHILS # (AUTO) 0.1 10^3/uL (0.0-0.2); ABSOLUTE EOSINOPHILS # (AUTO) 0.3 10^3/uL (0.0-0.6); ABSOLUTE MONOCYTES (AUTO) 0.4 10^3/uL (0.1-1.4); ABSOLUTE NEUT (AUTO) 4.8 10^3/uL (1.7-8.2); BASOPHILS % (AUTO) 1.3 % (0-2); HEMATOCRIT 32.4 % (36.0-47.0); HEMOGLOBIN 10.5 g/dL (12.0-15.5); LYMPHOCYTES % (AUTO) 15.4 % (13-45); MEAN CORPUSCULAR HEMOGLOBIN 22.6 pg (27.0-33.4); MEAN CORPUSCULAR HGB CONC 32.5 g/dL (32.0-36.0); MEAN CORPUSCULAR VOLUME 70 fl (80-97); MONOCYTES % (AUTO) 6.2 % (3-13); PLATELET COUNT 541 10^3/uL (150-450); RED BLOOD COUNT 4.66 10^6/uL (3.72-5.28); RED CELL DISTRIBUTION WIDTH 29.1 % (11.5-14.0); SEGMENTED NEUTROPHILS % (AUTO) 73.1 % (42-78); TOTAL CELLS COUNTED % (AUTO) 100 %; WHITE BLOOD COUNT 6.6 10^3/uL (4.0-10.5)
[2020-04-04 11:05] LABS: ANISOCYTOSIS 4+
[2020-04-04 11:06] LABS: HYPOCHROMASIA SLIGHT; OVALOCYTES SLIGHT; POIKILOCYTOSIS SLIGHT; POLYCHROMASIA SLIGHT
[2020-04-04 11:07] LABS: PLATELET COMMENT INCREASED; TARGET CELLS SLIGHT
[2020-04-04] MEDS ORDERED: PROPOFOL INJ 200 MG/20 ML VIAL IV ONE (11:16)
[2020-04-04] MEDS ORDERED: MORPHINE SULFATE 10 MG/ML INJ IV PRN (12:10)
[2020-04-04] MEDS ORDERED: DIPHENHYDRAMINE HCL 50 MG/ML VIAL IV PRN (12:10)
[2020-04-04] MEDS ORDERED: FENTANYL CITRATE INJ/PF 100 MCG/2 ML AMPUL IV PRN ×3 (12:10)
[2020-04-04] MEDS ORDERED: PROMETHAZINE HCL INJ 25 MG/1 ML VIAL IV PRN ×2 (12:10)
[2020-04-04] MEDS ORDERED: MEPERIDINE HCL/PF INJ 25 MG/1 ML DISP.SYRIN IV PRN (12:10)
--- NOTE | 2020-04-04 12:38 | Operative Report ---
Operative Report DATE OF SURGERY: 04/04/20 Operative Report: The risk, benefits and alternatives of the procedure including the risk of bleeding, perforation requiring surgery have been explained to the patient in detail and informed consent has been obtained. Patient is taken down to the operating room placed in a left, lateral decubital position. Timeout was called. Propofol medication is administered. Rectal examination is done which did not reveal any masses, tears or fissures. An Olympus videoscope was in troduced into the patient's rectum and carefully advanced all the way to the cecum. The cecum was identified by the usual anatomical landmarks including the ileocecal valve as well as the appendiceal office. Photodocumentation is obtained. Scope was then sequentially pulled back via the various segments of the colon including the ascending colon, hepatic flexure, transverse colon, splenic flexure, descending colon and finally into the rectosigmoid portions of the colon. Retroflexion maneuvers performed. The risks benefits and alternatives of the procedure explained to the patient in detail and informed consent is obtained.A GIF Olympus video scope was inserted into the patient's mouth and hypopharynx, the esophagus is identified intubated and insufflated ,the scope was then advanced through the esophagus stomach and duodenum ,retroflexion maneuver is done ,the esophagus stomach and first and second portions of the duodenum examined PREOPERATIVE DIAGNOSIS: Iron deficiency anemia rule out GI bleeding. Chronic diarrhea POSTOPERATIVE DIAGNOSIS: Gastritis with small shallow biopsy taken. inflammation status post biopsy. No overt signs of GI bleeding. OPERATION: Colonoscopy with biopsy. EGD with biopsy SURGEON: TRENTON ALCANTARA ANESTHESIA: LMAC TISSUE REMOVED OR ALTERED: As noted above. COMPLICATIONS: None. ESTIMATED BLOOD LOSS: None. INTRAOPERATIVE FINDINGS: As noted above. PROCEDURE: Patient tolerated the procedure well. No immediate postprocedure complications are noted. Patient is sent back to her room in good condition. Wait on biopsies. No overt GI bleeding is noted. Resume previous diet. Can be discharged. Does not need outpatient follow-up from the GI standpoint.
[2020-04-04 19:22] VITALS: BP 125/63
--- NOTE | 2020-04-04 20:02 | PDOC DISCHARGE SUMMARY ---
Impression - Admit/DC Date/PCP Admission Date/Primary Care Provider: 03/26/20 05:58 Discharge Date: 04/04/20 - Discharge Diagnosis (1) Acute systolic heart failure Is this a current diagnosis for this admission?: Yes (2) Paroxysmal atrial fibrillation with rapid ventricular response Is this a current diagnosis for this admission?: Yes (3) Iron deficiency anemia Is this a current diagnosis for this admission?: Yes (4) Hyponatremia Is this a current diagnosis for this admission?: Yes (5) Fever Is this a current diagnosis for this admission?: Yes (6) Cardiomyopathy, alcoholic Is this a current diagnosis for this admission?: Yes (7) Alcoholic liver disease Is this a current diagnosis for this admission?: Yes - Additional Information Resuscitation Status: Full Code Discharge Activity: Activity As Tolerated, Balance Activity w/Rest Referrals: CASSANDRA AYALA MD [ACTIVE STAFF] - 04/08/20 2:00 pm Prescriptions: Apixaban [Eliquis 5 mg Tablet] 5 mg PO BID #60 tablet Sacubitril/Valsartan [Entresto 24 mg/26 mg Tablet] 1 tab PO BID #60 tablet Folic Acid [Folvite 1 mg Tablet] 1 mg PO DAILY #90 tablet Thiamine HCl [Thiamine 100 mg Tablet] 100 mg PO DAILY #90 tablet Metoprolol Succinate [Toprol Xl 50 mg Tab.sr] 100 mg PO DAILY #90 tab.sr.24h Home Medications: Esomeprazole Magnesium [Nexium] 20 mg PO DAILY 03/26/20 Apixaban [Eliquis 5 mg Tablet] 5 mg PO BID #60 tablet 04/04/20 Folic Acid [Folvite 1 mg Tablet] 1 mg PO DAILY #90 tablet 04/04/20 Metoprolol Succinate [Toprol Xl 50 mg Tab.sr] 100 mg PO DAILY #90 tab.sr.24h 04/04/20 Sacubitril/Valsartan [Entresto 24 mg/26 mg Tablet] 1 tab PO BID #60 tablet 04/04/20 Thiamine HCl [Thiamine 100 mg Tablet] 100 mg PO DAILY #90 tablet 04/04/20 History of Present Illiness History of Present Illness: KIEL ADAMES is a 69 year old female patient who presented to the ED with 3 days history of nausea and vomiting and subsequent development of diarrhea a day prior to her presentation. She denied any associated abdominal pain. No tarry or black stool. No hematemesis or hematochexia. Patient denied any definite fever or chills prior to her presentation but reported development of fever while in the ED. She denied consumption of any unusual drink or food prior to onset of her symptoms. No associated dysuria, hematuria, frequency, or flank pain. She denied any coughing or chest pain. No headache or dizziness. She denied recent travel or exposure to sick individual. Her initial ED evaluation was significant for vitals suggestive of inflammatory process with tachycardia, tachypnea, elevated temperature, anemia, and significant leukocytosis with left shift and bandemia. She reported use of prescribed Bactrim and OTC Ibuprofen recently. She was advised hospitalization for further evaluation and management. Her morbidities are listed below. Hospital Course Hospital Course: Patient was admitted on 03/26/2024 evaluation of nausea, vomiting and diarrhea.Hospital course was eventful she developed paroxysmal atrial fibrillation with rapid regular response, rate control was initially achieved with intravenous Cardizem infusion, she was also started on p.o. Eliquis for CVA prophylaxis.The Cardizem infusion could not be optimized because of low blood pressure patient's heart rate remains elevated on Cardizem infusion at 10 mg/HR.This was transitioned to amiodarone with good response the atrial fibrillation spontaneously terminated to sinus rhythm. She also have iron deficiency anemia requiring blood transfusion, she was seen by GI she underwent colonoscopy and EGD which was normal. Patient serum aminotransferases was consistent with alcohol liver disease on direct questioning she admitted to heavy alcohol consumption she says she is trying to stop alcohol intake, she has reduced the number of cases she drinks on a daily basis.She was treated with p.o. thiamine, folic acid a 2D echo was done demonstrated ejection fraction of 25% of left ventricle.Patient was not overly CHF clinically she was started on Entresto ,evidence-based beta-barrington, consultation was requested from Dr. Barclay as a new onset CHF. The cardiomyopathy was felt to be alcohol-related cannot completely rule out ischemic heart disease, she will follow with Dr. Barclay outpatient for further evaluation to rule out ischemia.She was empirically treated with IV antibiotic for presumptive infection because of alcohol consumption there was no source of infection identified throughout hospital stay Physical Exam Vital Signs: Temp Pulse Resp BP Pulse Ox 97.8 F 63 19 125/63 96 04/04/20 19:20 04/04/20 19:20 04/04/20 19:20 04/04/20 19:20 04/04/20 19:20 Intake & Output 04/03/20 04/04/20 04/05/20 06:59 06:59 06:59 Intake Total 6088 379 6916 Output Total 0 Balance 1404 179 5258 Weight 53.9 kg 53.9 kg General appearance: PRESENT: no acute distress Eye exam: PRESENT: PERRLA Respiratory exam: PRESENT: clear to auscultation izzy Cardiovascular exam: PRESENT: +S1, +S2 GI/Abdominal exam: PRESENT: soft Neurological exam: PRESENT: alert, CN II-XII grossly intact Results Laboratory Results: WBC 6.6 10^3/uL (4.0-10.5) 04/04/20 10:15 RBC 4.66 10^6/uL (3.72-5.28) 04/04/20 10:15 Hgb 10.5 g/dL (12.0-15.5) L 04/04/20 10:15 Hct 32.4 % (36.0-47.0) L 04/04/20 10:15 MCV 70 fl (80-97) L 04/04/20 10:15 MCH 22.6 pg (27.0-33.4) L 04/04/20 10:15 MCHC 32.5 g/dL (32.0-36.0) 04/04/20 10:15 RDW 29.1 % (11.5-14.0) H 04/04/20 10:15 Plt Count 541 10^3/uL (150-450) H 04/04/20 10:15 Lymph % (Auto) 15.4 % (13-45) 04/04/20 10:15 Dare % (Auto) 6.2 % (3-13) 04/04/20 10:15 Eos % (Auto) 4.0 % (0-6) 04/04/20 10:15 Baso % (Auto) 1.3 % (0-2) 04/04/20 10:15 Reticulocyte # 0.053 10^6/uL (0.028-0.122) 03/26/20 21:38 Absolute Neuts (auto) 4.8 10^3/uL (1.7-8.2) 04/04/20 10:15 Absolute Lymphs (auto) 1.0 10^3/uL (0.5-4.7) 04/04/20 10:15 Absolute Monos (auto) 0.4 10^3/uL (0.1-1.4) 04/04/20 10:15 Absolute Eos (auto) 0.3 10^3/uL (0.0-0.6) 04/04/20 10:15 Absolute Basos (auto) 0.1 10^3/uL (0.0-0.2) 04/04/20 10:15 Total Counted 100 03/31/20 20:53 Seg Neutrophils % 73.1 % (42-78) 04/04/20 10:15 Seg Neuts % (Manual) 75 % (42-78) 03/31/20 20:53 Band Neutrophils % 2 % (3-5) L 03/31/20 20:53 Lymphocytes % (Manual) 15 % (13-45) 03/31/20 20:53 Atypical Lymphs % 1 % (0) 03/31/20 20:53 Monocytes % (Manual) 5 % (3-13) 03/31/20 20:53 Eosinophils % (Manual) 2 % (0-6) 03/31/20 20:53 Basophils % (Manual) 0 % (0-2) 03/31/20 20:53 Abs Neuts (Manual) 6.3 10^3/uL (1.7-8.2) 03/31/20 20:53 Abs Lymphs (Manual) 1.3 10^3/uL (0.5-4.7) 03/31/20 20:53 Abs Monocytes (Manual) 0.4 10^3/uL (0.1-1.4) 03/31/20 20:53 Absolute Eos (Manual) 0.2 10^3/uL (0.0-0.6) 03/31/20 20:53 Abs Basophils (Manual) 0.0 10^3/uL (0.0-0.2) 03/31/20 20:53 Toxic Granulation 1+ 03/27/20 16:50 Toxic Vacuolation PRESENT 03/26/20 09:07 Platelet Estimate Cancelled 04/04/20 09:21 Platelet Comment INCREASED 04/04/20 10:15 Polychromasia SLIGHT 04/04/20 10:15 Hypochromasia SLIGHT 04/04/20 10:15 Poikilocytosis SLIGHT 04/04/20 10:15 Anisocytosis 4+ 04/04/20 10:15 Microcytosis 2+ 04/04/20 10:15 Target Cells SLIGHT 04/04/20 10:15 Tear Drop Cells SLIGHT 03/28/20 12:05 Ovalocytes SLIGHT 04/04/20 10:15 [place] Cells SLIGHT 03/27/20 16:50 Schistocytes SLIGHT 03/27/20 16:50 Retic Count (auto) 1.29 % (0.66-2.85) 03/26/20 21:38 PT 17.3 SEC (11.4-15.4) H 03/30/20 15:41 INR 1.39 03/30/20 15:41 APTT 47.1 SEC (23.5-35.8) H 03/30/20 15:41 Sodium 137.1 mmol/L (137-145) 04/04/20 09:21 Potassium 4.0 mmol/L (3.6-5.0) 04/04/20 09:21 Chloride 106 mmol/L (98-107) 04/04/20 09:21 Carbon Dioxide 21 mmol/L (22-30) L 04/04/20 09:21 Anion Gap 10 (5-19) 04/04/20 09:21 BUN < 2 mg/dL (7-20) L 04/04/20 09:21 Creatinine 0.39 mg/dL (0.52-1.25) L 04/04/20 09:21 Est GFR ( Amer) > 60 (>60) 04/04/20 09:21 Est GFR (MDRD) Non-Af > 60 (>60) 04/04/20 09:21 Glucose 91 mg/dL (75-110) 04/04/20 09:21 POC Glucose 151 mg/dL (70-110) H 03/25/20 20:41 Lactic Acid 1.6 mmol/L (0.7-2.1) 03/26/20 01:04 Calcium 8.5 mg/dL (8.4-10.2) 04/04/20 09:21 Magnesium 1.9 mg/dL (1.6-2.3) 03/28/20 12:05 Iron < 10.1 ug/dL (37-170) L 03/26/20 21:38 TIBC 322 ug/dL (250-450) 03/26/20 21:38 Iron Saturation UNABLE TO CALCULATE % (15% - 50%) 03/26/20 21:38 Ferritin 68.10 ng/mL (11.1-264.0) 03/26/20 21:38 Total Bilirubin 1.2 mg/dL (0.2-1.3) 03/31/20 20:53 Direct Bilirubin 0.8 mg/dL (0.0-0.4) H 03/31/20 20:53 Neonat Total Bilirubin Not Reportable 03/31/20 20:53 Neonat Direct Bilirubin Not Reportable 03/31/20 20:53 Neonat Indirect Bili Not Reportable 03/31/20 20:53 AST 34 U/L (14-36) 03/31/20 20:53 ALT 49 U/L (<35) H 03/31/20 20:53 Alkaline Phosphatase 274 U/L (38-126) H 03/31/20 20:53 Troponin I 0.018 ng/mL 03/26/20 06:30 NT-Pro-B Natriuret Pep 98723 pg/mL (<125) H 03/29/20 18:24 Total Protein 5.7 g/dL (6.3-8.2) L 03/31/20 20:53 Albumin 2.8 g/dL (3.5-5.0) L 03/31/20 20:53 Lipase 18.0 U/L (23-300) L 03/26/20 01:04 Carcinoembryonic Ag 1.87 ng/mL (<3.0) 03/29/20 18:24 Vitamin B12 548.0 pg/mL (239-931) 03/26/20 21:38 Folate 8.82 ng/mL (>2.76) 03/26/20 21:38 TSH 1.35 uIU/mL (0.47-4.68) 03/28/20 12:05 Free T4 2.12 ng/dL (0.78-2.19) 03/28/20 12:05 Thyroxine (T4) 6.5 ug/dL (4.5-12.0) 03/28/20 12:05 Free T3 pg/mL 3.15 pg/mL (2.77-5.27) 03/28/20 12:05 Urine Color YELLOW 03/26/20 02:40 Urine Appearance CLEAR 03/26/20 02:40 Urine pH 6.0 (5.0-9.0) 03/26/20 02:40 Ur Specific Universal 1.008 03/26/20 02:40 Urine Protein NEGATIVE mg/dL (NEGATIVE) 03/26/20 02:40 Urine Glucose (UA) NEGATIVE mg/dL (NEGATIVE) 03/26/20 02:40 Urine Ketones NEGATIVE mg/dL (NEGATIVE) 03/26/20 02:40 Urine Blood NEGATIVE (NEGATIVE) 03/26/20 02:40 Urine Nitrite NEGATIVE (NEGATIVE) 03/26/20 02:40 Urine Bilirubin NEGATIVE (NEGATIVE) 03/26/20 02:40 Urine Urobilinogen 4.0 mg/dL (<2.0) H 03/26/20 02:40 Ur Leukocyte Esterase NEGATIVE (NEGATIVE) 03/26/20 02:40 Urine WBC (Auto) 1 /HPF 03/26/20 02:40 Urine RBC (Auto) 1 /HPF 03/26/20 02:40 Squamous Epi Cells Auto <1 /HPF 03/26/20 02:40 Urine Mucus (Auto) RARE /LPF 03/26/20 02:40 Urine Ascorbic Acid NEGATIVE (NEGATIVE) 03/26/20 02:40 POC Stool Occult Blood NEGATIVE (NEGATIVE) 03/26/20 03:06 Time Trough Drawn 0941 03/30/20 09:41 Vancomycin Trough 5.8 ug/mL (5.0-20.0) 03/30/20 09:41 COVID-19 Source NASOPHARYNGEAL 03/26/20 06:20 COVID-19 (IGNACIA) NOT DETECTED 03/26/20 06:20 Slides for Path Review Cancelled 04/04/20 09:21 Blood Type O POSITIVE 03/26/20 03:05 Blood Type Confirm O POSITIVE 03/26/20 03:45 Antibody Screen NEGATIVE 03/26/20 03:05 Crossmatch See Detail 03/26/20 03:05 03/26/20 03/26/20 03/29/20 01:04 06:30 18:24 Troponin I 0.017 0.018 NT-Pro-B Natriuret Pep 31617 H Impressions: Chest X-Ray 03/26/20 00:00 IMPRESSION: No acute abnormality is identified. Acute Abdomen Series 03/26/20 01:24 IMPRESSION: No acute cardiopulmonary process. Moderate gas and stool in the colon copyright 2011 [employer]- All Rights Reserved Abdomen/Pelvis CT 03/26/20 02:59 IMPRESSION: 1. No evidence of acute intra-abdominal or intrapelvic pathology. 2. There is no evidence of bowel obstruction. 3. Very small hiatal hernia. Chest CT 03/30/20 09:15 IMPRESSION: 1. Mild cardiomegaly and bilateral pleural effusions without evidence of pulmonary edema. 2. Nodular ground-glass opacities in the right lower lobe (image 49 of series 4 and 55 of series 4) that are nonspecific and could represent an infectious or inflammatory process. Stroke Is this a Stroke Patient?: No Acute Heart Failure Is this a Heart Failure Patient?: Yes Documentation of LVEF assessment?: Yes LVEF: LVEF Less Than or Equal to 35% Anticoagulant Therapy: Yes Discharged on Evidence-Based Beta Blockers: Yes Discharged on ARNI?: Yes Discharged on ARB?: N/A-Discharged on ARNI Discharged on ACEI?: N/A Discharged on ARNI For LVEF <35%, discharged on Aldosterone Antagonist?: N/A (LVEF > or = 35%) Follow-up Appointment scheduled within 7 days?: Yes
--- NOTE | 2020-04-19 16:40 | Progress Note ---
Provider Note Provider Note: procedure done over 2 weeks ago, unfortunately cannot provide answer to question since I no longer remember.
== END 2020-04-04 19:40 | disposition home or self-care (01) | DRG 391 ==
LOC: ER 20:38 → EH 03-26 05:58 → 3W 03-26 08:12 → 5 03-27 09:09
PROVIDERS: ADMIT Internal Medicine Geriatric Medicine; ATTEND Internal Medicine
PROC: 30233N1 Transfusion of Nonautologous Red Blood Cells into Peripheral Vein, Percutaneous Approach (ICD-10-PCS; 2020-03-26)
PROC: 0DB68ZX Excision of Stomach, Via Natural or Artificial Opening Endoscopic, Diagnostic (ICD-10-PCS; principal; 2020-04-04 11:15)
PROC: 0DJD8ZZ Inspection of Lower Intestinal Tract, Via Natural or Artificial Opening Endoscopic (ICD-10-PCS; 2020-04-04 11:15)
DX: K52.9 Noninfective gastroenteritis and colitis, unspecified (principal); I50.21 Acute systolic (congestive) heart failure; E87.1 Hypo-osmolality and hyponatremia; I42.6 Alcoholic cardiomyopathy; I48.0 Paroxysmal atrial fibrillation; K70.9 Alcoholic liver disease, unspecified; I08.1 Rheumatic disorders of both mitral and tricuspid valves; F32.9 Major depressive disorder, single episode, unspecified; I27.20 Pulmonary hypertension, unspecified; D50.0 Iron deficiency anemia secondary to blood loss (chronic); Z60.2 Problems related to living alone; K29.70 Gastritis, unspecified, without bleeding; R06.2 Wheezing; R50.9 Fever, unspecified; R92.8 Other abnormal and inconclusive findings on diagnostic imaging of breast; I44.7 Left bundle-branch block, unspecified; Z20.828 Contact with and (suspected) exposure to other viral communicable diseases; Z79.899 Other long term (current) drug therapy; Z79.01 Long term (current) use of anticoagulants; Z91.19 Patient's noncompliance with other medical treatment and regimen; Z87.891 Personal history of nicotine dependence
CPT/HCPCS: 36415; 36430; 43239; 45378; 71045; 71260; 74022; 74177; 80048; 80053; 80202; 81001; 813; 82270; 82378; 82607; 82728; 82746; 82962; 83540; 83550; 83605; 83690; 83735; 83880; 84436; 84439; 84443; 84481; 84484; 85025; 85045; 85610; 85730; 86850; 86900; 86901; 86920; 87040; 87635; 88305; 88342; 93005; 93010; 93306; 94640; 99285; C9803; J0282; J0692; J1650; J2405; J2704; J3370; J3480; J3490; J7030; J7040; J7060; J7614; P9016